=== PATIENT | male | born 1940 | race Caucasian/White ===

== ENCOUNTER 2017-01-09 11:25 | Emergency (ER) | payer OTHER, MEDICARE ==
[~2017-01-09] VITALS: Ht 160 cm; Wt 58.5 kg
[~2017-01-09 11:25] MED LIST: MOBIC7.5 M1 PO
[2017-01-09] MEDS ORDERED: FOLIC ACID1 M1 PO (11:41)
[2017-01-09] MEDS ORDERED: PREDNISONE5 M1 PO (11:41)
[2017-01-09] MEDS ORDERED: METHOTREXATE2.5 M2 PO (11:42)
--- NOTE | 2017-01-09 12:53 | ED MVC/FALL/TRAUMA COMPLAINT ---
History of Present Illness General Chief Complaint: Fall Stated Complaint: BIBA FOR L SIDED ABD. PAIN AFTER FALL Source: patient Exam Limitations: no limitations Vital Signs & Intake/Output Vital Signs & Intake/Output Vital Signs Date Time Temp Pulse Resp B/P Pulse O2 O2 Flow FiO2 Ox Delivery Rate 01/09 1132 97.6 102 18 149/79 91 Room Air Allergies Coded Allergies: Sulfa (Sulfonamide Antibiotics) (UNKNOWN 02/12/16) Reconcile Medications Folic Acid 1 MG TABLET 1 TAB PO DAILY SUPPLIMENT (Reported) Meloxicam (Mobic) 7.5 MG TABLET 1 TAB PO DAILY PRN PAIN Methotrexate 2.5 MG TABLET 6 TAB PO QW ARTHRITIS (Reported) Oxycodone HCl/Acetaminophen (Percocet 5-325 MG Tablet) 5 MG-325 MG TABLET 1 TAB PO Q4-6 PRN PAIN Prednisone 5 MG TABLET 1 TAB PO DAILY UNKNOWN (Reported) Triage Note: PT BROUGHT IN BY AMBULANCE FROM HOME AFTER FALLING OUT OF BED YESTERDAY. PT DENIES HITTING HIS HEAD,STATES HE LANDED ON HIS LEFT ARM. ABDOMINAL PAIN STARTED AFTER FALL. Triage Nurses Notes Reviewed? yes Onset: Abrupt Duration: intermittent Timing: recent history Severity: severe Injuries/Fall Location: chest, abdomen Method of Injury: direct blow, fall Loss of Consciousness: no loss of consciousness HPI: Patient is a 76-year-old male who presents emergency room brought in by ambulance for concerns of fall that occurred 2 days ago. Patient states that 2 days ago he got up out of bed slipped and landed to the left side of his body which is arm and hand were adjacent to his abdomen where he believes that is hand struck his left side of his abdomen and chest and which she has been in pain since. Patient at rest has no pain however with movement and palpation make worse. Patient's last bowel movement was 2 days ago no blood no melena noted. Denies any hematuria. Denies any shortness of breath cough hemoptysis back pain neck pain extremity pain. Denies any preceding episode of lightheadedness or dizziness. Patient has not been taking any medications for symptoms. (JATIN MCNAIR,ISAÍAS) Past History Travel History Traveled to [place] past 21 day No Medical History Any Pertinent Medical History? see below for history Respiratory: COPD Musculoskeletal: rheumatoid arthritis Pneumonia Vaccine: 10/30/16 Influenza Vaccine: 10/30/16 Surgical History Surgical History: non-contributory Psychosocial History What is your primary language Wallisian Tobacco Use: Quit >30 days ago ETOH Use: denies use Illicit Drug Use: denies illicit drug use Family History Hx Contributory? No (ISAÍAS HARRIS) Review of Systems Review of Systems Constitutional: Reports: no symptoms. Eyes: Reports: no symptoms. Ears, Nose, Throat, Mouth: Reports: no symptoms. Respiratory: Reports: see HPI. Cardiovascular: Reports: see HPI, chest pain. Gastrointestinal/Abdominal: Reports: no symptoms. Genitourinary: Reports: no symptoms. Musculoskeletal: Reports: no symptoms. Skin: Reports: no symptoms. Neurological/Psychological: Reports: no symptoms. All Other Systems: Reviewed and Negative (ISAÍAS HARRIS) Physical Exam Physical Exam General Appearance: no apparent distress, alert, comfortable Comments: Well-developed well-nourished person in no acute distress HEENT: Normal EENT exam, extraocular motion intact, no nystagmus. Pupils equally round and reactive to light and accommodation. Nose is atraumatic. External auditory canal and Tympanic membranes clear. Pharynx normal. No swelling or edema. Neck: Supple, no lymphadenopathy, normal range of motion without pain or tenderness No central spinous tenderness Back: Nontender, no CVA tenderness. No central spinous tenderness Cardiovascular: Regular rate and rhythms no murmurs rubs or gallops, normal JVP Respiratory: No respiratory distress.breath sounds clear to auscultation bilaterally Abdomen: Soft, nondistended, no appreciable organomegaly. Normal bowel sounds. No ascites Extremity: No edema, no calf tenderness to palpation, normal and equal pulses. Neuro: Alert oriented x3, motor sensory normal, cranial nerves II through XII grossly intact. Skin: No appreciable rash on exposed skin, skin is warm and dry. Psych: Mood and affect is normal, memory and judgment is normal. Diagram Body: 1) Left anterior and lateral chest wall point tenderness noted, normal inspection, Left upper quadrant and flank point tenderness noted Core Measures ACS in differential dx? No Severe Sepsis Present: No Septic Shock Present: No (ISAÍAS HARRIS) Progress Differential Diagnosis: aoritic dissection, abd injury, C/T/L spine injury, ext injury, ICH, pelvis injury, pnemothorax, spinal cord injury Plan of Care: Orders Procedure Date/time Status HEPATIC FUNCTION PANEL 01/09 1325 Complete Laboratory Tests 01/09/17 1330: Total Bilirubin 0.9, Direct Bilirubin 0.5 H, AST 89 H, ALT 186 H, Alkaline Phosphatase 126, Total Protein 5.6 L, Albumin 3.1 L On initial examination patient has concerns of chest wall and abdominal wall contusion and trauma CT scan was obtained which I discussed with radiologist for concerns of significant metastasis There was a finding of a L1 compression fracture most likely subacute in which patient had a nontender central spine. I had a long discussion with the patient and a family member of the CT scan results for concerns of metastasis and I strongly advised patient to follow-up oncology for further evaluation treatment. On discharge patient looks well no apparent distress and will comply with discharge instructions and had no questions. He was noted to me the patient has had weight loss in the past year and which most likely CT scan for concerns of metastasis is an incidental finding Discussed disposition and plan with who agrees (JATIN MCNAIR,ISAÍAS) Diagnostic Imaging: Viewed by Me: CT Scan. Radiology Impression: no fracture, SEE COMMENTS Comments: PATIENT: JULIET DAVIDSON PRESENT AGE: 76 PATIENT ACCOUNT NO: [id number] : 39 LOCATION: [facility] ORDERING PHYSICIAN: ISAÍAS MCNAIR SERVICE DATE: 01/09/17 EXAM TYPE: CAT - CT ABD & PELVIS W/O IV CONTRAS; CT CHEST WO IV CONTRAST Addendum: Of note, the liver is diffusely heterogeneous and there are probably multiple masses visualized within the liver. Findings were all discussed with TABBY Allen at 2:10PM on 01/09/2017. Addendum Signed by: CHOCO LAZO MD 01/09/17 4458 EXAMINATION: CT OF THE CHEST, ABDOMEN, AND PELVIS WITHOUT CONTRAST CLINICAL INFORMATION: Fall. Left chest and abdominal pain. COMPARISON: Chest x-ray from 12/29/2016. MRI of the lumbar spine from 11/05/2016 TECHNIQUE: CT scanning of the chest, abdomen, and pelvis was performed without contrast. Coronal and sagittal reformatted images were generated. FINDINGS: Chest: The aorta is normal in caliber with scattered atherosclerotic calcification. No mediastinal hematomas. There is mediastinal lymphadenopathy, including a 1.3 cm precarinal lymph node. There are several abnormal epigastric lymph nodes and lymph nodes at the gastroesophageal junction. In the subcarinal region, intimately associated with the esophagus there is a 3.1 x 4.0 cm mass or enlarged lymph node. There is esophageal luminal narrowing at this level, and above this fluid within the esophagus. In addition there is right hilar adenopathy. There is associated narrowing of the proximal right-sided bronchi. The heart is normal in caliber. There are scattered coronary calcifications as well as calcifications at the aortic valve. There is a trace amount of pericardial fluid. There is extensive emphysematous change throughout both lungs. There is circumferential pleural thickening within the right hemithorax with some areas of nodularity and overall slight volume loss in the right hemithorax. In addition, there are discrete peripheral nodules measuring 4 to 5 mm within the right upper lobe and fairly extensive nodularity along the right major fissure. There is a somewhat loculated appearing small right pleural effusion with associated compressive atelectasis. There is also peripheral reticular abnormalities in the right lung suggesting some degree of fibrosis. Within the left lung in addition to emphysematous change there are some faint subpleural nodular opacities, the largest of which measures 6 mm, and some reticulation at the left base. Abdomen/pelvis: The liver is not well assessed due to technique. There is a vague area of hypoattenuation measuring approximately 3.6 cm in the anterior right lobe. The gallbladder is unremarkable. Both adrenal glands appear somewhat nodular and thick. Neither kidney demonstrates hydronephrosis. There is an oval 3.5 cm mass within the right kidney with Hounsfield units of approximately 16 suggesting a cyst. Calcification in both renal eduar appear vascular. The pancreas appears unremarkable. Loops of small and large bowel appear normal in caliber. Extensive diverticula are present without evidence of diverticulitis. There is moderate stool in the proximal colon. There is an abrupt caliber change in the region of the splenic flexure. Correlation with colonoscopy is recommended. No convincing mediastinal or retroperitoneal lymph nodes are visualized. No convincing pelvic sidewall lymph nodes are visualized. There is an asymmetric 1.2 cm left inguinal lymph node, nonspecific. There is fusiform dilatation of the infrarenal aorta measuring 2.6 cm with moderate calcification. No ascites or free intraperitoneal air. No significant hernia as in the abdominal wall. The pelvic viscera are notable for prostatic calcifications. The bladder is unremarkable. Osseous structures: There are 5 nonrib-bearing lumbar type vertebral bodies. There is a mild compression deformity along the superior endplate of L1 with sclerosis, new from 11/05/2016. Otherwise there is mild thoracolumbar spondylosis. No convincing acute rib fractures. IMPRESSION: 1. Acute to subacute mild compression deformity of L1 without retropulsion of bony fragments. 2. Constellation of findings within the chest suspicious for malignancy, including a large subcarinal mass with esophageal luminal narrowing, as well as right hilar adenopathy with bronchial narrowing. Additional scattered lymph nodes are described as above. There is abnormal interstitial/reticular markings within the right lung with fairly extensive pleural thickening/nodularity. Comparison to prior cross-sectional studies would be useful. Bronchoscopy may be considered for additional assessment. Underlying emphysematous change is evident bilaterally, with scattered bilateral pulmonary nodules measuring up to 6 mm. 3. Vague 3.6 cm hypoattenuating region within the liver may also reflect neoplasm. Nonspecific bilateral nodularity of both adrenal glands. 4. Abrupt caliber change of the colon at the splenic flexure. Correlation with colonoscopy is recommended. 5. Nonspecific, asymmetric 1.2 cm left inguinal lymph node. 6. Fusiform dilatation of the infrarenal abdominal aorta measuring up to 2.6 cm. (ISAÍAS HARRIS) Departure Departure Disposition: HOME OR SELF CARE Condition: Stable Clinical Impression Primary Impression: Chest wall pain Secondary Impressions: Abdominal wall pain, Metastasis Referrals: ANTHONY BUTLER,POONAM HAQUE MD,ANALISA (PCP/Family) Additional Instructions: As discussed begin the prescription of Percocet for pain. Today please CALL AND follow up TO establish oncologist Dr. CRUZ for further evaluation treatment. If symptoms worsen return to emergency room. Prescriptions waiting at [facility]. Departure Forms: Customer Survey General Discharge Information Prescriptions: Current Visit Scripts Oxycodone HCl/Acetaminophen (Percocet 5-325 MG Tablet) 1 TAB PO Q4-6 PRN PAIN #15 TAB (ISAÍAS HARRIS) PA/GREY TENDER Co-Sign Statement Statement: ED Attending supervision documentation- [X] I saw and evaluated the patient. I have also reviewed all the pertinent lab results and diagnostic results. I agree with the findings and the plan of care as documented in the PA's/GREY TENDER's documentation. [X] I have reviewed the ED Record and agree with the PA's/GREY TENDER's documentation. [] Additions or exceptions (if any) to the PAs/GREY TENDER's note and plan are summarized below: [] (YOUNG BUTLER,REINA)
--- NOTE | 2017-01-09 14:09 | CT SCAN REPORT ---
EXAMINATION: CT OF THE CHEST, ABDOMEN, AND PELVIS WITHOUT CONTRAST CLINICAL INFORMATION: Fall. Left chest and abdominal pain. COMPARISON: Chest x-ray from 12/29/2016. MRI of the lumbar spine from 11/05/2016 TECHNIQUE: CT scanning of the chest, abdomen, and pelvis was performed without contrast. Coronal and sagittal reformatted images were generated. FINDINGS: Chest: The aorta is normal in caliber with scattered atherosclerotic calcification. No mediastinal hematomas. There is mediastinal lymphadenopathy, including a 1.3 cm precarinal lymph node. There are several abnormal epigastric lymph nodes and lymph nodes at the gastroesophageal junction. In the subcarinal region, intimately associated with the esophagus there is a 3.1 x 4.0 cm mass or enlarged lymph node. There is esophageal luminal narrowing at this level, and above this fluid within the esophagus. In addition there is right hilar adenopathy. There is associated narrowing of the proximal right-sided bronchi. The heart is normal in caliber. There are scattered coronary calcifications as well as calcifications at the aortic valve. There is a trace amount of pericardial fluid. There is extensive emphysematous change throughout both lungs. There is circumferential pleural thickening within the right hemithorax with some areas of nodularity and overall slight volume loss in the right hemithorax. In addition, there are discrete peripheral nodules measuring 4 to 5 mm within the right upper lobe and fairly extensive nodularity along the right major fissure. There is a somewhat loculated appearing small right pleural effusion with associated compressive atelectasis. There is also peripheral reticular abnormalities in the right lung suggesting some degree of fibrosis. Within the left lung in addition to emphysematous change there are some faint subpleural nodular opacities, the largest of which measures 6 mm, and some reticulation at the left base. Abdomen/pelvis: The liver is not well assessed due to technique. There is a vague area of hypoattenuation measuring approximately 3.6 cm in the anterior right lobe. The gallbladder is unremarkable. Both adrenal glands appear somewhat nodular and thick. Neither kidney demonstrates hydronephrosis. There is an oval 3.5 cm mass within the right kidney with Hounsfield units of approximately 16 suggesting a cyst. Calcification in both renal eduar appear vascular. The pancreas appears unremarkable. Loops of small and large bowel appear normal in caliber. Extensive diverticula are present without evidence of diverticulitis. There is moderate stool in the proximal colon. There is an abrupt caliber change in the region of the splenic flexure. Correlation with colonoscopy is recommended. No convincing mediastinal or retroperitoneal lymph nodes are visualized. No convincing pelvic sidewall lymph nodes are visualized. There is an asymmetric 1.2 cm left inguinal lymph node, nonspecific. There is fusiform dilatation of the infrarenal aorta measuring 2.6 cm with moderate calcification. No ascites or free intraperitoneal air. No significant hernia as in the abdominal wall. The pelvic viscera are notable for prostatic calcifications. The bladder is unremarkable. Osseous structures: There are 5 nonrib-bearing lumbar type vertebral bodies. There is a mild compression deformity along the superior endplate of L1 with sclerosis, new from 11/05/2016. Otherwise there is mild thoracolumbar spondylosis. No convincing acute rib fractures. IMPRESSION: 1. Acute to subacute mild compression deformity of L1 without retropulsion of bony fragments. 2. Constellation of findings within the chest suspicious for malignancy, including a large subcarinal mass with esophageal luminal narrowing, as well as right hilar adenopathy with bronchial narrowing. Additional scattered lymph nodes are described as above. There is abnormal interstitial/reticular markings within the right lung with fairly extensive pleural thickening/nodularity. Comparison to prior cross-sectional studies would be useful. Bronchoscopy may be considered for additional assessment. Underlying emphysematous change is evident bilaterally, with scattered bilateral pulmonary nodules measuring up to 6 mm. 3. Vague 3.6 cm hypoattenuating region within the liver may also reflect neoplasm. Nonspecific bilateral nodularity of both adrenal glands. 4. Abrupt caliber change of the colon at the splenic flexure. Correlation with colonoscopy is recommended. 5. Nonspecific, asymmetric 1.2 cm left inguinal lymph node. 6. Fusiform dilatation of the infrarenal abdominal aorta measuring up to 2.6 cm.
[2017-01-09] MEDS ORDERED: PERCOCET 5-3251 EACH PO (14:33)
[2017-01-09 14:48] VITALS: BP 150/70
== END 2017-01-09 14:50 ==
LOC: ERH 11:25
DX: R07.89 Other chest pain (principal); R10.9 Unspecified abdominal pain
CPT/HCPCS: 74176

== ENCOUNTER 2017-01-20 08:35 | Inpatient (IN) | payer OTHER, MEDICARE ==
[~2017-01-20] VITALS: Ht 165.1 cm; Wt 59.1 kg
[~2017-01-20 08:35] MED LIST changes: +FOLIC ACID1 M1 PO; +METHOTREXATE2.5 M2 PO; +PERCOCET 5-3251 EACH PO; +PREDNISONE5 M1 PO
[2017-01-20 09:06] LABS: MEAN CORPUSCULAR VOLUME 101.9 FL (80.0-94.0)
[2017-01-20 09:15] LABS: HEMATOCRIT 51.4 % (42-52); MEAN CORPUSCULAR HGB 33.6 PG (27.0-31.0); MEAN PLATELET VOLUME 8.9 FL (7.4-10.4); PLATELET COUNT 192 /CUMM (130-400); RBC DISTRIBUTION WIDTH 19.5 % (11.5-14.5); RED BLOOD CELL CT 5.04 /CUMM (4.70-6.10); WHITE BLOOD CELL COUNT 9.1 /CUMM (4.8-10.8)
--- NOTE | 2017-01-20 09:58 | ED DYSPNEA/ASTHMA COMPLAINT ---
History of Present Illness General Chief Complaint: Dyspnea (COPD, CHF, Other) Stated Complaint: SOB Source: patient, family, old records, EMS Exam Limitations: clinical condition Vital Signs & Intake/Output Vital Signs & Intake/Output Vital Signs Date Time Temp Pulse Resp B/P Pulse O2 O2 Flow FiO2 Ox Delivery Rate 01/20 1750 98.6 104 20 105/70 91 01/20 1614 100 96 01/20 1451 93 BIPAP 60% 01/20 1315 98.6 108 22 98/61 90 BIPAP 60% 01/20 1228 110 92 01/20 1143 108 30 118/68 95 BIPAP 60% 01/20 1133 110 94 01/20 1118 92 Nasal 4.0L Cannula 01/20 1116 105 92 01/20 1112 103 30 106/57 97 BIPAP 100% 01/20 1037 95.9 108 30 112/58 95 BIPAP 100% 01/20 1000 114 34 98/57 91 BIPAP 100% 01/20 0937 156 87 01/20 0924 122 20 90 BIPAP 100% 01/20 0923 95.1 151 26 108/61 01/20 0909 77 Room Air 01/20 0903 95.1 151 26 108/61 77 Room Air Allergies Coded Allergies: Sulfa (Sulfonamide Antibiotics) (UNKNOWN 02/12/16) Reconcile Medications Folic Acid 1 MG TABLET 1 TAB PO DAILY SUPPLIMENT (Reported) Methotrexate 2.5 MG TABLET 6 TAB PO QW ARTHRITIS (Reported) Oxycodone HCl/Acetaminophen (Percocet 5-325 MG Tablet) 5 MG-325 MG TABLET 1 TAB PO Q4-6 PRN PAIN Prednisone 5 MG TABLET 1 TAB PO DAILY UNKNOWN (Reported) Triage Note: 76 Y/O MALE SUZIE FROM HOME FOR EVAL OF SOB SINCE LAST NIGHT; PER EMS, PT WAS DIAGNOSED WITH ? LIVER CANCER AT [place] LAST WEEK - BEGAN HAVING SOB LAST NIGHT BUT WENT TO BED AND WOKE UP MUCH WORSE. PROCUREMENT INTERNSHIP REPORTS 02 SAT IN 70'S ON THEIR ARRIVAL; RECEIVED DUO NEB EN ROUTE. ARRIVES ALERT AND ORIENTED X 4; TACHYPNEIC WITH ACCESSORY MUSCLE USE NOTED. PT REPORTS SOB X 2 DAYS WITH COUGH AND "WHITE PHLEGM". AMARO MUCOUS NOTED IN MOUTH AND AROUND LIPS. LUNGS SOUNDS DIMINISHED WITH CRACKLES. SAT 77% RA. PT STATES DUO NEB TX HELPED. DENIES PAIN. REPORTS DECREASED APPETITE AND PO INTAKE OVER THE LAST FEW DAYS PRE HOSPITAL IV HEPLOCKED. 20G PLACED TO LFA EKG COMPLETE AND SHOWING TACHYCARDIA UP TO 170S, ? SVT. MD JULIEN AT THE BEDSIDE Triage Nurses Notes Reviewed? yes Onset: Last week Duration: day(s):, constant, getting worse Timing: recent history Severity: severe Activities at Onset: rest Prior Episodes/Possible Cause: recent diagnosis of lung cancer Modifying Factors: Worsens With: movement. Associated Symptoms: cough, weakness HPI: One week prior to admission patient was diagnosed with lung cancer and likely metastases to the liver. Since discharge he has had progressive weakness shortness of breath cough fatigue anorexia with discoloration nose hands and feet. There has been no fever chills nausea vomiting diarrhea abdominal pain chest pain headache dysuria bleeding. Past History Travel History Traveled to [place] past 21 day No Medical History Any Pertinent Medical History? see below for history Neurological: NONE EENT: NONE Cardiovascular: NONE Respiratory: COPD Gastrointestinal: NONE Hepatic: ? LIVER CA Renal: NONE Musculoskeletal: rheumatoid arthritis Psychiatric: NONE Endocrine: NONE Blood Disorders: NONE Cancer(s): liver cancer PSYCHOLOGICAL ANTHROPOLOGIST/Reproductive: NONE Pneumonia Vaccine: 10/30/16 Influenza Vaccine: 10/30/16 Surgical History Surgical History: non-contributory Psychosocial History What is your primary language Tuvaluan Tobacco Use: Quit >30 days ago Family History Hx Contributory? No Review of Systems Review of Systems Constitutional: Reports: see HPI, weakness. EENTM: Reports: no symptoms. Respiratory: Reports: see HPI, cough. Cardiovascular: Reports: no symptoms. GI: Reports: no symptoms. Genitourinary: Reports: no symptoms. Musculoskeletal: Reports: no symptoms. Skin: Reports: see HPI, change in skin color. Neurological/Psychological: Reports: no symptoms. Hematologic/Endocrine: Reports: no symptoms. Immunologic/Allergic: Reports: no symptoms. All Other Systems: Reviewed and Negative Physical Exam Physical Exam General Appearance: well developed/nourished, alert, awake, anxious, severe distress, thin Head: atraumatic, normal appearance Eyes: Bilateral: normal appearance, PERRL, EOMI. 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 No Severe Sepsis Present: No Septic Shock Present: No Progress Differential Diagnosis: AMI, COPD, pneumonia Plan of Care: Orders Procedure Date/time Status Regular Diet 01/21 L Active CBC WITHOUT DIFFERENTIAL 01/21 0600 Active BASIC ELECTROLYTES PLUS BUN&CR 01/21 0600 Active Regular Diet 01/20 D Active PARTIAL THROMBOPLASTIN TIME 01/20 2330 Active TROPONIN LEVEL 01/20 2115 Active EKG 01/20 2115 Active Vital Signs 01/20 1450 Active Teach/Educate 01/20 1450 Active Nutritional Intake, Monitor 01/20 1450 Active Isolation 01/20 1450 Active Intake & Output 01/20 1450 Active Patient Care Conference 01/20 1450 Active Activity/Ambulation 01/20 1450 Active TROPONIN LEVEL 01/20 1400 Complete AMMONIA 01/20 1400 Complete LACTIC ACID 01/20 1400 Complete EKG 01/20 1400 Active Code Status 01/20 1249 Active Add-on Test (ER Only) 01/20 1215 Active PULSE OXIMETRY (GEN) 01/20 1210 Active LACTIC ACID 01/20 1147 Complete PROTHROMBIN TIME 01/20 1135 Complete D-DIMER 01/20 1135 Complete OXYGEN SETUP (GEN) 01/20 1121 Complete BIPAP 01/20 1120 Complete Pathway - chart 01/20 1102 Active Patient Data 01/20 1055 Active THYROID STIMULATING HORMONE 01/20 0955 Complete MAGNESIUM 01/20 0955 Complete FREE T4 01/20 0955 Complete Saline Lock 01/20 0938 Active Admit to inpatient 01/20 0938 Active Vital Signs 01/20 0938 Active Activity/Ambulation 01/20 0938 Active Code Status 01/20 0938 Complete EKG 01/20 0916 Active BIPAP 01/20 0915 Complete Intake & Output 01/20 0906 Active ARTERIAL BLOOD GAS (GEN) 01/20 0847 Complete BLOOD CULTURE 01/20 0847 Active TROPONIN LEVEL 01/20 0847 Complete LACTIC ACID 01/20 0847 Complete COMPREHENSIVE METABOLIC PANEL 01/20 0847 Complete CBC WITHOUT DIFFERENTIAL 01/20 0847 Complete B-TYPE NATRIURETIC PEP (BNP) 01/20 0847 Complete EKG 01/20 0842 Active Periph. Inserted Central Cath 01/20 UNK Active House Staff 01/20 UNK Active VTE Mechanical Prophylaxis 01/20 UNK Active Vital Signs 01/20 UNK Complete Telemetry/Utility Manager 01/20 UNK Active Current Medications Sig/Walter Start time Last Medication Dose Stop Time Status Admin Azithromycin 500 MG DAILY 01/21 1000 CAN (Zithromax) Dextrose/Water 250 ML (D5W) Ceftriaxone Sodium 1,000 MG DAILY 01/21 1000 CAN (Rocephin) Ceftazidime 1,000 MG Q12 01/20 2200 AC (Fortaz) Sodium Chloride 1,000 ML Q13H 01/20 2200 AC (Normal Saline 0.9%) Acetaminophen 650 MG Q6P PRN 01/20 1115 AC (Tylenol) Hydromorphone HCl 0.5 MG Q4P PRN 01/20 1115 AC (Dilaudid) Oxycodone/ 1 TAB Q6P PRN 01/20 1115 AC Acetaminophen (Percocet) Laboratory Tests 01/20/17 1515: Lactic Acid 3.8 H, Ammonia 14, Troponin I 0.34 *H 01/20/17 1142: Lactic Acid 6.7 H, PT 16.8 H, INR 1.61 H, D-Dimer 1563 H 01/20/17 1139: Troponin I Cancelled 01/20/17 0955: Anion Gap 18 H, Estimated GFR 42 L, BUN/Creatinine Ratio 19.4, Glucose 91, Lactic Acid 10.4 H, Calcium 9.3, Magnesium 2.1, Total Bilirubin 2.3 H, AST 645 H, ALT 427 H, Alkaline Phosphatase 211 H, Troponin I 0.08, Duq-G-Mleefosppxz Pept 2370 H, Total Protein 4.9 L, Albumin 2.3 L, Globulin 2.6, Albumin/ Globulin Ratio 0.9 L, TSH 0.021 L, Free T4 0.63 L 01/20/17 0915: pH 7.35, pCO2 27 L, pO2 51 L, HCO3 15 L, ABG O2 Sat (Measured) 87.0 L, P-50 (Temp Corrected) YES, Carboxyhemoglobin 1.8, O2 Concentration % 100%, Temperature 95.1 L, Respiration Rate 26, O2 Delivery Method BIPAP, Vent Mode AC , Expiratory Pressure 6, Inspiratory Pressure 22, Phlebotomy Draw Site RIGHT BRACHIAL 01/20/17 0856: CBC w Diff MAN DIFF ORDERED, RBC 5.04, MCV 101.9 H, MCH 33.6 H, RDW 19.5 H, MPV 8.9, Segmented Neutrophils 71, Band Neutrophils 20 H, Lymphocytes 4 L, Monocytes 5, Platelet Estimate ADEQUATE, Anisocytosis 1+, Macrocytic Cells FEW, PUBS MCHC 33.0 Microbiology 01/20 1007 BLOOD: Blood Culture - RECD 01/20 0955 BLOOD: Blood Culture - RECD Diagnostic Imaging: Viewed by Me: Radiology Read. Discussed w/RAD: Radiology Read. CXR Impression: Right mid to lower lung zone airspace disease suspicious for pneumonia. Clinical correlation recommended. There is a small to moderate right pleural effusion. Initial ED EKG: rhythm (svt), RBBB Prior EKG: unchanged Rhythm Strip: sinus tachycardia Departure Departure Time of Disposition: 1000 Disposition: STILL A PATIENT Condition: Guarded Clinical Impression Primary Impression: Obstructive pneumonia Secondary Impressions: Acute prerenal azotemia, Elevated troponin, SVT ( supraventricular tachycardia) Referrals: ANALISA HAQUE MD (PCP/Family) Departure Forms: Customer Survey General Discharge Information Admission Note Spoke With: ANALISA HAQUE MD Documentation of Exam: Documentation of any treatments & extenuating circumstances including Concerns Regarding Discharge (functional status, medication knowledge or non-compliance, living conditions, etc.) that warrant an admission rather than observation: Supplemental oxygen IV antibiotics serial lab exam serial EKG cardiology evaluation oncology evaluation medication adjustment interventional radiology evaluation continuing care discharge planning Critical Care Note Critical Care Note Critical Care Time: 30-74 min (40)
--- NOTE | 2017-01-20 10:19 | RADIOLOGY REPORT ---
EXAMINATION: XR PORTABLE CHEST CLINICAL INFORMATION: Pneumonia. History of COPD and lung metastases with shortness of breath. COMPARISON: Chest radiographs 12/29/2016, CT chest 01/09/2017 TECHNIQUE: Portable AP view of the chest was obtained. FINDINGS: Interval increase in airspace disease within the right mid to lower lung zone. There is a small to moderate right pleural effusion. The left lung is grossly clear. Stable cardiomediastinal silhouette. No pneumothorax. Osseous structures appear intact. IMPRESSION: Right mid to lower lung zone airspace disease suspicious for pneumonia. Clinical correlation recommended. There is a small to moderate right pleural effusion.
--- NOTE | 2017-01-20 10:57 | History & Physical ---
See Addendum General Information and HPI MD Statement: I have seen and personally examined JULIET DAVIDSON and documented this H&P. The patient is a 76 year old M who presented with a patient stated chief complaint of [SHORTNESS OF BREATH]. Source of Information: patient, family, old records History of Present Illness: This is a 76-year-old male with a past medical history of hypertension, rheumatoid arthritis currently on methotrexate and prednisone therapy, former smoker quit 9 months back with a [id number] smoking history ,who presented to the [facility] emergency department after being brought in by his family members for worsening shortness of breath and altered mental status. The patient was seen in emergency department [facility] on 01/09/2017 when the patient had a mechanical fall. The family brought the patient to the ER for suspicion of any rib fractures but the CAT scan and the imaging done at that time showed an incidental finding off metastatic lesion in the lungs neoplastic suspicion mass on the liver. The patient was scheduled for a liver biopsy today but the patient was feeling short of breath since morning and was feeling weak and fatigued and hence was brought to the emergency department by the family for persistent weakness and shortness of breath. As per the patient's son, the patient was complaining of shortness of breath since 3 days back which has worsened over the weekend. He denied any fever or chills but has been having productive sputum with the cough. The son also noted that the patient was having some mild slurring of speech as well which were resolved at the time of admission in the ER. The patient was awake alert oriented 3 when I saw the patient in the ER. The patient apparently completed a course of levofloxacin for 10 days as an outpatient started from December 29 2 01/07/2017. The patient's symptoms did not completely subsided after the antibiotics course. Events notes As per the ER staff and notes The patient's initial saturation was 77% and on examination was found to have. "Bluish grayish discoloration" around the perioral area. The patient was also found to have peripheral cyanosis of hands The patient EKG showed wide complex tachycardia and on the suspicion of supraventricular tachycardia the patient was given 6 mg of IV adenosine after that the patient heart rate went to sinus tachycardia and decreased from 172 TO 108. Allergies/Medications Allergies: Coded Allergies: Sulfa (Sulfonamide Antibiotics) (UNKNOWN 02/12/16) Home Med list Folic Acid 1 MG TABLET 1 TAB PO DAILY SUPPLIMENT (Reported) Methotrexate 2.5 MG TABLET 6 TAB PO QW ARTHRITIS (Reported) Oxycodone HCl/Acetaminophen (Percocet 5-325 MG Tablet) 5 MG-325 MG TABLET 1 TAB PO Q4-6 PRN PAIN Prednisone 5 MG TABLET 1 TAB PO DAILY UNKNOWN (Reported) Past History Travel History Traveled to [place] past 21 day No Medical History Neurological: NONE EENT: NONE Cardiovascular: NONE Respiratory: COPD Gastrointestinal: NONE Hepatic: ? LIVER CA Renal: NONE Musculoskeletal: rheumatoid arthritis Psychiatric: NONE Endocrine: NONE Blood Disorders: NONE Cancer(s): liver cancer SERVICE CONSULTANT/Reproductive: NONE Pneumonia Vaccine: 10/30/16 Influenza Vaccine: 10/30/16 Surgical History Surgical History: non-contributory Past Family/Social History Family History Relations & Conditions if any FATHER BROTHER Relation not specified for: FH: stomach cancer Psychosocial History Where do you live? Home Who Do You Live With? spouse Smoking Status: Former Smoker (quit 9 months back) Review of Systems Review of Systems Constitutional: Reports: see HPI. EENTM: Reports: see HPI. Denies: visual changes. Cardiovascular: Reports: orthopena. Denies: chest pain, edema. Respiratory: Reports: cough, orthopnea, short of breath, sputum production. GI: Denies: bloating, diarrhea, distention, bowel incontinence. Genitourinary: Denies: discharge, dysuria, frequency, hematuria. Musculoskeletal: Denies: joint pain, joint swelling. Neurological/Psychological: Reports: confusion, headache. Exam & Diagnostic Data Last 24 Hrs of Vital Signs/I&O Vital Signs Date Time Temp Pulse Resp B/P Pulse O2 O2 Flow FiO2 Ox Delivery Rate 01/20 1143 108 30 118/68 95 BIPAP 60% 01/20 1133 110 94 01/20 1118 92 Nasal 4.0L Cannula 01/20 1116 105 92 01/20 1112 103 30 106/57 97 BIPAP 100% 01/20 1037 95.9 108 30 112/58 95 BIPAP 100% 01/20 1000 114 34 98/57 91 BIPAP 100% 01/20 0937 156 87 01/20 0924 122 20 90 BIPAP 100% 01/20 0923 95.1 151 26 108/61 01/20 0909 77 Room Air 01/20 0903 95.1 151 26 108/61 77 Room Air Intake & Output 01/20 1600 01/20 0800 01/20 0000 Intake Total 2550 Output Total Balance 2550 Intake, IV 2550 Physical Exam General Appearance Oriented X3, Cooperative, Moderate Distress Skin No Breakdown HEENT Atraumatic, PERRLA, EOMI Neck No JVD, No thryomegaly Lymphatic Axillary nl, Cervical nl Cardiovascular Normal S1, Normal S2 Lungs bilateral decreased airway entry and diminished breath sounds Abdomen Soft, No Tenderness Neurological Strength at 5/5 X4 Ext Extremities No Cyanosis, No Edema Last 24 Hrs of Labs/Jordy: Laboratory Tests 01/20/17 1142: Lactic Acid Pending, PT Pending, INR Pending, D-Dimer Pending 01/20/17 1139: Troponin I Cancelled 01/20/17 0955: Anion Gap 18 H, Estimated GFR 42 L, BUN/Creatinine Ratio 19.4, Glucose 91, Lactic Acid 10.4 H, Calcium 9.3, Total Bilirubin 2.3 H, AST 645 H, ALT 427 H , Alkaline Phosphatase 211 H, Troponin I 0.08, Khd-H-Gsoeliynnez Pept 2370 H, Total Protein 4.9 L, Albumin 2.3 L, Globulin 2.6, Albumin/Globulin Ratio 0.9 L 01/20/17 0915: pH 7.35, pCO2 27 L, pO2 51 L, HCO3 15 L, ABG O2 Sat (Measured) 87.0 L, P-50 (Temp Corrected) YES, Carboxyhemoglobin 1.8, O2 Concentration % 100%, Temperature 95.1 L, Respiration Rate 26, O2 Delivery Method BIPAP, Vent Mode AC , Expiratory Pressure 6, Inspiratory Pressure 22, Phlebotomy Draw Site RIGHT BRACHIAL 01/20/17 0856: CBC w Diff MAN DIFF ORDERED, RBC 5.04, MCV 101.9 H, MCH 33.6 H, RDW 19.5 H, MPV 8.9, Segmented Neutrophils 71, Band Neutrophils 20 H, Lymphocytes 4 L, Monocytes 5, Platelet Estimate ADEQUATE, Anisocytosis 1+, Macrocytic Cells FEW, PUBS MCHC 33.0 Microbiology 01/20 1007 BLOOD: Blood Culture - RECD 01/20 955 BLOOD: Blood Culture - RECD Diagnostic Data EKG Results Wide-complex tachycardia Assessment/Plan Assessment: This 76-year-old male with a past medical history of rheumatoid arthritis, presented to the [facility] emergency department with persistent shortness of breath and mild altered mental status with a history of new diagnosis of metastatic sent as mass found incidentally and the abdominal CAT scan done 2 weeks back. Vitals at the time of admission shows: 108/61, pulse ox of 77 initially which improved to 94% on BiPAP currently on BiPAP at the setting off 22 x 6 and 28, afebrile afebrile temperature of 95.1 Labs at the time of admission shows lactic of 10.4, normal CBC and WBC but with a band neutrophils of 20, Labs chemistry shows a creatinine of 1.6 elevated BUNs, elevated transaminitis ABG shows normal pH 7.35/27/51 and a bicarbonate of 21 Chest x-ray shows Right mid to lower lung zone airspace disease suspicious for pneumonia. There is a small to moderate right pleural effusion. CT scan of the chest and abdomen done on 01/09/2017 shows 1. Acute to subacute mild compression deformity of L1 without retropulsion of bony fragments. 2. Constellation of findings within the chest suspicious for malignancy, including a large subcarinal mass with esophageal luminal narrowing, as well as right hilar adenopathy with bronchial narrowing 3.Vague 3.6 cm hypoattenuating region within the liver may also reflect neoplasm. Nonspecific bilateral nodularity of both adrenal glands. EKG shows wide complex tachycardia to a maximum 170s Assessment 1. Acute hypoxic respiratory failure most likely secondary to obstructive pneumonia(after failure to the outpatient therapy with levofloxacin). The other important differentials that needs to be considered is an acute pulmonary embolism considering the patient diagnosis of metastatic cancer. Another possibility could be the presence of parapneumonic effusion again secondary to unresolved pneumonia to the outpatient therapy and possibly metastatic lesions to the pleura 2. Transaminitis likely secondary to methotrexate toxicity versus neoplastic lesion in the liver 3. History of rheumatoid arthritis 4. Wide complex tachycardia status post 1 dose of 6 mg IV ADENOSINE IN ER 5.lactic acidosis 6.MASHA likley-prerenal Plan: I discussed with the ED staff who recommended that the patient should go to telemetry for continuous pulse oximetry. Patient has low threshold for being transferred to the ICU as the patient is currently full code -We'll start the patient on broad-spectrum antibiotics we will discontinue ceftriaxone and azithromycin and will start on vancomycin and ceftazidime with the first dose now(dose would be adjusted renally) -Stress dose of steroids with the first one given in the ED of 125 mg -Continue with IV fluids at 75 mL per hour -We will repeat set of troponin and EKG -We will proceed with CT head and CT chest(unfortunately could not be performed with and IV contrast considering the patient's elevated creatinine) -We will proceed to get a PICC line to avoid any further(blood draws) -Proceed with transthoracic echocardiogram and place a cardiology consult -We will also call Dr. Mclain(courtesy call) Overall the patient's prognosis remains poor most likely the patient has obstructive pneumonia unlikely to lung cancer primary or secondary but more higher probability for small cell carcinoma considering previous history of smoking. I spoke to the patient's step son and stepdaughter about the patient's poor prognosis and they wanted the patient to be full code at this point. They wanted further discussion on this topic with the patient's primary care physician Dr. Cook. update on 1300: After the patient was brought to the floors the patient's family had a long discussion with the Cesar Liu MD, consulting client manager [employer] on the case and after learning about the poor prognosis the patient himself dictated to be DNR/ DNI. The patient's stepbethon, scottyon were present for the conversation.. Hence the patient would be monitored on telemetry floor on BiPAP and we will continue with all supportive measures including broad-spectrum antibiotics fluids and regular checkup as mentioned above. - As Ranked By This Provider Problem List: 1. Acute prerenal azotemia 2. Metastasis 3. Obstructive pneumonia Core Measures/Miscellaneous Acute Coronary Syndrome ACS Diagnosis: No Cerebrovascular Accident CVA/TIA Diagnosis: No Congestive Heart Failure CHF Diagnosis: No Venous Thromboembolism VTE Risk Factors: Acute medical illness, Age > 40 VTE Prophylaxis Ordered Inpt: Pharm- Lovenox No Mech VTE prophylaxis d/t: No contraindications No VTE Pharm Prophylaxis d/t: No contraindications VTE Diagnosis: No VTE Type: NONE VTE Confirmed by (Test): NONE Severe Sepsis Severe Sepsis Present: No Septic Shock Septic Shock Present: No Miscellaneous Documentation Attending Case Discussed With: ANALISA COOK MD Primary Care Physician: ANALISA COOK MD Patient sees these Specialists Dr Dickens Level of Patient Care: Telemetry
[2017-01-20 12:06] LABS: PT 16.8 SEC (9.4-12.5)
--- NOTE | 2017-01-20 12:37 | CT SCAN REPORT ---
EXAMINATION: CT HEAD WITHOUT CONTRAST CLINICAL INFORMATION: Shortness of breath. COMPARISON: MRI head 07/20/2015 TECHNIQUE: Contiguous axial imaging was performed from the skull base to vertex without intravenous administration of contrast. DLP: 600.71 mGy-cm FINDINGS: There is no evidence of acute intracranial hemorrhage or territorial infarction. No abnormal mass effect or midline shift is seen. Lubin to white matter differentiation is well preserved. No extra-axial fluid collections are identified. The ventricles are normal in size. Periventricular white matter hypodensities are noted, likely representing chronic microvascular ischemic changes. The osseous structures and soft tissues are normal. Carotid siphon calcifications. The mastoid air cells and visualized portions of the paranasal sinuses are well aerated. IMPRESSION: No acute intracranial abnormality. No intracranial hemorrhage or mass effect. Mild chronic microvascular ischemic changes.
--- NOTE | 2017-01-20 12:50 | CT SCAN REPORT ---
EXAMINATION: CT CHEST WITHOUT CONTRAST CLINICAL INFORMATION: Shortness of breath COMPARISON: 01/09/2017 TECHNIQUE: Multidetector volumetric CT imaging of the chest was done. Axial MIP volume rendering provided. Sagittal and coronal reformatted images were obtained. DLP: 243.78 mGy-cm FINDINGS: LUNGS: Since the prior examination, there is increasing opacification throughout the right lower lobe as well as within the adjacent right middle lobe. In the absence of intravenous contrast, it cannot be determined whether this reflects a specific combination of consolidation, atelectasis, and/or mass. There is redemonstrated luminal narrowing of the bronchus intermedius and proximal right lower lobe airways. Air bronchograms are visible within the basilar right lower lobe. There is extensive upper lobe predominant emphysema. There are multiple scattered subcentimeter nodular densities throughout the remainder of the lungs bilaterally, overall without significant change compared to 01/09/2017. New curvilinear opacity in the anterior left lower lobe suggests atelectasis. MEDIASTINUM: There is a redemonstrated subcarinal mass, not well delineated in the absence of intravenous contrast. The bulk of the mass appears without significant change from prior and likely extends into the right hilum. Enlarged lower right paratracheal lymph node and right paracardiac region are again demonstrated. Scattered subcentimeter lymph nodes in the remainder of the mediastinum appear similar to prior. The visualized thyroid gland is unremarkable. Cardiac size is within normal limits. There is trace pericardial fluid. Coronary artery calcifications are present. Aortic valve calcifications are present, a finding which may indicate aortic stenosis. There is atherosclerotic calcification along the aorta. PLEURA: There is a redemonstrated moderate sized pleural effusion at the right base laterally, which appears loculated. No left pleural effusion. AXILLA: No lymphadenopathy. UPPER ABDOMEN: There is suggestion of a mass in the central liver above the anitha hepatis, not adequately evaluated in the absence of intravenous contrast. OSSEOUS STRUCTURES: There is moderate to severe degenerative change of the right glenohumeral joint. Degenerative changes are noted in the spine. Superior endplate compression deformity of L1 is unchanged. IMPRESSION: 1. Redemonstrated intrathoracic findings suspicious for malignancy, including a subcarinal mass likely extending into the right hilum, as well as additional mediastinal lymphadenopathy. 2. In comparison to 01/09/2017, there is increasing airspace opacification throughout the right lower and middle lobes. Redemonstrated narrowing of the central airways in the right middle and lower lobe raise the possibility that this opacification could represent postobstructive inflammation/pneumonia. Underlying mass and/or regions of atelectasis are difficult to exclude in the absence of intravenous contrast. 3. Multiple scattered subcentimeter nodules bilaterally, similar to 01/09/2017. Extensive upper lobe predominant emphysema. 4. Redemonstrated, loculated appearing lateral right basilar pleural effusion. 5. Probable hepatic mass, not adequately assessed in the absence of intravenous contrast. 6. Redemonstrated superior L1 compression deformity, similar to prior.
--- NOTE | 2017-01-20 12:50 | Event Note ---
Event Note Event Note: Full note to follow Pt with Acuter resp failure with liver failure/dysfunction with severe met acidosis due to sepsis and liver failure DIscussed with Patient and discussed with step daughter PTs wishes are to be DNR and DNI with no ICU transfer (NO mech vent, pressors or dialysis) Plan is to do max conservative measures on the floor IF he fails will transition to comfort IF he improves will get a liver bx ABX BIPAP PICC IV fluids ULtrasound lower ext Echo to ass rv function and if his rv is dilated and in strain will start anticoag Prog very poor
--- NOTE | 2017-01-20 13:04 | Admission Certification ---
Admission Certification Certification Statement - As attending physician, I certify that at the time of - admission, based on clinical presentation, severity of - symptoms, need for further diagnostic testing and - therapeutic interventions, and risk of adverse outcomes - without in-hospital treatment, in my clinical assessment, - this patient requires an acute hospital stay for a minimum - of two nights or longer. I have also considered psychsocial - factors such as support system, advanced age, financial - issues, cognitive issues, and failed out-patient treatments, - past re-admission history, safety of patient, and lack of - compliance as applicable. Specific rationale supporting this admission is: Acute respiratory failure in a patient with history of COPD and and no diagnosed stopped if lung mass
--- NOTE | 2017-01-20 13:09 | PN- Att Addend ---
Attending Addendum Attending Brief Note 76-year-old male with rheumatoid arthritis COPD, was a heavy smoker quit recently not feeling well recently diagnosed a possible malignancy workup was started and he has been feeling more short of breath worse today came into the emergency room in acute respiratory failure lethargic. Was seen by Dr. Liu who reviewed the case and after that spoke to the family and was decided to make him DNR/DNI try to treat the postobstructive pneumonia and being on BiPAP no intubation. Patient arrived to the floor seems a little bit more comfortable and grandson at the bedside. We'll also notified oncologist and also will have a cardiology evaluation to to some EKG abnormalities the patient is already on telemetry. Laboratory Tests 01/20 01/20 01/20 1142 1139 [id number] Chemistry Sodium (137 - 145 mmol/L) 143 Potassium (3.5 - 5.1 mmol/L) 4.9 Chloride (98 - 107 mmol/L) 105 Carbon Dioxide (22 - 30 mmol/L) 21 L Anion Gap (5 - 16) 18 H BUN (9 - 20 mg/dL) 31 H Creatinine (0.7 - 1.2 mg/dL) 1.6 H Estimated GFR (>60 ml/min) 42 L BUN/Creatinine Ratio (7 - 25 %) 19.4 Glucose (65 - 99 mg/dL) 91 Lactic Acid (0.7 - 2.1 mmol/L) 6.7 H 10.4 H Calcium (8.4 - 10.2 mg/dL) 9.3 Magnesium (1.6 - 2.3 mg/dL) 2.1 Total Bilirubin (0.2 - 1.3 mg/dL) 2.3 H AST (17 - 59 U/L) 645 H ALT (21 - 72 U/L) 427 H Alkaline Phosphatase (< 127 U/L) 211 H Troponin I (<0.11 ng/ml) Cancelled 0.08 Ayp-S-Euseywjihlo Pept (<125 pg/mL) 2370 H Total Protein (6.3 - 8.2 g/dL) 4.9 L Albumin (3.5 - 5.0 g/dL) 2.3 L Globulin (1.9 - 4.2 gm/dL) 2.6 Albumin/Globulin Ratio (1.1 - 2.2 %) 0.9 L TSH (0.270 - 4.200 uIU/mL) Pending Free T4 (0.78 - 2.44 ng/dL) 0.63 L Coagulation PT (9.4 - 12.5 SEC) 16.8 H INR (0.90 - 1.17) 1.61 H D-Dimer (70 - 232 ng/ml) 1563 H 01/20 01/20 0915 0856 Blood Gas pH (7.35 - 7.45 PH) 7.35 pCO2 (35 - 45 TORR) 27 L pO2 (80 - 100 TORR) 51 L HCO3 (21 - 28 MEQ/L) 15 L ABG O2 Sat (Measured) (>96.0 %) 87.0 L P-50 (Temp Corrected) YES Carboxyhemoglobin (1.5 - 5.0 %) 1.8 O2 Concentration % 100% Temperature (97.0 - 100.0 FARH) 95.1 L Respiration Rate (BPM) 26 O2 Delivery Method BIPAP Vent Mode AC Expiratory Pressure (CM H2O P) 6 Inspiratory Pressure (CM H2O P) 22 Hematology CBC w Diff MAN DIFF ORDERED WBC (4.8 - 10.8 /CUMM) 9.1 RBC (4.70 - 6.10 /CUMM) 5.04 Hgb (14.0 - 18.0 G/DL) 17.0 Hct (42 - 52 %) 51.4 MCV (80.0 - 94.0 FL) 101.9 H MCH (27.0 - 31.0 PG) 33.6 H RDW (11.5 - 14.5 %) 19.5 H Plt Count (130 - 400 /CUMM) 192 MPV (7.4 - 10.4 FL) 8.9 Segmented Neutrophils (42.2 - 75.2 %) 71 Band Neutrophils (0.0 - 5.0 %) 20 H Lymphocytes (20.5 - 51.1 %) 4 L Monocytes (1.7 - 9.3 %) 5 Platelet Estimate (ADEQUATE) ADEQUATE Anisocytosis 1+ Macrocytic Cells FEW PUBS MCHC (33.0 - 37.0 G/DL) 33.0 Miscellaneous Phlebotomy Draw Site RIGHT BRACHIAL Abnormal chest x-ray and CT of the chest.
[2017-01-20 13:15] VITALS: BP 98/61
--- NOTE | 2017-01-20 15:51 | Event Note ---
Event Note Event Note: I spoke to Dr. Loaiza regarding the patient's white tachycardia and the elements in the ED which she received adenosine for the suspicion of SVT. I also requested requested him to see and review the patient's transthoracic echocardiogram and evaluate and measure pulmonary pressures and look for any right heart strain. In the meanwhile he recommended that it would be reasonable to start the patient on IV heparin for high suspicion of Pulmonary embolism.
--- NOTE | 2017-01-20 15:59 | Event Note ---
Event Note Event Note: Had a long conversation with the patient's stepdaughter (Kaitlyn )and stepson. The bruits were very clear and were in agreement with the patient's decision of being DNR/DNI. They also mentioned that at any point if the patient is having agonal breathing, or has increased work of breathing or has worsening respiratory symptoms and signs the patient should be started on comfort measures that is IV morphine and Ativan. They requested that they should be notified on [phone] before starting the comfort measures. In the meanwhile we will continue with broad-spectrum antibiotics and IV heparin and will follow up with pulmonology and cardiology recommendations.
--- NOTE | 2017-01-20 16:02 | RADIOLOGY REPORT ---
EXAMINATION: XR PORTABLE CHEST CLINICAL INFORMATION: PICC line placement. COMPARISON: CT of the chest done today. Chest x-ray done 01/20/2017. TECHNIQUE: Portable AP portable semierect view of the chest was obtained. FINDINGS: The dens consolidation involving the lower half of the right hemithorax is due to combination of consolidation and loculated pleural effusion. There is no improvement since exam done earlier in the day. Reticular opacities involve the right upper lobe. This could also represent a pneumonia superimposed upon emphysematous lung disease. The left lung is clear. The tip of the right-sided PICC line is the distal SVC. IMPRESSION: The tip of the right-sided PICC line is in the distal SVC. No improvement in the right lower lobe consolidation, loculated right pleural effusion, and reticular opacities the right upper lobe.
--- NOTE | 2017-01-20 16:42 | ULTRASOUND REPORT ---
EXAMINATION: US TRIPLEX LOWER EXTREMITY, BILATERAL CLINICAL INFORMATION: Hypoxia, lower extremity edema COMPARISON: None TECHNIQUE: Color-flow triplex imaging with spectral analysis and compression Doppler were performed on the bilateral lower extremities. FINDINGS: Respiratory variation, normal compression and augmented flow are noted throughout the bilateral lower extremities. The visualized common femoral vein, superficial femoral vein, profunda femoral vein, popliteal vein and midcalf peroneal and posterior tibial venous segments show no evidence of deep venous thrombosis. There is no Cat's cyst. IMPRESSION: Normal triplex scan without evidence of deep venous thrombosis involving the bilateral lower extremities.
--- NOTE | 2017-01-20 17:48 | Cons- Pulmonary ---
General Information and HPI Consulting Request Date of Consult: 01/20/17 Requested By: [facility] History of Present Illness: This is a 76-year-old male with a past medical history of hypertension, rheumatoid arthritis currently on methotrexate and prednisone therapy, former smoker quit 9 months back with a [id number] smoking history ,who presented to the [facility] emergency department after being brought in by his family members for worsening shortness of breath and altered mental status. The patient was seen in emergency department [facility] on 01/09/2017 when the patient had a mechanical fall. The family brought the patient to the ER for suspicion of any rib fractures but the CAT scan and the imaging done at that time showed an incidental finding off metastatic lesion in the lungs neoplastic suspicion mass on the liver. The patient was scheduled for a liver biopsy today but the patient was feeling short of breath since morning and was feeling weak and fatigued and hence was brought to the emergency department by the family for persistent weakness and shortness of breath. As per the patient's son, the patient was complaining of shortness of breath since 3 days back which has worsened over the weekend. He denied any fever or chills but has been having productive sputum with the cough. The son also noted that the patient was having some mild slurring of speech as well which were resolved at the time of admission in the ER. The patient was awake alert oriented 3 when I saw the patient in the ER. The patient apparently completed a course of levofloxacin for 10 days as an outpatient started from December 29 2 01/07/2017. The patient's symptoms did not completely subsided after the antibiotics course. Events notes As per the ER staff and notes The patient's initial saturation was 77% and on examination was found to have. "Bluish grayish discoloration" around the perioral area. The patient was also found to have peripheral cyanosis of hands The patient EKG showed wide complex tachycardia and on the suspicion of supraventricular tachycardia the patient was given 6 mg of IV adenosine after that the patient heart rate went to sinus tachycardia and decreased from 172 TO 108. Review of Systems Constitutional: Reports: see HPI. EENTM: Reports: see HPI. Denies: visual changes. Cardiovascular: Reports: orthopena. Denies: chest pain, edema. Respiratory: Reports: cough, orthopnea, short of breath, sputum production. GI: Denies: bloating, diarrhea, distention, bowel incontinence. Genitourinary: Denies: discharge, dysuria, frequency, hematuria. Musculoskeletal: Denies: joint pain, joint swelling. Neurological/Psychological: Reports: confusion, headache. Allergies/Medications Allergies: Coded Allergies: Sulfa (Sulfonamide Antibiotics) (UNKNOWN 02/12/16) Home Med List: Folic Acid 1 MG TABLET 1 TAB PO DAILY SUPPLIMENT (Reported) Methotrexate 2.5 MG TABLET 6 TAB PO QW ARTHRITIS (Reported) Oxycodone HCl/Acetaminophen (Percocet 5-325 MG Tablet) 5 MG-325 MG TABLET 1 TAB PO Q4-6 PRN PAIN Prednisone 5 MG TABLET 1 TAB PO DAILY UNKNOWN (Reported) Review of Systems Review of Systems Constitutional: Reports: see HPI. Past History Travel History Traveled to [place] past 21 day No Medical History Blood Transfusion Hx: No Neurological: NONE EENT: NONE Cardiovascular: NONE Respiratory: COPD Gastrointestinal: NONE Hepatic: ? LIVER CA Renal: NONE Musculoskeletal: rheumatoid arthritis Psychiatric: NONE Endocrine: NONE Blood Disorders: NONE Cancer(s): liver cancer FELT FINISHER/Reproductive: NONE Surgical History Surgical History: non-contributory Family History Relations & Conditions If Any: FATHER BROTHER Relation not specified for: FH: stomach cancer Psychosocial History Where Do You Live? Home Who Do You Live With? spouse Services at Home: None Smoking Status: Former Smoker (quit 9 months back) Exam & Diagnostic Data Last 24 Hrs of Vital Signs/I&O Vital Signs Date Time Temp Pulse Resp B/P Pulse O2 O2 Flow FiO2 Ox Delivery Rate 01/20 1614 100 96 01/20 1451 93 BIPAP 60% 01/20 1315 98.6 108 22 98/61 90 BIPAP 60% 01/20 1228 110 92 01/20 1143 108 30 118/68 95 BIPAP 60% 01/20 1133 110 94 01/20 1118 92 Nasal 4.0L Cannula 01/20 1116 105 92 01/20 1112 103 30 106/57 97 BIPAP 100% 01/20 1037 95.9 108 30 112/58 95 BIPAP 100% 01/20 1000 114 34 98/57 91 BIPAP 100% 01/20 0937 156 87 01/20 0924 122 20 90 BIPAP 100% 01/20 0923 95.1 151 26 108/61 01/20 0909 77 Room Air 01/20 0903 95.1 151 26 108/61 77 Room Air Intake & Output 01/20 1600 01/20 0800 01/20 0000 Intake Total 3090 Output Total Balance 3090 Intake, IV 2850 Intake, Oral 240 Patient 130 lb Weight Last 48 Hrs of Labs/Jordy: Laboratory Tests 01/20/17 1515: Lactic Acid 3.8 H, Ammonia 14, Troponin I 0.34 *H 01/20/17 1142: Lactic Acid 6.7 H, PT 16.8 H, INR 1.61 H, D-Dimer 1563 H 01/20/17 1139: Troponin I Cancelled 01/20/17 0955: Anion Gap 18 H, Estimated GFR 42 L, BUN/Creatinine Ratio 19.4, Glucose 91, Lactic Acid 10.4 H, Calcium 9.3, Magnesium 2.1, Total Bilirubin 2.3 H, AST 645 H, ALT 427 H, Alkaline Phosphatase 211 H, Troponin I 0.08, Qnb-C-Eqaqpsvpztc Pept 2370 H, Total Protein 4.9 L, Albumin 2.3 L, Globulin 2.6, Albumin/ Globulin Ratio 0.9 L, TSH 0.021 L, Free T4 0.63 L 01/20/17 0915: pH 7.35, pCO2 27 L, pO2 51 L, HCO3 15 L, ABG O2 Sat (Measured) 87.0 L, P-50 (Temp Corrected) YES, Carboxyhemoglobin 1.8, O2 Concentration % 100%, Temperature 95.1 L, Respiration Rate 26, O2 Delivery Method BIPAP, Vent Mode AC , Expiratory Pressure 6, Inspiratory Pressure 22, Phlebotomy Draw Site RIGHT BRACHIAL 01/20/17 0856: CBC w Diff MAN DIFF ORDERED, RBC 5.04, MCV 101.9 H, MCH 33.6 H, RDW 19.5 H, MPV 8.9, Segmented Neutrophils 71, Band Neutrophils 20 H, Lymphocytes 4 L, Monocytes 5, Platelet Estimate ADEQUATE, Anisocytosis 1+, Macrocytic Cells FEW, PUBS MCHC 33.0 Assessment/Plan Impression/Plan: Physical Exam General Appearance Oriented X3, Cooperative, Moderate Distress Skin No Breakdown HEENT Atraumatic, PERRLA, EOMI Neck No JVD, No thryomegaly Lymphatic Axillary nl, Cervical nl Cardiovascular Normal S1, Normal S2 Lungs bilateral decreased airway entry and diminished breath sounds Abdomen Soft, No Tenderness Neurological Strength at 5/5 X4 Ext Extremities No Cyanosis, No Edema IMPRESSION: 1. Redemonstrated intrathoracic findings suspicious for malignancy, including a subcarinal mass likely extending into the right hilum, as well as additional mediastinal lymphadenopathy. 2. In comparison to 01/09/2017, there is increasing airspace opacification throughout the right lower and middle lobes. Redemonstrated narrowing of the central airways in the right middle and lower lobe raise the possibility that this opacification could represent postobstructive inflammation/pneumonia. Underlying mass and/or regions of atelectasis are difficult to exclude in the absence of intravenous contrast. 3. Multiple scattered subcentimeter nodules bilaterally, similar to 01/09/2017. Extensive upper lobe predominant emphysema. 4. Redemonstrated, loculated appearing lateral right basilar pleural effusion. 5. Probable hepatic mass, not adequately assessed in the absence of intravenous contrast. 6. Redemonstrated superior L1 compression deformity, similar to prior. IMPRESSION 1. Acute hypoxic respiratory failure most likely secondary to obstructive pneumonia(after failure to the outpatient therapy with levofloxacin). 2. Metastatic disease with extensive liver mets now with sig met acidosis due to hepatic dysfunction 3. Sig PNa Post obstructive with Pleural mets 4. Altered lfts due to prob liver mets 5 History of rheumatoid arthritis and hence immunosuppresed 7. Wide complex tachycardia status post 1 dose of 6 mg IV ADENOSINE IN ER 7. lactic acidosis 8. MASHA rosario-prerenal REC DIscussed with Patient and discussed with step daughter PTs wishes are to be DNR and DNI with no ICU transfer (NO mech vent, pressors or dialysis) Plan is to do max conservative measures on the floor IF he fails will transition to comfort IF he improves will get a liver bx ABX BIPAP PICC IV fluids, Broad spectrum abx for now ULtrasound lower ext Echo to ass rv function and if his rv is dilated and in strain will start anticoag Prog very poor Pt critically ill tts 50 mins Consult Acknowledgment - Thank you for your consult request.
[2017-01-20 17:50] VITALS: BP 105/70
--- NOTE | 2017-01-20 17:51 | ECHOCARDIOGRAM REPORT ---
JULIET DAVIDSON Age: 76 : 1940 Gender: M Exam Date: 01/20/2017 16:46 Exam Location: [facility] Ht (in): 65 Wt (lb): 130 BSA: 1.65 BP: 98 / 61 Ordering Physician: SEMAJ GO MD Referring Physician: SEMAJ GO MD Technologist: Claire Peralta RDCS Room Number: 178 Indications: SHORTNESS OF BREATH Rhythm: Sinus Technical Quality: Technically difficult study FINDINGS Left Ventricle Normal left ventricular size and wall thickness. Normal left ventricular ejection fraction visually estimated at >65 %. No obvious regional wall motion abnormalities. Abnormal relaxation filling pattern of the left ventricle for age (stage 1 diastolic dysfunction). Right Ventricle Right ventricle not well visualized, grossly normal. Right Atrium Right atrium not well visualized, grossly normal. Left Atrium Normal left atrial size. Mitral Valve Mitral valve not well visualized, grossly normal. No mitral regurgitation. Aortic Valve Aortic valve not well visualized, grossly normal. No aortic stenosis. Mild aortic regurgitation. Tricuspid Valve Tricuspid valve not well visualized, grossly normal. No tricuspid regurgitation. Unable to estimate the right ventricular systolic pressure. Pulmonic Valve Pulmonic valve not well visualized. Pericardium No pericardial or pleural effusion. Great Vessels Normal size aortic root. CONCLUSIONS This is a technically difficult study and is limited. Normal left ventricular size and wall thickness. Normal left ventricular ejection fraction visually estimated at >65 Abnormal relaxation filling pattern of the left ventricle for age (stage 1 diastolic dysfunction). Normal left atrial size. Valvular structures are not well visualized. Mild aortic regurgitation is seen. Joe Mcgrath M.D. (Electronically Signed) Final Date: 20 January 2017 17:51 MEASUREMENTS (Male / Female) Normal Values 2D ECHO LV Diastolic Diameter PLAX 3.1 cm 4.2 - 5.9 / 3.9 - 5.3 cm LV Systolic Diameter PLAX 2.1 cm 2.1 - 4.0 cm LV Fractional Shortening PLAX 32.3 % 25 - 46 % LV Ejection Fraction 2D Teich 62.0 % IVS Diastolic Thickness 0.9 cm LVPW Diastolic Thickness 1.2 cm LV Relative Wall Thickness 0.7 RV Internal Dim ED PLAX 2.6 cm 1.9 - 3.8 cm LVOT Diameter 1.9 cm Aortic Root Diameter 3.2 cm LA Systolic Diameter LX 2.6 cm 3.0 - 4.0 / 2.7 - 3.8 cm LA Volume 26.0 cm 18 - 58 / 22 - 52 cm DOPPLER AV Peak Velocity 192.0 cm/s AV Peak Gradient 14.7 mmHg AV Mean Velocity 138.0 cm/s AV Mean Gradient 9.0 mmHg AV Velocity Time Integral 30.7 cm LVOT Peak Velocity 105.0 cm/s LVOT Peak Gradient 4.4 mmHg LVOT Mean Velocity 63.5 cm/s LVOT Mean Gradient 2.0 mmHg LVOT Velocity Time Integral 14.7 cm LVOT Stroke Volume 41.7 cm AV Area Cont Eq vti 1.4 cm AV Area Cont Eq pk 1.6 cm MV Peak Velocity 98.2 cm/s MV Peak Gradient 3.9 mmHg MV Mean Velocity 57.4 cm/s MV Mean Gradient 2.0 mmHg Mitral E Point Velocity 49.9 cm/s Mitral A Point Velocity 89.3 cm/s Mitral E to A Ratio 0.6 MV PHT Velocity 91.1 cm/s MV Deceleration [place] 363.0 cm/s MV Pressure Half Time 75.3 ms MV Area PHT 2.9 cm MV Deceleration Time 206.0 ms LV E' Lateral Velocity 6.2 cm/s Mitral E to LV E' Lateral Ratio 8.0 LV E' Septal Velocity 5.0 cm/s Mitral E to LV E' Septal Ratio 10.0
--- NOTE | 2017-01-20 19:43 | Cons- Cardiology ---
General Information and HPI Consulting Request Date of Consult: 01/20/17 Requested By: ANALISA HAQUE MD Reason for Consult: Shortness of breath and positive troponin I. Source of Information: patient, family, old records Exam Limitations: poor historian History of Present Illness: Mr. Roel Mar is a 76-year-old male with a history of hypertension, rheumatoid arthritis on methotrexate and prednisone, former heavy smoker, and recently diagnosed metastatic lung carcinoma who presented to the ED with progressive shortness of breath and altered mental status following a completed 10 day outpatient course of antimicrobial therapy without improvement and a suspicion that the patient might have a pulmonary embolism with an elevated d- dimer, troponin I, etc. without any associated acute electrocardiographic changes other than earlier marked sinus tachycardia with transient slowing following the administration of adenosine. Allergies/Medications Allergies: Coded Allergies: Sulfa (Sulfonamide Antibiotics) (UNKNOWN 02/12/16) Home Med List: Folic Acid 1 MG TABLET 1 TAB PO DAILY SUPPLIMENT (Reported) Methotrexate 2.5 MG TABLET 6 TAB PO QW ARTHRITIS (Reported) Oxycodone HCl/Acetaminophen (Percocet 5-325 MG Tablet) 5 MG-325 MG TABLET 1 TAB PO Q4-6 PRN PAIN Prednisone 5 MG TABLET 1 TAB PO DAILY UNKNOWN (Reported) Review of Systems Review of Systems: Unobtainable. Past History Travel History Traveled to [place] past 21 day No Medical History Blood Transfusion Hx: No Neurological: NONE EENT: NONE Cardiovascular: NONE Respiratory: COPD Gastrointestinal: NONE Hepatic: ? LIVER CA Renal: NONE Musculoskeletal: rheumatoid arthritis Psychiatric: NONE Endocrine: NONE Blood Disorders: NONE Cancer(s): liver cancer SLUBBER TENDER/Reproductive: NONE Surgical History Surgical History: non-contributory Family History Relations & Conditions If Any: FATHER BROTHER Relation not specified for: FH: stomach cancer Psychosocial History Where Do You Live? Home Who Do You Live With? spouse Services at Home: None Smoking Status: Former Smoker (quit 9 months back) Exam & Diagnostic Data Vital Signs and I&O Vital Signs Date Time Temp Pulse Resp B/P Pulse O2 O2 Flow FiO2 Ox Delivery Rate 01/20 1750 98.6 104 20 105/70 91 01/20 1614 100 96 01/20 1451 93 BIPAP 60% 01/20 1315 98.6 108 22 98/61 90 BIPAP 60% 01/20 1228 110 92 01/20 1143 108 30 118/68 95 BIPAP 60% 01/20 1133 110 94 01/20 1118 92 Nasal 4.0L Cannula 01/20 1116 105 92 01/20 1112 103 30 106/57 97 BIPAP 100% 01/20 1037 95.9 108 30 112/58 95 BIPAP 100% 01/20 1000 114 34 98/57 91 BIPAP 100% 01/20 0937 156 87 01/20 0924 122 20 90 BIPAP 100% 01/20 0923 95.1 151 26 108/61 01/20 0909 77 Room Air 01/20 0903 95.1 151 26 108/61 77 Room Air Intake & Output 01/20 1600 01/20 0800 01/20 0000 01/19 1600 01/19 0800 01/19 0000 Intake Total 3090 Output Total Balance 3090 Intake, IV 2850 Intake, Oral 240 Patient 130 lb Weight Physical Exam: Chronically ill-appearing elderly male in mild respiratory distress with oxygen in place. Vital signs: See above. HEENT: Normocephalic, atraumatic, EOMI, dry mucous membranes. Neck: No JVD, no bruits. Lungs: Bilateral wheezing and rhonchi. Heart: S1, S2 with no murmur, gallop, or rub appreciated. PMI fifth ICS at MCL. Slight abdomen: Soft, nontender, positive bowel sounds. Extremities: 1+ bilateral lower extremity edema. Labs/Jordy Results: Laboratory Tests 01/20 01/20 01/20 01/20 1515 1142 1139 0955 Chemistry Sodium (137 - 145 mmol/L) 143 Potassium (3.5 - 5.1 mmol/L) 4.9 Chloride (98 - 107 mmol/L) 105 Carbon Dioxide (22 - 30 mmol/L) 21 L Anion Gap (5 - 16) 18 H BUN (9 - 20 mg/dL) 31 H Creatinine (0.7 - 1.2 mg/dL) 1.6 H Estimated GFR (>60 ml/min) 42 L BUN/Creatinine Ratio (7 - 25 %) 19.4 Glucose (65 - 99 mg/dL) 91 Lactic Acid (0.7 - 2.1 mmol/L) 3.8 H 6.7 H 10.4 H Calcium (8.4 - 10.2 mg/dL) 9.3 Magnesium (1.6 - 2.3 mg/dL) 2.1 Total Bilirubin (0.2 - 1.3 mg/dL) 2.3 H AST (17 - 59 U/L) 645 H ALT (21 - 72 U/L) 427 H Alkaline Phosphatase (< 127 U/L) 211 H Ammonia (9 - 30 umol/L) 14 Troponin I (<0.11 ng/ml) 0.34 *H Cancelled 0.08 [id number] Pept (<125 pg/mL) 2370 H Total Protein (6.3 - 8.2 g/dL) 4.9 L Albumin (3.5 - 5.0 g/dL) 2.3 L Globulin (1.9 - 4.2 gm/dL) 2.6 Albumin/Globulin Ratio (1.1 - 2.2 %) 0.9 L TSH (0.270 - 4.200 uIU/mL) 0.021 L Free T4 (0.78 - 2.44 ng/dL) 0.63 L Coagulation PT (9.4 - 12.5 SEC) 16.8 H INR (0.90 - 1.17) 1.61 H D-Dimer (70 - 232 ng/ml) 1563 H 01/20 01/20 0915 0856 Blood Gas pH (7.35 - 7.45 PH) 7.35 pCO2 (35 - 45 TORR) 27 L pO2 (80 - 100 TORR) 51 L HCO3 (21 - 28 MEQ/L) 15 L ABG O2 Sat (Measured) (>96.0 %) 87.0 L P-50 (Temp Corrected) YES Carboxyhemoglobin (1.5 - 5.0 %) 1.8 O2 Concentration % 100% Temperature (97.0 - 100.0 FARH) 95.1 L Respiration Rate (BPM) 26 O2 Delivery Method BIPAP Vent Mode AC Expiratory Pressure (CM H2O P) 6 Inspiratory Pressure (CM H2O P) 22 Hematology CBC w Diff MAN DIFF ORDERED WBC (4.8 - 10.8 /CUMM) 9.1 RBC (4.70 - 6.10 /CUMM) 5.04 Hgb (14.0 - 18.0 G/DL) 17.0 Hct (42 - 52 %) 51.4 MCV (80.0 - 94.0 FL) 101.9 H MCH (27.0 - 31.0 PG) 33.6 H RDW (11.5 - 14.5 %) 19.5 H Plt Count (130 - 400 /CUMM) 192 MPV (7.4 - 10.4 FL) 8.9 Segmented Neutrophils (42.2 - 75.2 %) 71 Band Neutrophils (0.0 - 5.0 %) 20 H Lymphocytes (20.5 - 51.1 %) 4 L Monocytes (1.7 - 9.3 %) 5 Platelet Estimate (ADEQUATE) ADEQUATE Anisocytosis 1+ Macrocytic Cells FEW PUBS MCHC (33.0 - 37.0 G/DL) 33.0 Miscellaneous Phlebotomy Draw Site RIGHT BRACHIAL Diagnostic Data EKG Results (01/20/2017) mild sinus tachycardia and incomplete right bundle branch block. Much slower rate when compared to earlier tracing from earlier today. CXR Results (01/20/2017) The tip of the right-sided PICC line is in the distal SVC. No improvement in the right lower lobe consolidation, loculated right pleural effusion, and reticular opacities the right upper lobe. Other Results Echocardiogram (01/20/2017) This is a technically difficult study and is limited. Normal left ventricular size and wall thickness. Normal left ventricular ejection fraction visually estimated at >65%. Abnormal relaxation filling pattern of the left ventricle for age (stage 1 diastolic dysfunction). Normal left atrial size. Valvular structures are not well visualized. Mild aortic regurgitation is seen. Chest CT (01/20/2017) 1. Redemonstrated intrathoracic findings suspicious for malignancy, including a subcarinal mass likely extending into the right hilum, as well as additional mediastinal lymphadenopathy. 2. In comparison to 01/09/2017, there is increasing airspace opacification throughout the right lower and middle lobes. Redemonstrated narrowing of the central airways in the right middle and lower lobe raise the possibility that this opacification could represent postobstructive inflammation/pneumonia. Underlying mass and/or regions of atelectasis are difficult to exclude in the absence of intravenous contrast. 3. Multiple scattered subcentimeter nodules bilaterally, similar to 01/09/2017. Extensive upper lobe predominant emphysema. 4. Redemonstrated, loculated appearing lateral right basilar pleural effusion. 5. Probable hepatic mass, not adequately assessed in the absence of intravenous contrast. 6. Redemonstrated superior L1 compression deformity, similar to prior. Assessment/Plan Assessment/Plan Elderly male with recently diagnosed metastatic lung carcinoma who presented with worsening shortness of breath and altered mental status after a 10 day course of antimicrobial therapy that did not improve the situation and concerns that the patient might have pulmonary embolism based on his presentation, d-dimer elevation, troponin I elevation, earlier marked sinus tachycardia without other acute electrocardiographic changes, etc. with a technically poor echocardiographic study without good visualization of the right ventricle and an inability to calculate an estimated PA systolic pressure, etc. Clearly, do not want to place Mr. Mar on anticoagulation therapy unless there is a high probability for pulmonary embolism and as such would recommend a ventilation perfusion scan. Suspect that the troponin I elevation is not secondary to an acute coronary syndrome, but rather secondary to demand ischemia (critical illness, tachycardia , etc.). Follow-up on pulmonary recommendations regarding management of pneumonia. Follow-up on oncology recommendations regarding management of metastatic lung carcinoma. Consult Acknowledgment - Thank you for your consult request.
[2017-01-21 00:04] VITALS: BP 140/70
[2017-01-21 00:22] LABS: PTT 62 SEC (25-37)
--- NOTE | 2017-01-21 05:02 | PN- Housestaff ---
Subjective Follow-up For: Obstructive PNA. ?SVT Sinus tachycardia Suspicious Metastsic Lung cancer(no tissue biopsy performed) Gram positive Bacteremia Subjective: The patient remained on high flow oxygen the whole night. Remained afebrile. He has been tolerating high flow oxygen well. Feels better than yesterday but still tired("doc I am a little decent today"). Review of Systems Constitutional: Reports: see HPI. Objective Last 24 Hrs of Vital Signs/I&O Vital Signs Date Time Temp Pulse Resp B/P Pulse O2 O2 Flow FiO2 Ox Delivery Rate 01/21 0058 92 Nasal 65% Cannula 01/21 0004 97.5 102 20 140/70 91 Nasal Cannula 01/21 0000 93 60% 01/20 2207 92 Nasal 60% Cannula 01/20 2023 91 Nasal 60% Cannula 01/20 1750 98.6 104 20 105/70 91 01/20 1630 93 Nasal 60% Cannula 01/20 1614 100 96 01/20 1451 93 BIPAP 60% 01/20 1315 98.6 108 22 98/61 90 BIPAP 60% 01/20 1228 110 92 01/20 1143 108 30 118/68 95 BIPAP 60% 01/20 1133 110 94 01/20 1118 92 Nasal 4.0L Cannula 01/20 1116 105 92 01/20 1112 103 30 106/57 97 BIPAP 100% 01/20 1037 95.9 108 30 112/58 95 BIPAP 100% 01/20 1000 114 34 98/57 91 BIPAP 100% 01/20 0937 156 87 01/20 0924 122 20 90 BIPAP 100% 01/20 0923 95.1 151 26 108/61 01/20 0909 77 Room Air 01/20 0903 95.1 151 26 108/61 77 Room Air Intake & Output 01/21 0800 01/21 0000 01/20 1600 Intake Total 821.2 1136.2 3090 Output Total 300 Balance 521.2 1136.2 3090 Intake, IV 771.2 896.2 2850 Intake, Oral 50 240 240 Output, Urine 300 Patient 130 lb Weight Physical Exam General Appearance: Alert, Oriented X3, Cooperative Skin: No Rashes, No Breakdown HEENT: Atraumatic, PERRLA Neck: Supple, No JVD Lymphatic: Axillary nl, Cervical nl Cardiovascular: Normal S1, Normal S2 Lungs: bilateral decreased airway entry diminished breath sounds bilaterally Abdomen: Soft, No Tenderness, Hepatomegaly Neurological: Normal Gait, Normal Speech Assessment/Plan Assessment: This is a 76-year-old male with a past medical history of rheumatoid arthritis on methotrexate therapy, recently diagnosis metastatic lesion to the liver 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 The patient is being treated in the hospital for obstructive pneumonia after failing an outpatient therapy with levofloxacin. Assessment 1. Acute hypoxic respiratory failure likely secondary to pneumonia 2. Lung cancer carcinoma(no tissue biopsy as refused by the patient) 3. Metastatic lesion to the liver 4. Questionable supraventricular tachycardia at the time of admission but now in sinus tachycardia 5. History of rheumatoid arthritis on chronic prednisone and methotrexate therapy 6. Acute kidney injury likely prerenal as ischemia 7. Elevated troponin secondary to type II ischemia 8.Gram positive Cocci in chain Bacteremia Plan We will continue telemetry monitoring Last night labs and events noted. I offered the patient further testing for pulmonary embolism such as VQ scan which he refused and the next 24 hours 1 daily status is better In the meanwhile considering that the patient does not have any right heart strain on transthoracic echocardiogram and his bilateral lower extremity Dopplers have been negative for any clots - would hold the anticoagulation therapy with heparin Last night telemetry events showed beats of rapid sinus tachycardia to 140s to 150s. We will consider starting him on a rate control medication CARDIZEM 30 MG TID (after discussion with the cert pharmacy tech). Continue with IV fluids Oncology staff, Dr. Mclain was contacted yesterday and he is aware of the patient's admission no further input from oncology at this point as the patient does not want a biopsy or further testing for the suspicion of cancer Appreciate pulmonology and cardiology input. Will await Sensitivities for Blood cultures and repeat BC times 2. Dc Ceftazidime.C/w Vancomycin Patient wishes to be treated conservatively and does not point any heroic measures. DNR/DNI Subcutaneous heparin for DVT prophylaxis now Problem List: 1. Elevated troponin 2. Acute prerenal azotemia 3. Metastasis Pain Ratin Pain Location: joints Pain Goal: Pain 4 or less Pain Plan: Tyelnol as needed Tomorrow's Labs & Rationales: CBC BEP
[2017-01-21 05:13] LABS: MEAN CORPUSCULAR HGB 33.7 PG (27.0-31.0); MEAN CORPUSCULAR HGB CONC 33.7 G/DL (33.0-37.0); MEAN CORPUSCULAR VOLUME 100.2 FL (80.0-94.0); MEAN PLATELET VOLUME 9.6 FL (7.4-10.4); PLATELET COUNT 163 /CUMM (130-400); RBC DISTRIBUTION WIDTH 18.8 % (11.5-14.5); RED BLOOD CELL CT 3.91 /CUMM (4.70-6.10)
[2017-01-21 05:47] LABS: HEMATOCRIT 39.1 % (42-52); WHITE BLOOD CELL COUNT 14.2 /CUMM (4.8-10.8)
[2017-01-21 08:39] VITALS: BP 128/92
--- NOTE | 2017-01-21 10:25 | PN- Pulmonary ---
Subjective HPI/Critical Care Issues: The patient remained on high flow oxygen the whole night. Remained afebrile. He has been tolerating high flow oxygen well. Feels better than yesterday but still tired("doc I am a little decent today"). Review of Systems Constitutional: Reports: see HPI. Objective Current Medications: Current Medications Sig/Walter Start time Last Medication Dose Route Stop Time Status Admin Acetaminophen 650 MG Q6P PRN 01/20 1115 AC PO Albuterol Sulfate 3 ML ONCE ONE 01/20 1115 DC 01/20 INH 01/20 1116 1116 Azithromycin 500 MG DAILY 01/21 1000 CAN Dextrose/Water 250 ML IV Azithromycin 500 MG ONCE ONE 01/20 0945 DC 01/20 Dextrose/Water 250 ML IV 01/20 1044 1035 Ceftazidime 1,000 MG Q12 01/20 2200 DC 01/21 IV 0931 Ceftriaxone Sodium 1,000 MG DAILY 01/21 1000 CAN IV Enoxaparin Sodium 40 MG DAILY 01/21 1000 DC SC Enoxaparin Sodium 40 MG DAILY@1500 01/20 1525 DC SC Heparin Sodium 5,000 UNIT Q8 01/21 1400 AC (Porcine) SC Heparin Sodium/ 25,000 UNIT Q24H 01/20 1600 DC 01/20 Dextrose IV 1724 Dextrose/Water 500 ML Hydromorphone HCl 0.5 MG Q4P PRN 01/20 1115 AC IV Ipratropium [place] 2.5 ML ONCE ONE 01/20 1115 DC 01/20 INH 01/20 1116 1116 Oxycodone/ 1 TAB Q6P PRN 01/20 1115 AC Acetaminophen PO Sodium Chloride 1,000 ML Q13H 01/20 2200 AC 01/21 IV 0931 Sodium Chloride 1,000 ML ONCE ONE 01/20 1145 DC 01/20 IV 01/20 2144 1232 Sodium Chloride 1,000 ML BOLUS ONE 01/20 1015 DC 01/20 IV 01/20 1114 1035 Vancomycin HCl 1,000 MG DAILY 01/20 1238 AC 01/21 Dextrose/Water 250 ML IV 0930 Laboratory Tests 01/21 01/21 01/20 01/20 0410 0410 2343 2115 Chemistry Sodium (137 - 145 mmol/L) 140 Potassium (3.5 - 5.1 mmol/L) 4.2 Chloride (98 - 107 mmol/L) 106 Carbon Dioxide (22 - 30 mmol/L) 25 Anion Gap (5 - 16) 9 BUN (9 - 20 mg/dL) 40 H Creatinine (0.7 - 1.2 mg/dL) 1.7 H Estimated GFR (>60 ml/min) 39 L BUN/Creatinine Ratio (7 - 25 %) 23.5 Total Bilirubin (0.2 - 1.3 mg/dL) 1.4 H Direct Bilirubin (< 0.4 mg/dL) 1.2 H AST (17 - 59 U/L) 706 H ALT (21 - 72 U/L) 603 H Alkaline Phosphatase (< 127 U/L) 238 H Troponin I (<0.11 ng/ml) 0.28 *H 0.40 *H Total Protein (6.3 - 8.2 g/dL) 4.2 L Albumin (3.5 - 5.0 g/dL) 1.9 L Coagulation APTT (25 - 37 SEC) 62 H Hematology CBC w Diff MAN DIFF ORDERED WBC (4.8 - 10.8 /CUMM) 14.2 H RBC (4.70 - 6.10 /CUMM) 3.91 L Hgb (14.0 - 18.0 G/DL) 13.2 L Hct (42 - 52 %) 39.1 L MCV (80.0 - 94.0 FL) 100.2 H MCH (27.0 - 31.0 PG) 33.7 H RDW (11.5 - 14.5 %) 18.8 H Plt Count (130 - 400 /CUMM) 163 MPV (7.4 - 10.4 FL) 9.6 Segmented Neutrophils (42.2 - 75.2 %) 54 Band Neutrophils (0.0 - 5.0 %) 26 H Lymphocytes (20.5 - 51.1 %) 12 L Monocytes (1.7 - 9.3 %) 6 Metamyelocytes (0.0 - 1.0 %) 2 H Nucleated RBCs (0.0 - 0.0 /100WBC) 3 H Platelet Estimate (ADEQUATE) VERIFIED BY SMEAR Poikilocytosis 1+ Anisocytosis 1+ Macrocytic Cells 1+ PUBS MCHC (33.0 - 37.0 G/DL) 33.7 01/20 01/20 01/20 01/20 1515 1142 1139 0955 Chemistry Sodium (137 - 145 mmol/L) 143 Potassium (3.5 - 5.1 mmol/L) 4.9 Chloride (98 - 107 mmol/L) 105 Carbon Dioxide (22 - 30 mmol/L) 21 L Anion Gap (5 - 16) 18 H BUN (9 - 20 mg/dL) 31 H Creatinine (0.7 - 1.2 mg/dL) 1.6 H Estimated GFR (>60 ml/min) 42 L BUN/Creatinine Ratio (7 - 25 %) 19.4 Glucose (65 - 99 mg/dL) 91 Lactic Acid (0.7 - 2.1 mmol/L) 3.8 H 6.7 H 10.4 H Calcium (8.4 - 10.2 mg/dL) 9.3 Magnesium (1.6 - 2.3 mg/dL) 2.1 Total Bilirubin (0.2 - 1.3 mg/dL) 2.3 H AST (17 - 59 U/L) 645 H ALT (21 - 72 U/L) 427 H Alkaline Phosphatase (< 127 U/L) 211 H Ammonia (9 - 30 umol/L) 14 Troponin I (<0.11 ng/ml) 0.34 *H Cancelled 0.08 [id number]-Cnrngaqqzhp Pept (<125 pg/mL) 2370 H Total Protein (6.3 - 8.2 g/dL) 4.9 L Albumin (3.5 - 5.0 g/dL) 2.3 L Globulin (1.9 - 4.2 gm/dL) 2.6 Albumin/Globulin Ratio (1.1 - 2.2 %) 0.9 L TSH (0.270 - 4.200 uIU/mL) 0.021 L Free T4 (0.78 - 2.44 ng/dL) 0.63 L Coagulation PT (9.4 - 12.5 SEC) 16.8 H INR (0.90 - 1.17) 1.61 H D-Dimer (70 - 232 ng/ml) 1563 H 01/20 01/20 0915 0856 Blood Gas pH (7.35 - 7.45 PH) 7.35 pCO2 (35 - 45 TORR) 27 L pO2 (80 - 100 TORR) 51 L HCO3 (21 - 28 MEQ/L) 15 L ABG O2 Sat (Measured) (>96.0 %) 87.0 L P-50 (Temp Corrected) YES Carboxyhemoglobin (1.5 - 5.0 %) 1.8 O2 Concentration % 100% Temperature (97.0 - 100.0 FARH) 95.1 L Respiration Rate (BPM) 26 O2 Delivery Method BIPAP Vent Mode AC Expiratory Pressure (CM H2O P) 6 Inspiratory Pressure (CM H2O P) 22 Hematology CBC w Diff MAN DIFF ORDERED WBC (4.8 - 10.8 /CUMM) 9.1 RBC (4.70 - 6.10 /CUMM) 5.04 Hgb (14.0 - 18.0 G/DL) 17.0 Hct (42 - 52 %) 51.4 MCV (80.0 - 94.0 FL) 101.9 H MCH (27.0 - 31.0 PG) 33.6 H RDW (11.5 - 14.5 %) 19.5 H Plt Count (130 - 400 /CUMM) 192 MPV (7.4 - 10.4 FL) 8.9 Segmented Neutrophils (42.2 - 75.2 %) 71 Band Neutrophils (0.0 - 5.0 %) 20 H Lymphocytes (20.5 - 51.1 %) 4 L Monocytes (1.7 - 9.3 %) 5 Platelet Estimate (ADEQUATE) ADEQUATE Anisocytosis 1+ Macrocytic Cells FEW PUBS MCHC (33.0 - 37.0 G/DL) 33.0 Miscellaneous Phlebotomy Draw Site RIGHT BRACHIAL Microbiology Date/Time Procedure - Status Source Growth 01/21 0900 Blood Culture - RECD BLOOD 01/21 0848 Blood Culture - RECD BLOOD 01/20 1007 Blood Culture - RES BLOOD GRAM POSITIVE COCCI 01/20 0955 Blood Culture - RES BLOOD GRAM POSITIVE COCCI Vital Signs & I&O Last 24 Hrs of Vitals and I&O: Vital Signs Date Time Temp Pulse Resp B/P Pulse O2 O2 Flow FiO2 Ox Delivery Rate 01/21 0932 92 Nasal 65% Cannula 01/21 0839 97.5 102 22 128/92 92 Nasal Cannula 01/21 0058 92 Nasal 65% Cannula 01/21 0004 97.5 102 20 140/70 91 Nasal Cannula 01/21 0000 93 60% 01/20 2207 92 Nasal 60% Cannula 01/20 2023 91 Nasal 60% Cannula 01/20 1750 98.6 104 20 105/70 91 01/20 1630 93 Nasal 60% Cannula 01/20 1614 100 96 02/21 1451 93 BIPAP 60% 01/20 1315 98.6 108 22 98/61 90 BIPAP 60% 01/20 1228 110 92 01/20 1143 108 30 118/68 95 BIPAP 60% 01/20 1133 110 94 01/20 1118 92 Nasal 4.0L Cannula 01/20 1116 105 92 01/20 1112 103 30 106/57 97 BIPAP 100% 01/20 1037 95.9 108 30 112/58 95 BIPAP 100% Intake & Output 01/21 1600 01/21 0800 01/21 0000 Intake Total 821.2 1136.2 Output Total 300 Balance 521.2 1136.2 Intake, IV 771.2 896.2 Intake, Oral 50 240 Output, Urine 300 Laboratory Tests 01/21 01/21 01/20 01/20 0410 0410 2343 2115 Chemistry Sodium (137 - 145 mmol/L) 140 Potassium (3.5 - 5.1 mmol/L) 4.2 Chloride (98 - 107 mmol/L) 106 Carbon Dioxide (22 - 30 mmol/L) 25 Anion Gap (5 - 16) 9 BUN (9 - 20 mg/dL) 40 H Creatinine (0.7 - 1.2 mg/dL) 1.7 H Estimated GFR (>60 ml/min) 39 L BUN/Creatinine Ratio (7 - 25 %) 23.5 Total Bilirubin (0.2 - 1.3 mg/dL) 1.4 H Direct Bilirubin (< 0.4 mg/dL) 1.2 H AST (17 - 59 U/L) 706 H ALT (21 - 72 U/L) 603 H Alkaline Phosphatase (< 127 U/L) 238 H Troponin I (<0.11 ng/ml) 0.28 *H 0.40 *H Total Protein (6.3 - 8.2 g/dL) 4.2 L Albumin (3.5 - 5.0 g/dL) 1.9 L Coagulation APTT (25 - 37 SEC) 62 H Hematology CBC w Diff MAN DIFF ORDERED WBC (4.8 - 10.8 /CUMM) 14.2 H RBC (4.70 - 6.10 /CUMM) 3.91 L Hgb (14.0 - 18.0 G/DL) 13.2 L Hct (42 - 52 %) 39.1 L MCV (80.0 - 94.0 FL) 100.2 H MCH (27.0 - 31.0 PG) 33.7 H RDW (11.5 - 14.5 %) 18.8 H Plt Count (130 - 400 /CUMM) 163 MPV (7.4 - 10.4 FL) 9.6 Segmented Neutrophils (42.2 - 75.2 %) 54 Band Neutrophils (0.0 - 5.0 %) 26 H Lymphocytes (20.5 - 51.1 %) 12 L Monocytes (1.7 - 9.3 %) 6 Metamyelocytes (0.0 - 1.0 %) 2 H Nucleated RBCs (0.0 - 0.0 /100WBC) 3 H Platelet Estimate (ADEQUATE) VERIFIED BY SMEAR Poikilocytosis 1+ Anisocytosis 1+ Macrocytic Cells 1+ PUBS MCHC (33.0 - 37.0 G/DL) 33.7 01/20 01/20 01/20 01/20 1515 1142 1139 0955 Chemistry Sodium (137 - 145 mmol/L) 143 Potassium (3.5 - 5.1 mmol/L) 4.9 Chloride (98 - 107 mmol/L) 105 Carbon Dioxide (22 - 30 mmol/L) 21 L Anion Gap (5 - 16) 18 H BUN (9 - 20 mg/dL) 31 H Creatinine (0.7 - 1.2 mg/dL) 1.6 H Estimated GFR (>60 ml/min) 42 L BUN/Creatinine Ratio (7 - 25 %) 19.4 Glucose (65 - 99 mg/dL) 91 Lactic Acid (0.7 - 2.1 mmol/L) 3.8 H 6.7 H 10.4 H Calcium (8.4 - 10.2 mg/dL) 9.3 Magnesium (1.6 - 2.3 mg/dL) 2.1 Total Bilirubin (0.2 - 1.3 mg/dL) 2.3 H AST (17 - 59 U/L) 645 H ALT (21 - 72 U/L) 427 H Alkaline Phosphatase (< 127 U/L) 211 H Ammonia (9 - 30 umol/L) 14 Troponin I (<0.11 ng/ml) 0.34 *H Cancelled 0.08 Ufd-I-Ohlfvcnipxi Pept (<125 pg/mL) 2370 H Total Protein (6.3 - 8.2 g/dL) 4.9 L Albumin (3.5 - 5.0 g/dL) 2.3 L Globulin (1.9 - 4.2 gm/dL) 2.6 Albumin/Globulin Ratio (1.1 - 2.2 %) 0.9 L TSH (0.270 - 4.200 uIU/mL) 0.021 L Free T4 (0.78 - 2.44 ng/dL) 0.63 L Coagulation PT (9.4 - 12.5 SEC) 16.8 H INR (0.90 - 1.17) 1.61 H D-Dimer (70 - 232 ng/ml) 1563 H 01/20 01/20 0915 0856 Blood Gas pH (7.35 - 7.45 PH) 7.35 pCO2 (35 - 45 TORR) 27 L pO2 (80 - 100 TORR) 51 L HCO3 (21 - 28 MEQ/L) 15 L ABG O2 Sat (Measured) (>96.0 %) 87.0 L P-50 (Temp Corrected) YES Carboxyhemoglobin (1.5 - 5.0 %) 1.8 O2 Concentration % 100% Temperature (97.0 - 100.0 FARH) 95.1 L Respiration Rate (BPM) 26 O2 Delivery Method BIPAP Vent Mode AC Expiratory Pressure (CM H2O P) 6 Inspiratory Pressure (CM H2O P) 22 Hematology CBC w Diff MAN DIFF ORDERED WBC (4.8 - 10.8 /CUMM) 9.1 RBC (4.70 - 6.10 /CUMM) 5.04 Hgb (14.0 - 18.0 G/DL) 17.0 Hct (42 - 52 %) 51.4 MCV (80.0 - 94.0 FL) 101.9 H MCH (27.0 - 31.0 PG) 33.6 H RDW (11.5 - 14.5 %) 19.5 H Plt Count (130 - 400 /CUMM) 192 MPV (7.4 - 10.4 FL) 8.9 Segmented Neutrophils (42.2 - 75.2 %) 71 Band Neutrophils (0.0 - 5.0 %) 20 H Lymphocytes (20.5 - 51.1 %) 4 L Monocytes (1.7 - 9.3 %) 5 Platelet Estimate (ADEQUATE) ADEQUATE Anisocytosis 1+ Macrocytic Cells FEW PUBS MCHC (33.0 - 37.0 G/DL) 33.0 Miscellaneous Phlebotomy Draw Site RIGHT BRACHIAL Microbiology Date/Time Procedure - Status Source Growth 01/21 0900 Blood Culture - RECD BLOOD 01/21 0848 Blood Culture - RECD BLOOD 01/20 1007 Blood Culture - RES BLOOD GRAM POSITIVE COCCI 01/20 0955 Blood Culture - RES BLOOD GRAM POSITIVE COCCI Impression/Plan Impression/Plan Impression/Plan: Physical Exam General Appearance Oriented X3, Cooperative, Moderate Distress Skin No Breakdown HEENT Atraumatic, PERRLA, EOMI Neck No JVD, No thryomegaly Lymphatic Axillary nl, Cervical nl Cardiovascular Normal S1, Normal S2 Lungs bilateral decreased airway entry and diminished breath sounds Abdomen Soft, No Tenderness Neurological Strength at 5/5 X4 Ext Extremities No Cyanosis, No Edema IMPRESSION: 1. Redemonstrated intrathoracic findings suspicious for malignancy, including a subcarinal mass likely extending into the right hilum, as well as additional mediastinal lymphadenopathy. 2. In comparison to 01/09/2017, there is increasing airspace opacification throughout the right lower and middle lobes. Redemonstrated narrowing of the central airways in the right middle and lower lobe raise the possibility that this opacification could represent postobstructive inflammation/pneumonia. Underlying mass and/or regions of atelectasis are difficult to exclude in the absence of intravenous contrast. 3. Multiple scattered subcentimeter nodules bilaterally, similar to 01/09/2017. Extensive upper lobe predominant emphysema. 4. Redemonstrated, loculated appearing lateral right basilar pleural effusion. 5. Probable hepatic mass, not adequately assessed in the absence of intravenous contrast. 6. Redemonstrated superior L1 compression deformity, similar to prior. Blood culture positive for gram positive cocci IMPRESSION 1. Acute hypoxic respiratory failure most likely secondary to obstructive pneumonia(after failure to the outpatient therapy with levofloxacin). 2. Metastatic disease with extensive liver mets now with sig met acidosis due to hepatic dysfunction and sepsis 3. Sig PNa Post obstructive with Pleural mets 4. Altered lfts due to prob liver mets 5 History of rheumatoid arthritis and hence immunosuppresed 7. Wide complex tachycardia status post 1 dose of 6 mg IV ADENOSINE IN ER 7. lactic acidosis 8. MASHA likley-prerenal REC Cont ivf and change to d5 .45 ns at 75 cc ABX, to contiue, sputum culture cont high flow BIPAP only if worse Will need ultrasound guided biopsy of the liver if he gets better soon Check post void resuidue i Will follow Fannie lopez
--- NOTE | 2017-01-21 14:29 | PN- Att Addend ---
Attending Addendum Attending Brief Note Patient name flattened, on high flow oxygen, his pulse rate still a little elevated. Appreciate pulmonary and cardiology's input and recommendations the lab called earlier this morning stating that 2 blood cultures are growing gram- positive blood cultures will be repeated we'll continue the IV antibiotic therapy monitor the patient during the day if stable in morning and consider a liver biopsy for definite diagnosis of his problems Current Medications Sig/Walter Start time Last Medication Dose Route Stop Time Status Admin Acetaminophen 650 MG Q6P PRN 01/20 1115 AC PO Azithromycin 500 MG DAILY 01/21 1037 AC 01/21 Dextrose/Water 250 ML IV 1219 Ceftazidime 1,000 MG Q12 01/20 2200 DC 01/21 IV 0931 Ceftriaxone Sodium 1,000 MG DAILY 01/22 2000 AC IV Dextrose/Sodium 1,000 ML Q13H 01/21 1200 AC 01/21 Chloride IV 1219 Diltiazem HCl 30 MG Q6 01/21 1200 AC 01/21 PO 1252 Enoxaparin Sodium 40 MG DAILY@1500 01/20 1525 DC SC Heparin Sodium 5,000 UNIT Q8 01/21 1400 AC (Porcine) SC Heparin Sodium/ 25,000 UNIT Q24H 01/20 1600 DC 01/20 Dextrose IV 1724 Dextrose/Water 500 ML Hydromorphone HCl 0.5 MG Q4P PRN 01/20 1115 AC IV Methylprednisolone 40 MG DAILY 01/21 1036 AC IV Oxycodone/ 1 TAB Q6P PRN 01/20 1115 AC Acetaminophen PO Sodium Chloride 1,000 ML Q13H 01/20 2200 DC 01/21 IV 0931 Sodium Chloride 1,000 ML ONCE ONE 01/20 1145 DC 01/20 IV 01/20 2144 1232 Vancomycin HCl 1,000 MG DAILY 01/20 1238 DC 01/21 Dextrose/Water 250 ML IV 0930 Laboratory Tests 01/21/17 1010: Urinalysis MOD H, Urine Color YEL, Urine Clarity HAZY H, Urine pH 6.0, Ur Specific [place] 1.020, Urine Protein 30 H, Urine Ketones NEG, Urine Nitrite NEG, Urine Bilirubin NEG, Urine Urobilinogen 1.0, Ur Leukocyte Esterase NEG, Ur Microscopic SEDIMENT EXAMINED, Urine RBC 1-3, Urine WBC 1-3 H, Ur Epithelial Cells FEW, Granular Casts 1-3 H, Urine Hemoglobin SMALL H, Urine Glucose NEG 01/21/17 0410: Anion Gap 9, Estimated GFR 39 L, BUN/Creatinine Ratio 23.5 01/21/17 0410: Total Bilirubin 1.4 H, Direct Bilirubin 1.2 H, AST 706 H, ALT 603 H, Alkaline Phosphatase 238 H, Troponin I 0.28 *H, Total Protein 4.2 L, Albumin 1.9 L, CBC w Diff MAN DIFF ORDERED, RBC 3.91 L, MCV 100.2 H, MCH 33.7 H, RDW 18.8 H, MPV 9.6, Segmented Neutrophils 54, Band Neutrophils 26 H, Lymphocytes 12 L, Monocytes 6, Metamyelocytes 2 H, Nucleated RBCs 3 H, Platelet Estimate VERIFIED BY SMEAR, Poikilocytosis 1+, Anisocytosis 1+, Macrocytic Cells 1+, PUBS MCHC 33.7 01/20/17 2343: APTT 62 H 01/20/17 2115: Troponin I 0.40 *H 01/20/17 1515: Lactic Acid 3.8 H, Ammonia 14, Troponin I 0.34 *H 01/20/17 1142: Lactic Acid 6.7 H, PT 16.8 H, INR 1.61 H, D-Dimer 1563 H 01/20/17 1139: Troponin I Cancelled 01/20/17 0955: Anion Gap 18 H, Estimated GFR 42 L, BUN/Creatinine Ratio 19.4, Glucose 91, Lactic Acid 10.4 H, Calcium 9.3, Magnesium 2.1, Total Bilirubin 2.3 H, AST 645 H, ALT 427 H, Alkaline Phosphatase 211 H, Troponin I 0.08, Zuy-F-Zqfewrygrta Pept 2370 H, Total Protein 4.9 L, Albumin 2.3 L, Globulin 2.6, Albumin/ Globulin Ratio 0.9 L, TSH 0.021 L, Free T4 0.63 L 01/20/17 0915: pH 7.35, pCO2 27 L, pO2 51 L, HCO3 15 L, ABG O2 Sat (Measured) 87.0 L, P-50 (Temp Corrected) YES, Carboxyhemoglobin 1.8, O2 Concentration % 100%, Temperature 95.1 L, Respiration Rate 26, O2 Delivery Method BIPAP, Vent Mode AC , Expiratory Pressure 6, Inspiratory Pressure 22, Phlebotomy Draw Site RIGHT BRACHIAL 01/20/17 0856: CBC w Diff MAN DIFF ORDERED, RBC 5.04, MCV 101.9 H, MCH 33.6 H, RDW 19.5 H, MPV 8.9, Segmented Neutrophils 71, Band Neutrophils 20 H, Lymphocytes 4 L, Monocytes 5, Platelet Estimate ADEQUATE, Anisocytosis 1+, Macrocytic Cells FEW, PUBS MCHC 33.0 Microbiology Date/Time Procedure - Status Source Growth 01/21 114 Respiratory Culture - COLB LOWER RESP 01/21 114 Gram Stain - COLB LOWER RESP 01/21 09 Blood Culture - RECD BLOOD 01/21 0848 Blood Culture - RECD BLOOD Vital Signs Date Time Temp Pulse Resp B/P Pulse O2 O2 Flow FiO2 Ox Delivery Rate 01/21 1252 142 122/60 01/21 0932 92 Nasal 65% Cannula 01/21 0839 97.5 102 22 128/92 92 Nasal Cannula 01/21 0800 Nasal 65% Cannula 01/21 0058 92 Nasal 65% Cannula 01/21 0004 97.5 102 20 140/70 91 Nasal Cannula 01/21 0000 93 60% 01/20 2207 92 Nasal 60% Cannula 01/20 2023 91 Nasal 60% Cannula 01/20 1750 98.6 104 20 105/70 91 01/20 1630 93 Nasal 60% Cannula 01/20 1614 100 96 01/20 1451 93 BIPAP 60% Intake & Output 01/21 1600 01/21 0800 01/21 0000 Intake Total 1120 821.2 1136.2 Output Total 400 300 Balance 720 521.2 1136.2 Intake, IV 500 771.2 896.2 Intake, Oral 620 50 240 Output, Urine 400 300
--- NOTE | 2017-01-21 15:00 | Discharge Summary ---
Visit Information Visit Dates Admission Date: 01/20/17 Discharge Date: 01/26/17. Hospital Course Course Attending Physician: ANALISA HAQUE MD Primary Care Physician: SHABNAM BUTLER,ANALISA Hospital Course: This 76-year-old male with a past medical history of rheumatoid arthritis, presented to the [facility] emergency department with persistent shortness of breath and mild altered mental status with a history of new diagnosis of metastatic sent as mass found incidentally and the abdominal CAT scan done 2 weeks back. The patient initially presented patient showed acute hypoxic respiratory failure, with persistent wheezing and bilateral decreased airway entry. The patient also had persistent cough which was productive with white sputum. Denies any fever or chills Vitals at the time of admission shows: 108/61, pulse ox of 77 initially which improved to 94% on BiPAP currently on BiPAP at the setting off 22 x 6 and 28, afebrile afebrile temperature of 95.1 Labs at the time of admission shows lactic of 10.4, normal CBC and WBC but with a band neutrophils of 20, Labs chemistry shows a creatinine of 1.6 elevated BUNs, elevated transaminitis ABG shows normal pH 7.35/27/51 and a bicarbonate of 21 Chest x-ray shows Right mid to lower lung zone airspace disease suspicious for pneumonia. There is a small to moderate right pleural effusion. CT scan of the chest and abdomen done on 01/09/2017 shows 1. Acute to subacute mild compression deformity of L1 without retropulsion of bony fragments. 2. Constellation of findings within the chest suspicious for malignancy, including a large subcarinal mass with esophageal luminal narrowing, as well as right hilar adenopathy with bronchial narrowing 3.Vague 3.6 cm hypoattenuating region within the liver may also reflect neoplasm. Nonspecific bilateral nodularity of both adrenal glands. EKG shows wide complex tachycardia to a maximum 170s Hospital course 1. Acute hypoxic respiratory failure 2. Obstructive pneumonia 3. Metastatic versus small cell carcinoma of the lung lesion to the liver 4. Supraventricular tachycardia . Rheumatoid arthritis on prednisone and methotrexate therapy Hospital course and management The patient was initially started on broad-spectrum antibiotics vancomycin and ceftazidime along with the stress dose of Solu-Medrol. This was then later tapered and narrowed down to ceftriaxone and azithromycin. The patient remained on high flow oxygen throughout his stay in the hospital. The patient did not respond well to the antibiotics and steroids, and the repeat chest x-ray shows a complete collapse of the right lung secondary to obstruction and metastatic cancer spread Along discussion was held between the patient's family including stepson and stepdaughter and the patient himself who decided that the patient does not want any aggressive measures, tissue biopsy or further workup regarding the cancer management. At this point patient was then made comfort care and hospice evaluation was consulted who recommended that the patient would be a good candidate for inpatient hospice. Allergies: Coded Allergies: Sulfa (Sulfonamide Antibiotics) (UNKNOWN 02/12/16) Pertinent Lab Results: Laboratory Tests 01/26/17 0818: Ammonia Cancelled 01/26/17 0610: PT 11.8, INR 1.13, CBC w Diff MAN DIFF ORDERED, RBC 3.72 L, MCV 100.6 H, MCH 33.1 H, RDW 19.4 H, MPV 10.3, Gran % 96.3 H, Lymphocytes % 1.7 L, Monocytes % 2.0, Eosinophils % 0, Basophils % 0 L, Absolute Granulocytes 28.5 H, Segmented Neutrophils 85 H, Band Neutrophils 5, Absolute Lymphocytes 0.5 L, Lymphocytes 4 L, Monocytes 1 L, Absolute Monocytes 0.6, Absolute Eosinophils 0 , Absolute Basophils 0, Metamyelocytes 4 H, Myelocytes 1 H, Platelet Estimate VERIFIED BY SMEAR, Anisocytosis 1+, Macrocytic Cells 1+, PUBS MCHC 32.9 L 01/25/17 0515: Anion Gap 6, Estimated GFR > 60, BUN/Creatinine Ratio 38.2 H, CBC w Diff MAN DIFF ORDERED, RBC 3.67 L, MCV 99.5 H, MCH 33.3 H, RDW 19.3 H, MPV 10.2, Gran % 96.3 H, Lymphocytes % 1.8 L, Monocytes % 1.7, Eosinophils % 0.2, Basophils % 0 L, Absolute Granulocytes 25.5 H, Segmented Neutrophils 89 H, Band Neutrophils 5, Absolute Lymphocytes 0.5 L, Lymphocytes 4 L, Monocytes 2, Absolute Monocytes 0.4, Absolute Eosinophils 0, Absolute Basophils 0, Platelet Estimate ADEQUATE, Normocytic RBCs VERIFIED, Normochromic RBCs VERIFIED, PUBS MCHC 33.4 01/24/17 0515: Anion Gap 6, Estimated GFR > 60, BUN/Creatinine Ratio 34.0 H, Total Bilirubin 1.1, Direct Bilirubin 0.9 H, AST 96 H, ALT 234 H, Alkaline Phosphatase 438 H , Total Protein 4.3 L, Albumin 1.9 L, CBC w Diff MAN DIFF ORDERED, RBC 3.80 L , MCV 98.5 H, MCH 33.2 H, RDW 18.6 H, MPV 10.6 H, Gran % 97.5 H, Lymphocytes % 1.9 L, Monocytes % 0.5 L, Eosinophils % 0.1, Basophils % 0 L, Absolute Granulocytes 23.8 H, Segmented Neutrophils 88 H, Band Neutrophils 4, Absolute Lymphocytes 0.5 L, Lymphocytes 5 L, Monocytes 1 L, Absolute Monocytes 0.1 L, Absolute Eosinophils 0, Absolute Basophils 0, Metamyelocytes 2 H, Nucleated RBCs 1 H, Platelet Estimate VERIFIED BY SMEAR, Anisocytosis 1+, PUBS MCHC 33.7 Disposition Summary Disposition Principal Diagnosis: Metastatic lung cancer likely stage IV no tissue biopsy obtained Additional Diagnosis: Metastatic lesion to the liver History of rheumatoid arthritis previously on methotrexate and prednisone therapy Discharge Disposition: hospice - medical facilit Discharge Instructions General Discharge Information Code Status: Hospice Patient's Diet: As tolerated Patient's Activity: Please follow-up with hospice evaluation and care Follow-Up Instructions/Appts: Please follow-up with hospice evaluation Copies To: ANALISA HAQUE MD
[2017-01-21 16:38] VITALS: BP 102/64
[2017-01-21 23:49] VITALS: BP 140/76
--- NOTE | 2017-01-22 07:22 | PN- Housestaff ---
Subjective Follow-up For: Acute hypoxiac Respiratory Failure Complaints: no complaints Tele-Events Since Last Visit: Remianed in Sinus Tachycardia Subjective: No complains.Stilll having persistent chest congestion. Review of Systems Constitutional: Reports: see HPI. EENTM: Reports: see HPI. Objective Last 24 Hrs of Vital Signs/I&O Vital Signs Date Time Temp Pulse Resp B/P Pulse O2 O2 Flow FiO2 Ox Delivery Rate 01/22 0632 84 134/70 01/22 0019 90 140/76 01/22 0000 94 Nasal 65% Cannula 01/21 2359 94 Nasal 65% Cannula 01/21 2349 92 24 140/76 95 30% 01/21 1748 103 140/80 01/21 1638 98.0 94 18 102/64 95 Nasal 65% Cannula 01/21 1607 95 Nasal 65% Cannula 01/21 1252 142 122/60 01/21 1230 92 Nasal 65% Cannula 01/21 0932 92 Nasal 65% Cannula 01/21 0839 97.5 102 22 128/92 92 Nasal Cannula 01/21 0800 Nasal 65% Cannula Intake & Output 01/22 0800 01/22 0000 01/21 1600 Intake Total 650 1120 Output Total 250 400 Balance 400 720 Intake, IV 600 500 Intake, Oral 50 620 Number 1 Bowel Movements Output, Urine 250 400 Physical Exam General Appearance: Alert, Oriented X3, Cooperative Skin: No Rashes, No Breakdown HEENT: Atraumatic, PERRLA Neck: Supple, No JVD Lymphatic: Axillary nl, Cervical nl Cardiovascular: Regular Rate, Normal S1, Normal S2 Lungs: B/L decreased airway entry. 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 The patient is being treated in the hospital for obstructive pneumonia after failing an outpatient therapy with levofloxacin. Assessment 1. Acute hypoxic respiratory failure likely secondary to pneumonia 2. Lung cancer carcinoma(no tissue biopsy as refused by the patient) 3. Metastatic lesion to the liver 4. Questionable supraventricular tachycardia at the time of admission but now in sinus tachycardia 5. History of rheumatoid arthritis on chronic prednisone and methotrexate therapy 6. Acute kidney injury likely prerenal as ischemia 7. Elevated troponin secondary to type II ischemia 8.Gram positive Cocci in chain Bacteremia Plan We will continue telemetry monitoring Last night labs and events noted. I offered the patient further testing for pulmonary embolism such as VQ scan which he refused and the next 24 hours 1 daily status is better In the meanwhile considering that the patient does not have any right heart strain on transthoracic echocardiogram and his bilateral lower extremity Dopplers have been negative for any clots - would hold the anticoagulation therapy with heparin Last night telemetry events showed beats of rapid sinus tachycardia to 140s to 150s. We will consider starting him on a rate control medication CARDIZEM 30 MG TID (after discussion with the control panel builder). Continue with IV fluids Oncology staff, Dr. Mclain was contacted yesterday and he is aware of the patient's admission no further input from oncology at this point as the patient does not want a biopsy or further testing for the suspicion of cancer Appreciate pulmonology and cardiology input. Will await Sensitivities for Blood cultures and repeat BC times 2. C/w Ceftriaxone and Azithromycin. Patient wishes to be treated conservatively and does not point any heroic measures. DNR/DNI Subcutaneous heparin for DVT prophylaxis now Problem List: 1. Obstructive pneumonia 2. Elevated troponin 3. SVT (supraventricular tachycardia) Pain Ratin Pain Location: PO tylenol as needed Pain Goal: Remain pain free Pain Plan: po Tylenol as needed Tomorrow's Labs & Rationales: cbc and BEP and LFTS
[2017-01-22 08:03] LABS: ABSOLUTE BASOPHIL COUNT 0 /CUMM (0.0-0.2); ABSOLUTE EOSINOPHIL COUNT 0.2 /CUMM (0.0-0.7); ABSOLUTE GRANULOCYTE CT 14.9 /CUMM (1.4-6.5); ABSOLUTE LYMPH COUNT 0.3 /CUMM (1.2-3.4); ABSOLUTE MONOCYTE COUNT 0.2 /CUMM (0.10-0.60); BASOPHIL % 0 % (0.0-2.0); EOSINOPHIL % 1.2 % (0-5); GRANULOCYTE % 95.3 % (42.2-75.2); HEMATOCRIT 38.1 % (42-52); MEAN CORPUSCULAR HGB 33.4 PG (27.0-31.0); MEAN CORPUSCULAR HGB CONC 33.3 G/DL (33.0-37.0); MEAN CORPUSCULAR VOLUME 100.1 FL (80.0-94.0); MEAN PLATELET VOLUME 9.4 FL (7.4-10.4); PLATELET COUNT 128 /CUMM (130-400); WHITE BLOOD CELL COUNT 15.6 /CUMM (4.8-10.8)
[2017-01-22 08:25] VITALS: BP 128/68
--- NOTE | 2017-01-22 11:21 | PN- Pulmonary ---
Subjective HPI/Critical Care Issues: Acute hypoxiac Respiratory Failure Complaints: no complaints Tele-Events Since Last Visit: Remianed in Sinus Tachycardia Subjective: No complains.Stilll having persistent chest congestion. Review of Systems Constitutional: Reports: see HPI. EENTM: Reports: see HPI. Objective Current Medications: Current Medications Sig/Walter Start time Last Medication Dose Route Stop Time Status Admin Acetaminophen 650 MG Q6P PRN 01/20 1115 AC PO Azithromycin 500 MG DAILY 01/21 1037 AC 01/22 Dextrose/Water 250 ML IV 1006 Ceftriaxone Sodium 1,000 MG DAILY 01/22 2000 DC IV Ceftriaxone Sodium 1,000 MG DAILY 01/21 2200 AC 01/22 IV 1006 Dextrose/Sodium 1,000 ML Q13H 01/21 1200 AC 01/22 Chloride IV 0021 Diltiazem HCl 30 MG Q6 01/21 1200 AC 01/22 PO 0632 Guaifenesin 600 MG Q12 01/21 1459 AC 01/21 PO 1748 Heparin Sodium 5,000 UNIT Q8 01/21 1400 AC 01/22 (Porcine) SC 0632 Hydromorphone HCl 0.5 MG Q4P PRN 01/20 1115 AC 01/22 IV 0229 Methylprednisolone 40 MG DAILY 01/21 1036 AC 01/22 IV 1006 Nystatin 5 ML 4 TIMES/DAY 01/22 1100 AC PO Oxycodone/ 1 TAB Q6P PRN 01/20 1115 AC Acetaminophen PO Sodium Chloride 1,000 ML Q13H 01/20 2200 DC 01/21 IV 0931 Vital Signs & I&O Last 24 Hrs of Vitals and I&O: Vital Signs Date Time Temp Pulse Resp B/P Pulse O2 O2 Flow FiO2 Ox Delivery Rate 01/22 0904 94 Nasal 65% Cannula 01/22 0825 97.6 87 20 128/68 93 Nasal Cannula 01/22 0632 84 134/70 01/22 0019 90 140/76 01/22 0000 94 Nasal 65% Cannula 01/21 2359 94 Nasal 65% Cannula 01/21 2349 92 24 140/76 95 30% 01/21 1748 103 140/80 01/21 1638 98.0 94 18 102/64 95 Nasal 65% Cannula 01/21 1607 95 Nasal 65% Cannula 01/21 1252 142 122/60 01/21 1230 92 Nasal 65% Cannula Intake & Output 01/22 1600 01/22 0800 02/23 0000 Intake Total 600 650 Output Total 250 Balance 600 400 Intake, IV 600 600 Intake, Oral 0 50 Number 1 Bowel Movements Output, Urine 250 Patient 130 lb Weight Laboratory Tests 01/22 01/21 0610 1130 Chemistry Sodium (137 - 145 mmol/L) 138 Potassium (3.5 - 5.1 mmol/L) 4.2 Chloride (98 - 107 mmol/L) 105 Carbon Dioxide (22 - 30 mmol/L) 26 Anion Gap (5 - 16) 7 BUN (9 - 20 mg/dL) 35 H Creatinine (0.7 - 1.2 mg/dL) 1.3 H Estimated GFR (>60 ml/min) 54 L BUN/Creatinine Ratio (7 - 25 %) 26.9 H Lactic Acid (0.7 - 2.1 mmol/L) 1.8 Total Bilirubin (0.2 - 1.3 mg/dL) 1.1 Direct Bilirubin (< 0.4 mg/dL) 1.0 H AST (17 - 59 U/L) 213 H ALT (21 - 72 U/L) 400 H Alkaline Phosphatase (< 127 U/L) 313 H Total Protein (6.3 - 8.2 g/dL) 4.2 L Albumin (3.5 - 5.0 g/dL) 1.9 L Coagulation PT (9.4 - 12.5 SEC) 14.0 H INR (0.90 - 1.17) 1.34 H APTT Cancelled Hematology CBC w Diff MAN DIFF ORDERED WBC (4.8 - 10.8 /CUMM) 15.6 H RBC (4.70 - 6.10 /CUMM) 3.80 L Hgb (14.0 - 18.0 G/DL) 12.7 L Hct (42 - 52 %) 38.1 L MCV (80.0 - 94.0 FL) 100.1 H MCH (27.0 - 31.0 PG) 33.4 H RDW (11.5 - 14.5 %) 19.0 H Plt Count (130 - 400 /CUMM) 128 L MPV (7.4 - 10.4 FL) 9.4 Gran % (42.2 - 75.2 %) 95.3 H Lymphocytes % (20.5 - 51.1 %) 2.2 L Monocytes % (1.7 - 9.3 %) 1.3 L Eosinophils % (0 - 5 %) 1.2 Basophils % (0.0 - 2.0 %) 0 L Absolute Granulocytes (1.4 - 6.5 /CUMM) 14.9 H Segmented Neutrophils (42.2 - 75.2 %) 88 H Band Neutrophils (0.0 - 5.0 %) 8 H Absolute Lymphocytes (1.2 - 3.4 /CUMM) 0.3 L Monocytes (1.7 - 9.3 %) 2 Absolute Monocytes (0.10 - 0.60 /CUMM) 0.2 Absolute Eosinophils (0.0 - 0.7 /CUMM) 0.2 Absolute Basophils (0.0 - 0.2 /CUMM) 0 Metamyelocytes (0.0 - 1.0 %) 1 Myelocytes (0 - 0 %) 1 H Nucleated RBCs (0.0 - 0.0 /100WBC) 1 H Platelet Estimate (ADEQUATE) VERIFIED BY SMEAR Anisocytosis 1+ PUBS MCHC (33.0 - 37.0 G/DL) 33.3 01/21 01/21 1010 0410 Chemistry Sodium (137 - 145 mmol/L) 140 Potassium (3.5 - 5.1 mmol/L) 4.2 Chloride (98 - 107 mmol/L) 106 Carbon Dioxide (22 - 30 mmol/L) 25 Anion Gap (5 - 16) 9 BUN (9 - 20 mg/dL) 40 H Creatinine (0.7 - 1.2 mg/dL) 1.7 H Estimated GFR (>60 ml/min) 39 L BUN/Creatinine Ratio (7 - 25 %) 23.5 Urines Urinalysis MOD H Urine Color (YEL,AMB,STR) YEL Urine Clarity (CLEAR) HAZY H Urine pH (5.0 - 8.0) 6.0 Ur Specific Roland (1.001 - 1.035) 1.020 Urine Protein (NEG,<30 MG/DL) 30 H Urine Ketones (NEG) NEG Urine Nitrite (NEG) NEG Urine Bilirubin (NEG) NEG Urine Urobilinogen (0.1 - 1.0 EU/dl) 1.0 Ur Leukocyte Esterase (NEG) NEG Ur Microscopic SEDIMENT EXAMINED Urine RBC (0 - 5 /HPF) 1-3 Urine WBC (0 - 2 /HPF) 1-3 H Ur Epithelial Cells (NONE,FEW) FEW Granular Casts (NONE /LPF) 1-3 H Urine Hemoglobin (NEG) SMALL H Urine Glucose (N MG/DL) NEG 01/21 01/20 01/20 0410 2343 2115 Chemistry Total Bilirubin (0.2 - 1.3 mg/dL) 1.4 H Direct Bilirubin (< 0.4 mg/dL) 1.2 H AST (17 - 59 U/L) 706 H ALT (21 - 72 U/L) 603 H Alkaline Phosphatase (< 127 U/L) 238 H Troponin I (<0.11 ng/ml) 0.28 *H 0.40 *H Total Protein (6.3 - 8.2 g/dL) 4.2 L Albumin (3.5 - 5.0 g/dL) 1.9 L Coagulation APTT (25 - 37 SEC) 62 H Hematology CBC w Diff MAN DIFF ORDERED WBC (4.8 - 10.8 /CUMM) 14.2 H RBC (4.70 - 6.10 /CUMM) 3.91 L Hgb (14.0 - 18.0 G/DL) 13.2 L Hct (42 - 52 %) 39.1 L MCV (80.0 - 94.0 FL) 100.2 H MCH (27.0 - 31.0 PG) 33.7 H RDW (11.5 - 14.5 %) 18.8 H Plt Count (130 - 400 /CUMM) 163 MPV (7.4 - 10.4 FL) 9.6 Segmented Neutrophils (42.2 - 75.2 %) 54 Band Neutrophils (0.0 - 5.0 %) 26 H Lymphocytes (20.5 - 51.1 %) 12 L Monocytes (1.7 - 9.3 %) 6 Metamyelocytes (0.0 - 1.0 %) 2 H Nucleated RBCs (0.0 - 0.0 /100WBC) 3 H Platelet Estimate (ADEQUATE) VERIFIED BY SMEAR Poikilocytosis 1+ Anisocytosis 1+ Macrocytic Cells 1+ PUBS MCHC (33.0 - 37.0 G/DL) 33.7 01/20 01/20 01/20 1515 1142 1139 Chemistry Lactic Acid (0.7 - 2.1 mmol/L) 3.8 H 6.7 H Ammonia (9 - 30 umol/L) 14 Troponin I (<0.11 ng/ml) 0.34 *H Cancelled Coagulation PT (9.4 - 12.5 SEC) 16.8 H INR (0.90 - 1.17) 1.61 H D-Dimer (70 - 232 ng/ml) 1563 H Microbiology Date/Time Procedure - Status Source Growth 01/22 1108 Legionella Antigen - ORD URINE ROUT 01/22 1108 Streptococcus pneumoniae Antigen (M - ORD URINE ROUT 01/21 1149 Respiratory Culture - COLB LOWER RESP 01/21 1149 Gram Stain - COLB LOWER RESP 01/21 0900 Blood Culture - RECD BLOOD 01/21 0848 Blood Culture - RECD BLOOD 01/20 1007 Blood Culture - RES BLOOD GRAM POSITIVE COCCI 01/20 0955 Blood Culture - RES BLOOD GRAM POSITIVE COCCI Impression/Plan Impression/Plan Impression/Plan: Physical Exam General Appearance Oriented X3, Cooperative, Moderate Distress Skin No Breakdown HEENT Atraumatic, PERRLA, EOMI Neck No JVD, No thryomegaly Lymphatic Axillary nl, Cervical nl Cardiovascular Normal S1, Normal S2 Lungs bilateral decreased airway entry and diminished breath sounds Abdomen Soft, No Tenderness Neurological Strength at 5/5 X4 Ext Extremities No Cyanosis, No Edema IMPRESSION: 1. Redemonstrated intrathoracic findings suspicious for malignancy, including a subcarinal mass likely extending into the right hilum, as well as additional mediastinal lymphadenopathy. 2. In comparison to 01/09/2017, there is increasing airspace opacification throughout the right lower and middle lobes. Redemonstrated narrowing of the central airways in the right middle and lower lobe raise the possibility that this opacification could represent postobstructive inflammation/pneumonia. Underlying mass and/or regions of atelectasis are difficult to exclude in the absence of intravenous contrast. 3. Multiple scattered subcentimeter nodules bilaterally, similar to 01/09/2017. Extensive upper lobe predominant emphysema. 4. Redemonstrated, loculated appearing lateral right basilar pleural effusion. 5. Probable hepatic mass, not adequately assessed in the absence of intravenous contrast. 6. Redemonstrated superior L1 compression deformity, similar to prior. Blood culture positive for gram positive cocci IMPRESSION 1. Improving Acute hypoxic respiratory failure most likely secondary to obstructive pneumonia(after failure to the outpatient therapy with levofloxacin) . 2. Metastatic disease with extensive liver mets now with sig met acidosis due to hepatic dysfunction and sepsis 3. Sig PNa Post obstructive with Pleural mets 4. Altered lfts due to prob liver mets 5 History of rheumatoid arthritis and hence immunosuppresed 7. Wide complex tachycardia status post 1 dose of 6 mg IV ADENOSINE IN ER 7. lactic acidosis 8. MASHA likley-prerenal REC Can dc ivf if taking adequate po cont high flow and wean to nasal cannula Sputum culutre BIPAP only if worse Will need ultrasound guided biopsy of the liver if he gets better soon Discussed with the family Will follow Prog poor
--- NOTE | 2017-01-22 12:39 | PN- Att Addend ---
Attending Addendum Attending Brief Note Patient looks a little bit better and brighter, on high flow oxygen. Vital signs are stable his pulse rate has come down some, he is febrile. Still has some congestion when auscultating his lungs.. Appreciate Dr. Ruffin input and recommendations he improves of the more with due to liver biopsy under ultrasound guidance for diagnostic procedure to continue present treatment try to taper to nasal oxygen continue antibiotic therapy and respiratory therapy. The condition is still guarded. Current Medications Sig/Walter Start time Last Medication Dose Route Stop Time Status Admin Acetaminophen 650 MG Q6P PRN 01/20 1115 AC PO Azithromycin 500 MG DAILY 01/21 1037 AC 01/22 Dextrose/Water 250 ML IV 1006 Ceftriaxone Sodium 1,000 MG DAILY 01/22 2000 DC IV Ceftriaxone Sodium 1,000 MG DAILY 01/21 2200 AC 01/22 IV 1006 Dextrose/Sodium 1,000 ML Q13H 01/21 1200 AC 01/22 Chloride IV 0021 Diltiazem HCl 30 MG Q6 01/21 1200 AC 01/22 PO 1212 Guaifenesin 600 MG Q12 01/21 1459 AC 01/21 PO 1748 Heparin Sodium 5,000 UNIT Q8 01/21 1400 AC 01/22 (Porcine) SC 0632 Hydromorphone HCl 0.5 MG Q4P PRN 01/20 1115 AC 01/22 IV 0229 Methylprednisolone 40 MG DAILY 01/21 1036 AC 01/22 IV 1006 Nystatin 5 ML 4 TIMES/DAY 01/22 1100 AC PO Oxycodone/ 1 TAB Q6P PRN 01/20 1115 AC Acetaminophen PO Patient Medication 1 ED .STK-MED ONE 01/22 1137 [facility] Teaching ED 01/22 1138 Laboratory Tests 01/22/17 0610: Anion Gap 7, Estimated GFR 54 L, BUN/Creatinine Ratio 26.9 H, Lactic Acid 1.8, Total Bilirubin 1.1, Direct Bilirubin 1.0 H, AST 213 H, ALT 400 H, Alkaline Phosphatase 313 H, Total Protein 4.2 L, Albumin 1.9 L, PT 14.0 H, INR 1.34 H, CBC w Diff MAN DIFF ORDERED, RBC 3.80 L, MCV 100.1 H, MCH 33.4 H, RDW 19.0 H, MPV 9.4, Gran % 95.3 H, Lymphocytes % 2.2 L, Monocytes % 1.3 L, Eosinophils % 1.2, Basophils % 0 L, Absolute Granulocytes 14.9 H, Segmented Neutrophils 88 H, Band Neutrophils 8 H, Absolute Lymphocytes 0.3 L, Monocytes 2, Absolute Monocytes 0.2, Absolute Eosinophils 0.2, Absolute Basophils 0, Metamyelocytes 1, Myelocytes 1 H, Nucleated RBCs 1 H, Platelet Estimate VERIFIED BY SMEAR, Anisocytosis 1+, PUBS MCHC 33.3 Microbiology Date/Time Procedure - Status Source Growth 01/22 1108 Legionella Antigen - ORD URINE ROUT 01/22 1108 Streptococcus pneumoniae Antigen (M - ORD URINE ROUT Vital Signs Date Time Temp Pulse Resp B/P Pulse O2 O2 Flow FiO2 Ox Delivery Rate 01/22 1212 92 140/76 01/22 1000 97 Nasal 65% Cannula 01/22 0904 94 Nasal 65% Cannula 01/22 0825 97.6 87 20 128/68 93 Nasal Cannula 01/22 0632 84 134/70 Intake & Output 01/22 1600 Intake Total Output Total Balance Patient 130 lb Weight
[2017-01-22 16:44] VITALS: BP 112/68
[2017-01-23 00:31] VITALS: BP 120/70
[2017-01-23 07:56] VITALS: BP 128/64
[2017-01-23 08:01] LABS: ABSOLUTE BASOPHIL COUNT 0 /CUMM (0.0-0.2); ABSOLUTE EOSINOPHIL COUNT 0 /CUMM (0.0-0.7); ABSOLUTE LYMPH COUNT 0.6 /CUMM (1.2-3.4); ABSOLUTE MONOCYTE COUNT 0.2 /CUMM (0.10-0.60); BASOPHIL % 0 % (0.0-2.0); EOSINOPHIL % 0.2 % (0-5); HEMATOCRIT 36.4 % (42-52); MEAN CORPUSCULAR HGB 33.5 PG (27.0-31.0); MEAN CORPUSCULAR HGB CONC 33.6 G/DL (33.0-37.0); MEAN CORPUSCULAR VOLUME 99.5 FL (80.0-94.0); MEAN PLATELET VOLUME 9.5 FL (7.4-10.4); PLATELET COUNT 117 /CUMM (130-400); RED BLOOD CELL CT 3.66 /CUMM (4.70-6.10); WHITE BLOOD CELL COUNT 20.9 /CUMM (4.8-10.8)
--- NOTE | 2017-01-23 09:40 | PN- Housestaff ---
Subjective Follow-up For: Gram-positive bacteremia Metastatic cancer likely small cell carcinoma of the lung Transaminases and hepatitis Obstructive pneumonia Subjective: Patient feeling better than yesterday. Verbalize his concerns today. Still requiring high flow oxygen Review of Systems Constitutional: Reports: see HPI. Objective Last 24 Hrs of Vital Signs/I&O Vital Signs Date Time Temp Pulse Resp B/P Pulse O2 O2 Flow FiO2 Ox Delivery Rate 01/23 0756 98.6 87 20 128/64 94 Nasal Cannula 01/23 0640 124/60 01/23 0039 94 Nasal 75% Cannula 01/23 0031 98.1 86 120/70 01/23 0000 92 Nasal 75% Cannula 01/22 2348 83 120/70 01/22 2219 87 Nasal 70% Cannula 01/22 1951 92 Nasal 60% Cannula 01/22 1810 88 112/68 01/22 1715 96 Nasal 65% Cannula 01/22 1644 97.8 94 20 112/68 94 01/22 1600 93 Nasal 65% Cannula 01/22 1402 95 Nasal 65% Cannula 01/22 1212 92 140/76 01/22 1000 97 Nasal 65% Cannula Intake & Output 01/23 1600 01/23 0800 01/23 0000 Intake Total 620 800 Output Total 400 400 Balance 220 400 Intake, IV 600 600 Intake, Oral 20 200 Number 1 Bowel Movements Output, Urine 400 400 Physical Exam General Appearance: Alert, Oriented X3, Cooperative Skin: No Rashes, No Breakdown HEENT: Atraumatic, PERRLA Neck: Supple, No JVD, No thryomegaly Lymphatic: Axillary nl, Cervical nl Cardiovascular: Normal S1, Normal S2 Lungs: BILATERAL DECREASED AIRWAY ENTRY bILATERAL DECREASED BREATH SOUNDS Assessment/Plan Assessment: This is a 76-year-old male with a past medical history of rheumatoid arthritis on methotrexate therapy, recently diagnosis metastatic lesion to the liver 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 The patient is being treated in the hospital for obstructive pneumonia after failing an outpatient therapy with levofloxacin. Assessment 1. Acute hypoxic respiratory failure likely secondary to pneumonia 2. Lung cancer carcinoma(no tissue biopsy as refused by the patient) 3. Metastatic lesion to the liver 4. Questionable supraventricular tachycardia at the time of admission but now in sinus tachycardia 5. History of rheumatoid arthritis on chronic prednisone and methotrexate therapy 6. Acute kidney injury likely prerenal as ischemia 7. Elevated troponin secondary to type II ischemia 8.Gram positive Cocci in chain Bacteremia Plan We will continue telemetry monitoring for bouts of SVT Heart rate fell controlled on by mouth Cardizem Cc IV fluids today considering that the patient is eating fine Oncology staff, Dr. Mclain was contacted yesterday and he is aware of the patient's admission no further input from oncology at this point as the patient does not want a biopsy or further testing for the suspicion of cancer Appreciate pulmonology and cardiology input. Will await Sensitivities for Blood cultures and repeat BC times 2. Repeat blood cultures remain negative Strep and Legionella antigen in the urine C/w Ceftriaxone and Azithromycin. And IV Solu-Medrol for today's history. Broad prednisone tomorrow Patient wishes to be treated conservatively and does not point any heroic measures. DNR/DNI Subcutaneous heparin for DVT prophylaxis now Plan for a liver biopsy under IR guidance on Thursday. Problem List: 1. Elevated troponin 2. Acute prerenal azotemia 3. SVT (supraventricular tachycardia) Pain Ratin Pain Location: NONE Pain Goal: Remain pain free Pain Plan: PO TYELNOL NEEDED Tomorrow's Labs & Rationales: CBC BEP INR
--- NOTE | 2017-01-23 09:48 | PN- Pulmonary ---
Subjective HPI/Critical Care Issues: Subjective: No complains.Stilll having persistent chest congestion. Review of Systems Constitutional: Reports: see HPI. EENTM: Reports: see HPI. Objective Current Medications: Current Medications Sig/Walter Start time Last Medication Dose Route Stop Time Status Admin Acetaminophen 650 MG Q6P PRN 01/20 1115 AC PO Azithromycin 500 MG DAILY 01/21 1037 AC 01/22 Dextrose/Water 250 ML IV 1006 Ceftriaxone Sodium 1,000 MG DAILY 01/21 2200 AC 01/22 IV 1006 Dextrose/Sodium 1,000 ML Q13H 01/21 1200 AC 01/23 Chloride IV 0300 Diltiazem HCl 30 MG Q6 01/21 1200 AC 01/23 PO 0640 Guaifenesin 600 MG Q12 01/21 1459 AC 01/21 PO 1748 Heparin Sodium 5,000 UNIT Q8 01/21 1400 AC 01/23 (Porcine) SC 0640 Hydromorphone HCl 0.5 MG Q4P PRN 01/20 1115 AC 01/22 IV 0229 Methylprednisolone 40 MG DAILY 01/21 1036 AC 01/22 IV 1006 Nystatin 5 ML 4 TIMES/DAY 01/22 1100 AC 01/22 PO 2150 Oxycodone/ 1 TAB Q6P PRN 01/20 1115 AC Acetaminophen PO Patient Medication 1 ED .STK-MED ONE 01/22 1137 [facility] Teaching ED 01/22 1138 Vital Signs & I&O Last 24 Hrs of Vitals and I&O: Vital Signs Date Time Temp Pulse Resp B/P Pulse O2 O2 Flow FiO2 Ox Delivery Rate 01/23 0756 98.6 87 20 128/64 94 Nasal Cannula 01/23 0640 124/60 01/23 0039 94 Nasal 75% Cannula 01/23 0031 98.1 86 120/70 01/23 0000 92 Nasal 75% Cannula 01/22 2348 83 120/70 01/22 2219 87 Nasal 70% Cannula 01/22 1951 92 Nasal 60% Cannula 01/22 1810 88 112/68 01/22 1715 96 Nasal 65% Cannula 01/22 1644 97.8 94 20 112/68 94 01/22 1600 93 Nasal 65% Cannula 01/22 1402 95 Nasal 65% Cannula 01/22 1212 92 140/76 01/22 1000 97 Nasal 65% Cannula Intake & Output 01/23 1600 02/24 0800 02 0000 Intake Total 620 800 Output Total 400 400 Balance 220 400 Intake, IV 600 600 Intake, Oral 20 200 Number 1 Bowel Movements Output, Urine 400 400 SIGNIFICANT DATA PICC line is in place Blood work reviewed creatinine has normalized lactic acid is normal anion gap is normalized total bilirubin is down to 1.1 alkaline phosphatase still elevated AST ALT is improving troponin 0.28 TSH was low and free T4 was low as well White count up to 20,000 hemoglobin 12.3 INR to 1.34 Impression/Plan Impression/Plan Impression/Plan: Physical Exam General Appearance Oriented X3, Cooperative, Moderate Distress Skin No Breakdown HEENT Atraumatic, PERRLA, EOMI Neck No JVD, No thryomegaly Lymphatic Axillary nl, Cervical nl Cardiovascular Normal S1, Normal S2 Lungs bilateral decreased airway entry and diminished breath sounds Abdomen Soft, No Tenderness Neurological Strength at 5/5 X4 Ext Extremities No Cyanosis, No Edema IMPRESSION: 1. Redemonstrated intrathoracic findings suspicious for malignancy, including a subcarinal mass likely extending into the right hilum, as well as additional mediastinal lymphadenopathy. 2. In comparison to 01/09/2017, there is increasing airspace opacification throughout the right lower and middle lobes. Redemonstrated narrowing of the central airways in the right middle and lower lobe raise the possibility that this opacification could represent postobstructive inflammation/pneumonia. Underlying mass and/or regions of atelectasis are difficult to exclude in the absence of intravenous contrast. 3. Multiple scattered subcentimeter nodules bilaterally, similar to 01/09/2017. Extensive upper lobe predominant emphysema. 4. Redemonstrated, loculated appearing lateral right basilar pleural effusion. 5. Probable hepatic mass, not adequately assessed in the absence of intravenous contrast. 6. Redemonstrated superior L1 compression deformity, similar to prior. Blood culture positive for gram positive cocci IMPRESSION 1. Improving Acute hypoxic respiratory failure most likely secondary to obstructive pneumonia(after failure to the outpatient therapy with levofloxacin) . patient has gram-positive bacteremia and sepsis improving 2. Metastatic disease with extensive liver mets now with sig met acidosis due to hepatic dysfunction and sepsis 3. Sig PNa Post obstructive with Pleural mets 4. Altered lfts due to prob liver mets 5 History of rheumatoid arthritis and hence immunosuppresed 7. Wide complex tachycardia status post 1 dose of 6 mg IV ADENOSINE IN ER now resolved with non-ST segment elevation [place] with demand ischemia 7. lactic acidosis resolved 8. MASHA likley-prerenal resolved REC Can change him to nasal cannula if tolerates Sputum culutre Will need ultrasound guided biopsy of the liver on Thursday Continue antibiotics can discontinue azithromycin. If he stable can given one dose of by mouth Lasix 5 total days of steroids can switch him to by mouth prednisone patient should get 40 mg total daily for total of 5 days
[2017-01-23 15:55] VITALS: BP 124/64
--- NOTE | 2017-01-23 19:58 | PN- Att Addend ---
Attending Addendum Attending Brief Note Patient still weak but looking a little better step daughter at his site oxygen on in NAD VS stable some labs improved.Appreciate Dr Ruffin imput and recommedations, patient adviced to consider the liver biopsy for diagnostic and treatment. Current Medications Sig/Walter Start time Last Medication Dose Route Stop Time Status Admin Acetaminophen 650 MG Q6P PRN 01/20 1115 AC PO Azithromycin 500 MG DAILY 01/21 1037 DC 01/23 Dextrose/Water 250 ML IV 1032 Ceftriaxone Sodium 1,000 MG DAILY 01/21 2200 AC 01/23 IV 1018 Dextrose/Sodium 1,000 ML Q13H 01/21 1200 DC 01/23 Chloride IV 0300 Diltiazem HCl 30 MG Q6 01/21 1200 AC 01/23 PO 01/27 1400 1855 Guaifenesin 600 MG Q12 01/21 1459 AC 01/23 PO 1012 Heparin Sodium 5,000 UNIT Q8 01/21 1400 AC 01/23 (Porcine) SC 1317 Hydromorphone HCl 0.5 MG Q4P PRN 01/20 1115 AC 01/22 IV 0229 Methylprednisolone 40 MG DAILY 01/21 1036 DC 01/23 IV 1031 Nystatin 5 ML 4 TIMES/DAY 01/22 1100 AC 01/23 PO 1855 Oxycodone/ 1 TAB Q6P PRN 01/20 1115 AC Acetaminophen PO Prednisone 40 MG DAILY 01/24 1000 AC PO 01/28 1001 Laboratory Tests 01/23/17 0650: Anion Gap 5, Estimated GFR > 60, BUN/Creatinine Ratio 31.0 H, CBC w Diff MAN DIFF ORDERED, RBC 3.66 L, MCV 99.5 H, MCH 33.5 H, RDW 19.0 H, MPV 9.5, Gran % 96.0 H, Lymphocytes % 2.7 L, Monocytes % 1.1 L, Eosinophils % 0.2, Basophils % 0 L, Absolute Granulocytes 20.0 H, Segmented Neutrophils 73, Band Neutrophils 15 H, Absolute Lymphocytes 0.6 L, Lymphocytes 8 L, Monocytes 2, Absolute Monocytes 0.2, Absolute Eosinophils 0, Absolute Basophils 0, Metamyelocytes 2 H, Platelet Estimate VERIFIED BY SMEAR, Normocytic RBCs VERIFIED, Normochromic RBCs VERIFIED, PUBS MCHC 33.6 Vital Signs Date Time Temp Pulse Resp B/P Pulse O2 O2 Flow FiO2 Ox Delivery Rate 01/23 1855 92 122/70 01/23 1555 97.2 90 22 124/64 90 Nasal Cannula 01/23 1157 92 136/70 Intake & Output 01/23 1600 Intake Total 625 Output Total 200 Balance 425 Intake, IV 525 Intake, Oral 100 Number 0 Bowel Movements Output, Urine 200
[2017-01-24 00:09] VITALS: BP 140/76
--- NOTE | 2017-01-24 06:40 | PN- Housestaff ---
Subjective Follow-up For: Obstructive pneumonia Metastatic lesion from the lung to the liver Tele-Events Since Last Visit: Remained in normal sinus rhythm Subjective: Patient is doing better. He remained afebrile overnight. He remained on high flow oxygen Review of Systems Constitutional: Reports: see HPI. Objective Last 24 Hrs of Vital Signs/I&O Vital Signs Date Time Temp Pulse Resp B/P Pulse O2 O2 Flow FiO2 Ox Delivery Rate 01/24 0031 91 Nasal 65% Cannula 01/24 0015 98 140/60 01/24 0009 97.5 100 20 140/76 90 Nasal 65% Cannula 01/24 0000 Nasal 65% Cannula 01/23 2220 92 Nasal 65% Cannula 01/23 1855 92 122/70 01/23 1600 Nasal 65% Cannula 01/23 1555 97.2 90 22 124/64 90 Nasal Cannula 01/23 1157 92 136/70 01/23 0800 94 Nasal 75% Cannula 01/23 0756 98.6 87 20 128/64 94 Nasal Cannula Intake & Output 01/24 0800 01/24 0000 01/23 1600 Intake Total 480 625 Output Total 100 200 Balance 380 425 Intake, IV 525 Intake, Oral 480 100 Number 0 Bowel Movements Output, Urine 100 200 Physical Exam General Appearance: Alert, Oriented X3 Skin: No Rashes, No Breakdown HEENT: Atraumatic, PERRLA Neck: Supple, No JVD Lymphatic: Axillary nl, Cervical nl Cardiovascular: Normal S1, Normal S2 Lungs: b/l decreased airway entry and wheezing Abdomen: Soft, No Tenderness Assessment/Plan Assessment: This is a 76-year-old male with a past medical history of rheumatoid arthritis on methotrexate therapy, recently diagnosis metastatic lesion to the liver 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 The patient is being treated in the hospital for obstructive pneumonia after failing an outpatient therapy with levofloxacin. Assessment 1. Acute hypoxic respiratory failure likely secondary to pneumonia 2. Lung cancer carcinoma(no tissue biopsy as refused by the patient) 3. Metastatic lesion to the liver 4. Questionable supraventricular tachycardia at the time of admission but now in sinus tachycardia 5. History of rheumatoid arthritis on chronic prednisone and methotrexate therapy 6. Acute kidney injury likely prerenal as ischemia 7. Elevated troponin secondary to type II ischemia 8.Gram positive Cocci in chain Bacteremia Plan We will continue telemetry monitoring for bouts of SVT-this is resolved when the patient is currently in normal sinus rhythm consider discontinuing telemetry in the next 24 hours if there are no new events Heart rate fell controlled on by mouth Cardizem. This needs to be consulted with the cardiology staff germination testing manager and can be converted to long-acting Cardizem, 120 mg CD IV fluids discontinued as the patient is eating well Oncology staff, Dr. Mclain contacted and the patient is to go undergo liver biopsy on Thursday. Appreciate pulmonology and cardiology input. Blood cultures grew strep pneumo await sensitivities and can switch to by mouth Augmentin if sensitive Repeat blood cultures remain negative Strep and Legionella antigen in the urine negative Switch to by mouth prednisone 40 mg and continue for the next 5 days Patient wishes to be treated conservatively and does not point any heroic measures. DNR/DNI Subcutaneous heparin for DVT prophylaxis now Plan for a liver biopsy under IR guidance on Thursday. Problem List: 1. Elevated troponin 2. Chest wall pain 3. Obstructive pneumonia Pain Ratin Pain Location: back pain Pain Goal: Remain pain free Pain Plan: po tylneol as neded Tomorrow's Labs & Rationales: none
[2017-01-24 07:32] LABS: ABSOLUTE BASOPHIL COUNT 0 /CUMM (0.0-0.2); ABSOLUTE EOSINOPHIL COUNT 0 /CUMM (0.0-0.7); ABSOLUTE GRANULOCYTE CT 23.8 /CUMM (1.4-6.5); ABSOLUTE LYMPH COUNT 0.5 /CUMM (1.2-3.4); ABSOLUTE MONOCYTE COUNT 0.1 /CUMM (0.10-0.60); BASOPHIL % 0 % (0.0-2.0); EOSINOPHIL % 0.1 % (0-5); GRANULOCYTE % 97.5 % (42.2-75.2); HEMATOCRIT 37.4 % (42-52); MEAN CORPUSCULAR HGB 33.2 PG (27.0-31.0); MEAN CORPUSCULAR HGB CONC 33.7 G/DL (33.0-37.0); MEAN CORPUSCULAR VOLUME 98.5 FL (80.0-94.0); MEAN PLATELET VOLUME 10.6 FL (7.4-10.4); PLATELET COUNT 136 /CUMM (130-400); RBC DISTRIBUTION WIDTH 18.6 % (11.5-14.5); WHITE BLOOD CELL COUNT 24.4 /CUMM (4.8-10.8)
[2017-01-24 08:45] VITALS: BP 124/60
--- NOTE | 2017-01-24 11:57 | PN- Pulmonary ---
Subjective HPI/Critical Care Issues: pt seen and examined high flow o2 at 60% wbc 24.4 increased afebrile no n/v/d/c Objective Current Medications: Current Medications Sig/Walter Start time Last Medication Dose Route Stop Time Status Admin Acetaminophen 650 MG Q6P PRN 01/20 1115 AC PO Azithromycin 500 MG DAILY 01/21 1037 DC 01/23 Dextrose/Water 250 ML IV 1032 Ceftriaxone Sodium 1,000 MG DAILY 01/21 2200 AC 01/24 IV 1104 Dextrose/Sodium 1,000 ML Q13H 01/21 1200 DC 01/23 Chloride IV 0300 Diltiazem HCl 30 MG Q6 01/21 1200 AC 01/24 PO 01/27 1400 0615 Guaifenesin 600 MG Q12 01/21 1459 AC 01/24 PO 1104 Heparin Sodium 5,000 UNIT Q8 01/21 1400 AC 01/24 (Porcine) SC 0615 Hydromorphone HCl 0.5 MG Q4P PRN 01/20 1115 AC 01/22 IV 0229 Methylprednisolone 40 MG DAILY 01/21 1036 DC 01/23 IV 1031 Nystatin 5 ML 4 TIMES/DAY 01/22 1100 AC 01/24 PO 1104 Oxycodone/ 1 TAB Q6P PRN 01/20 1115 AC Acetaminophen PO Prednisone 40 MG DAILY 01/24 1000 AC 01/24 PO 01/28 1001 1105 Vital Signs & I&O Last 24 Hrs of Vitals and I&O: Vital Signs Date Time Temp Pulse Resp B/P Pulse O2 O2 Flow FiO2 Ox Delivery Rate 01/24 1003 92 Nasal 65% Cannula 01/24 0845 97.8 102 24 124/60 92 01/24 0615 90 134/78 01/24 0031 91 Nasal 65% Cannula 01/24 0015 98 140/60 01/24 0009 97.5 100 20 140/76 90 Nasal 65% Cannula 01/24 0000 Nasal 65% Cannula 01/23 2220 92 Nasal 65% Cannula 01/23 1855 92 122/70 01/23 1600 Nasal 65% Cannula 01/23 1555 97.2 90 22 124/64 90 Nasal Cannula 01/23 1157 92 136/70 Intake & Output 01/24 1600 01/24 0800 01/24 0000 Intake Total 250 480 Output Total 100 Balance 250 380 Intake, IV 0 Intake, Oral 250 480 Number 1 Bowel Movements Output, Urine 100 Exam Other Physical Findings: gen awake, alert heent high flow o2 cvs s1, s2 lungs rare rhonchi, diminished bs abd soft bs+ ext edematous Results Last 24 Hrs of Lab Results: Laboratory Tests 01/24/17 0515: Anion Gap 6, Estimated GFR > 60, BUN/Creatinine Ratio 34.0 H, CBC w Diff MAN DIFF ORDERED, RBC 3.80 L, MCV 98.5 H, MCH 33.2 H, RDW 18.6 H, MPV 10.6 H, Gran % 97.5 H, Lymphocytes % 1.9 L, Monocytes % 0.5 L, Eosinophils % 0.1, Basophils % 0 L, Absolute Granulocytes 23.8 H, Segmented Neutrophils 88 H, Band Neutrophils 4, Absolute Lymphocytes 0.5 L, Lymphocytes 5 L, Monocytes 1 L, Absolute Monocytes 0.1 L, Absolute Eosinophils 0, Absolute Basophils 0, Metamyelocytes 2 H, Nucleated RBCs 1 H, Platelet Estimate VERIFIED BY SMEAR, Anisocytosis 1+, PUBS MCHC 33.7 Impression/Plan Impression/Plan Impression/Plan: Impression 76 year old man Acute hypoxemic respiratory failure, obstructive pna is considered as likely cause Metastatic ca with mets to liver transaminitis leukocytosis Plan -cont to reduce fio2 requirements as tolerated -workup for liver lesions per primary team -cont abx at this time -steroid taper as ordered DVT prophylaxis at all times
--- NOTE | 2017-01-24 12:43 | PN- Att Addend ---
Attending Addendum Attending Brief Note Patient reports no complaints this morning. General Appearance: Lethargic Skin: Grossly normal HEENT: PEERLA Neck: Supple, No JVD Cardiovascular: Regular Rate, Normal S1, Normal S2, No Murmurs Lungs: Decreased air entry right lung Abdomen: Normal Bowel Sounds, Soft, No Tenderness Extremities: Pedal edema Assessment Strep pneumonia sepsis sensitivity pending currently on ceftriaxone. Worsening leukocytosis likely secondary to prednisone otherwise patient looks about stable. Kidney function has improved. This point will continue current care however prognosis appears poor. Plan Continue ceftriaxone Prednisone taper Continue respiratory care Check LFTs Continue supportive care DNI/DNR Current Medications Sig/Walter Start time Last Medication Dose Route Stop Time Status Admin Acetaminophen 650 MG Q6P PRN 01/20 1115 AC PO Azithromycin 500 MG DAILY 01/21 1037 DC 01/23 Dextrose/Water 250 ML IV 1032 Ceftriaxone Sodium 1,000 MG DAILY 01/21 2200 AC 01/24 IV 1104 Dextrose/Sodium 1,000 ML Q13H 01/21 1200 DC 01/23 Chloride IV 0300 Diltiazem HCl 30 MG Q6 01/21 1200 AC 01/24 PO 01/27 1400 1155 Guaifenesin 600 MG Q12 01/21 1459 AC 01/24 PO 1104 Heparin Sodium 5,000 UNIT Q8 01/21 1400 AC 01/24 (Porcine) SC 0615 Hydromorphone HCl 0.5 MG Q4P PRN 01/20 1115 AC 01/22 IV 0229 Methylprednisolone 40 MG DAILY 01/21 1036 DC 01/23 IV 1031 Nystatin 5 ML 4 TIMES/DAY 01/22 1100 AC 01/24 PO 1104 Oxycodone/ 1 TAB Q6P PRN 01/20 1115 AC Acetaminophen PO Prednisone 40 MG DAILY 01/24 1000 AC 01/24 PO 01/28 1001 1105 Laboratory Tests 01/24 0515 Chemistry Sodium (137 - 145 mmol/L) 141 Potassium (3.5 - 5.1 mmol/L) 4.1 Chloride (98 - 107 mmol/L) 106 Carbon Dioxide (22 - 30 mmol/L) 29 Anion Gap (5 - 16) 6 BUN (9 - 20 mg/dL) 34 H Creatinine (0.7 - 1.2 mg/dL) 1.0 Estimated GFR (>60 ml/min) > 60 BUN/Creatinine Ratio (7 - 25 %) 34.0 H Hematology CBC w Diff MAN DIFF ORDERED WBC (4.8 - 10.8 /CUMM) 24.4 H RBC (4.70 - 6.10 /CUMM) 3.80 L Hgb (14.0 - 18.0 G/DL) 12.6 L Hct (42 - 52 %) 37.4 L MCV (80.0 - 94.0 FL) 98.5 H MCH (27.0 - 31.0 PG) 33.2 H RDW (11.5 - 14.5 %) 18.6 H Plt Count (130 - 400 /CUMM) 136 MPV (7.4 - 10.4 FL) 10.6 H Gran % (42.2 - 75.2 %) 97.5 H Lymphocytes % (20.5 - 51.1 %) 1.9 L Monocytes % (1.7 - 9.3 %) 0.5 L Eosinophils % (0 - 5 %) 0.1 Basophils % (0.0 - 2.0 %) 0 L Absolute Granulocytes (1.4 - 6.5 /CUMM) 23.8 H Segmented Neutrophils (42.2 - 75.2 %) 88 H Band Neutrophils (0.0 - 5.0 %) 4 Absolute Lymphocytes (1.2 - 3.4 /CUMM) 0.5 L Lymphocytes (20.5 - 51.1 %) 5 L Monocytes (1.7 - 9.3 %) 1 L Absolute Monocytes (0.10 - 0.60 /CUMM) 0.1 L Absolute Eosinophils (0.0 - 0.7 /CUMM) 0 Absolute Basophils (0.0 - 0.2 /CUMM) 0 Metamyelocytes (0.0 - 1.0 %) 2 H Nucleated RBCs (0.0 - 0.0 /100WBC) 1 H Platelet Estimate (ADEQUATE) VERIFIED BY SMEAR Anisocytosis 1+ PUBS MCHC (33.0 - 37.0 G/DL) 33.7 Vital Signs Date Time Temp Pulse Resp B/P Pulse O2 O2 Flow FiO2 Ox Delivery Rate 01/24 1155 102 124/60 01/24 1003 92 Nasal 65% Cannula 01/24 0845 97.8 102 24 124/60 92 01/24 0615 90 134/78 01/24 0031 91 Nasal 65% Cannula 01/24 0015 98 140/60 01/24 0009 97.5 100 20 140/76 90 Nasal 65% Cannula 01/24 0000 Nasal 65% Cannula 01/23 2220 92 Nasal 65% Cannula 01/23 1855 92 122/70 01/23 1600 Nasal 65% Cannula 01/23 1555 97.2 90 22 124/64 90 Nasal Cannula
[2017-01-24 16:09] VITALS: BP 122/70
[2017-01-24 23:10] VITALS: BP 130/66
[2017-01-25 05:45] LABS: ABSOLUTE BASOPHIL COUNT 0 /CUMM (0.0-0.2); ABSOLUTE EOSINOPHIL COUNT 0 /CUMM (0.0-0.7); ABSOLUTE GRANULOCYTE CT 25.5 /CUMM (1.4-6.5); ABSOLUTE LYMPH COUNT 0.5 /CUMM (1.2-3.4); ABSOLUTE MONOCYTE COUNT 0.4 /CUMM (0.10-0.60); BASOPHIL % 0 % (0.0-2.0); EOSINOPHIL % 0.2 % (0-5); GRANULOCYTE % 96.3 % (42.2-75.2); HEMATOCRIT 36.5 % (42-52); MEAN CORPUSCULAR HGB 33.3 PG (27.0-31.0); MEAN CORPUSCULAR HGB CONC 33.4 G/DL (33.0-37.0); MEAN CORPUSCULAR VOLUME 99.5 FL (80.0-94.0); MEAN PLATELET VOLUME 10.2 FL (7.4-10.4); PLATELET COUNT 159 /CUMM (130-400); RBC DISTRIBUTION WIDTH 19.3 % (11.5-14.5); RED BLOOD CELL CT 3.67 /CUMM (4.70-6.10); WHITE BLOOD CELL COUNT 26.4 /CUMM (4.8-10.8)
--- NOTE | 2017-01-25 08:14 | PN- Housestaff ---
Subjective Follow-up For: obstructive pneumonia Tele-Events Since Last Visit: nsr 86-95, bbb Subjective: pt was seen this morning, pt has no complains, still on hiflow oxygen. he denies shortness of breath, cough. on lung exam, normal breath sounds on the left, decreased on the right. He has 2+ edema up to mid calf. CXR showed Progressive volume loss and consolidation in right lung with shift of mediastinum to the right side. A cut off of the right main stem bronchus is seen and findings are suspicious for near complete obstruction of the right main bronchus. This may be related to interim mucous plugging in this patient with known extensive mediastinal and right hilar mass. Close clinical correlation is requested. Dr Ocampo and Dr. Dimaond recommended aggressive chest PT, with mucomyst bid X 3 days, left lung down position. Repeat cxr in PM. Received last dose of ceftriaxone this am, will get ceftin starting tomorrow. Pt ordered as pt was independent on admission and now seems weak and require assitance with ambulation. Review of Systems Constitutional: Reports: see HPI. Objective Last 24 Hrs of Vital Signs/I&O Vital Signs Date Time Temp Pulse Resp B/P Pulse O2 O2 Flow FiO2 Ox Delivery Rate 01/25 1216 80 134/60 01/25 0815 98.6 86 20 122/68 94 Nasal 55% Cannula 01/25 0800 92 Nasal 55% Cannula 01/25 0530 100 128/64 01/25 0227 94 Nasal 55% Cannula 01/25 0000 Nasal 55% Cannula 01/24 2310 98.0 107 20 130/66 93 Nasal 55% Cannula 01/24 2252 101 132/66 01/24 1629 97 122/70 01/24 1609 97.3 97 18 12270 94 Nasal 65% Cannula Intake & Output 01/25 1600 01/25 0800 01/25 0000 Intake Total 250 250 Output Total Balance 250 250 Intake, IV 0 0 Intake, Oral 250 250 Number 0 1 Bowel Movements Physical Exam General Appearance: Alert, Oriented X3, Cooperative, No Acute Distress Skin: No Significant Lesion Cardiovascular: Regular Rate, Normal S1, Normal S2 Lungs: dec breath sounds on the right Abdomen: Normal Bowel Sounds, Soft, No Tenderness Extremities: 2+ pitting edema bilaterally Current Medications: Current Medications Sig/Walter Start time Last Medication Dose Route Stop Time Status Admin Acetaminophen 650 MG Q6P PRN 01/20 1115 AC PO Acetylcysteine 2 ML BID 01/25 1330 AC INH Albuterol Sulfate 3 ML BID 01/25 2200 AC INH Ceftriaxone Sodium 1,000 MG DAILY 01/21 2200 DC 01/25 IV 0926 Cefuroxime Sodium 250 MG Q12 01/26 1000 AC PO Diltiazem HCl 30 MG Q6 01/21 1200 AC 01/25 PO 01/27 1400 1216 Guaifenesin 600 MG Q12 01/25 1330 CAN PO Guaifenesin 600 MG Q12 01/21 1459 AC 01/25 PO 0907 Heparin Sodium 5,000 UNIT Q8 01/21 1400 AC 01/25 (Porcine) SC 0530 Hydromorphone HCl 0.5 MG Q4P PRN 01/20 1115 AC 01/22 IV 0229 Nystatin 5 ML 4 TIMES/DAY 01/22 1100 AC 01/25 PO 0927 Oxycodone/ 1 TAB Q6P PRN 01/20 1115 AC Acetaminophen PO Prednisone 40 MG DAILY 01/24 1000 AC 01/25 PO 01/28 1001 0907 Last 24 Hrs of Lab/Jordy Results Last 24 Hrs of Labs/Mics: Laboratory Tests 01/25/17 0515: Anion Gap 6, Estimated GFR > 60, BUN/Creatinine Ratio 38.2 H, CBC w Diff MAN DIFF ORDERED, RBC 3.67 L, MCV 99.5 H, MCH 33.3 H, RDW 19.3 H, MPV 10.2, Gran % 96.3 H, Lymphocytes % 1.8 L, Monocytes % 1.7, Eosinophils % 0.2, Basophils % 0 L, Absolute Granulocytes 25.5 H, Segmented Neutrophils 89 H, Band Neutrophils 5, Absolute Lymphocytes 0.5 L, Lymphocytes 4 L, Monocytes 2, Absolute Monocytes 0.4, Absolute Eosinophils 0, Absolute Basophils 0, Platelet Estimate ADEQUATE, Normocytic RBCs VERIFIED, Normochromic RBCs VERIFIED, PUBS MCHC 33.4 Assessment/Plan Assessment: This is a 76-year-old male with a past medical history of rheumatoid arthritis on methotrexate therapy, recently diagnosis metastatic lesion to the liver 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 The patient is being treated in the hospital for obstructive pneumonia after failing an outpatient therapy with levofloxacin. Assessment 1. Acute hypoxic respiratory failure likely secondary to pneumonia 2. Lung cancer carcinoma(no tissue biopsy as refused by the patient) 3. Metastatic lesion to the liver 4. Questionable supraventricular tachycardia at the time of admission but now in sinus tachycardia 5. History of rheumatoid arthritis on chronic prednisone and methotrexate therapy 6. Acute kidney injury likely prerenal as ischemia 7. Elevated troponin secondary to type II ischemia 8.Gram positive Cocci in chain Bacteremia Plan Chest PT with mucomyst bid, left lung down positioning Follow up repeat CXR at 6pm We will continue telemetry monitoring for bouts of SVT-this is resolved when the patient is currently in normal sinus rhythm consider discontinuing telemetry in the next 24 hours if there are no new events Heart rate well controlled on by mouth Cardizem. This needs to be consulted with the cardiology staff plastic surgeon and can be converted to long-acting Cardizem, 120 mg CD IV fluids discontinued as the patient is eating well Oncology staff, Dr. Mclain contacted and the patient is to go undergo liver biopsy on Thursday. Pt NPO after midnight. Appreciate pulmonology and cardiology input. Blood cultures grew strep pneumo await sensitivities and can switch to by mouth Augmentin if sensitive --> last dose of ceftriaxone given 01/25, ceftin starting 01/26 Repeat blood cultures remain negative Strep and Legionella antigen in the urine negative Switch to by mouth prednisone 40 mg for 5 days Patient wishes to be treated conservatively and does not point any heroic measures. DNR/DNI Subcutaneous heparin for DVT prophylaxis now Plan for a liver biopsy under IR guidance on Thursday. Problem List: 1. Obstructive pneumonia Pain Ratin Pain Location: none Pain Goal: Remain pain free Pain Plan: none Tomorrow's Labs & Rationales: cbc for leukocytosis DVT/Prophylaxis: mechanical, pharmacological
[2017-01-25 08:15] VITALS: BP 122/68
--- NOTE | 2017-01-25 11:59 | PN- Att Addend ---
See Addendum Attending Addendum Attending Brief Note Patient reports no complaints this morning. Continues to require high flow oxygen. General Appearance: Awake and alert Skin: Grossly normal HEENT: PEERLA Neck: Supple, No JVD Cardiovascular: Regular Rate, Normal S1, Normal S2, No Murmurs Lungs: Decreased air entry right lung Abdomen: Normal Bowel Sounds, Soft, No Tenderness Extremities: Pedal edema Assessment Strep pneumonia sepsis sensitive to penicillin currently on ceftriaxone. Worsening leukocytosis likely secondary to prednisone otherwise patient looks clinically stable. Kidney function and LFTs have improved. This point will continue current care however prognosis appears poor. Plan Change to Ceftin in a.m. Prednisone taper Continue respiratory care Continue supportive care DNI/DNR Current Medications Sig/Walter Start time Last Medication Dose Route Stop Time Status Admin Acetaminophen 650 MG Q6P PRN 01/20 1115 AC PO Ceftriaxone Sodium 1,000 MG DAILY 01/21 2200 AC 01/25 IV 0926 Diltiazem HCl 30 MG Q6 01/21 1200 AC 01/25 PO 01/27 1400 0530 Guaifenesin 600 MG Q12 01/21 1459 AC 01/25 PO 0907 Heparin Sodium 5,000 UNIT Q8 01/21 1400 AC 01/25 (Porcine) SC 0530 Hydromorphone HCl 0.5 MG Q4P PRN 01/20 1115 AC 01/22 IV 0229 Nystatin 5 ML 4 TIMES/DAY 01/22 1100 AC 01/25 PO 0927 Oxycodone/ 1 TAB Q6P PRN 01/20 1115 AC Acetaminophen PO Prednisone 40 MG DAILY 01/24 1000 AC 01/25 PO 01/28 1001 0907 Laboratory Tests 01/25 0515 Chemistry Sodium (137 - 145 mmol/L) 143 Potassium (3.5 - 5.1 mmol/L) 4.5 Chloride (98 - 107 mmol/L) 106 Carbon Dioxide (22 - 30 mmol/L) 31 H Anion Gap (5 - 16) 6 BUN (9 - 20 mg/dL) 42 H Creatinine (0.7 - 1.2 mg/dL) 1.1 Estimated GFR (>60 ml/min) > 60 BUN/Creatinine Ratio (7 - 25 %) 38.2 H Hematology CBC w Diff MAN DIFF ORDERED WBC (4.8 - 10.8 /CUMM) 26.4 H RBC (4.70 - 6.10 /CUMM) 3.67 L Hgb (14.0 - 18.0 G/DL) 12.2 L Hct (42 - 52 %) 36.5 L MCV (80.0 - 94.0 FL) 99.5 H MCH (27.0 - 31.0 PG) 33.3 H RDW (11.5 - 14.5 %) 19.3 H Plt Count (130 - 400 /CUMM) 159 MPV (7.4 - 10.4 FL) 10.2 Gran % (42.2 - 75.2 %) 96.3 H Lymphocytes % (20.5 - 51.1 %) 1.8 L Monocytes % (1.7 - 9.3 %) 1.7 Eosinophils % (0 - 5 %) 0.2 Basophils % (0.0 - 2.0 %) 0 L Absolute Granulocytes (1.4 - 6.5 /CUMM) 25.5 H Segmented Neutrophils (42.2 - 75.2 %) 89 H Band Neutrophils (0.0 - 5.0 %) 5 Absolute Lymphocytes (1.2 - 3.4 /CUMM) 0.5 L Lymphocytes (20.5 - 51.1 %) 4 L Monocytes (1.7 - 9.3 %) 2 Absolute Monocytes (0.10 - 0.60 /CUMM) 0.4 Absolute Eosinophils (0.0 - 0.7 /CUMM) 0 Absolute Basophils (0.0 - 0.2 /CUMM) 0 Platelet Estimate (ADEQUATE) ADEQUATE Normocytic RBCs VERIFIED Normochromic RBCs VERIFIED PUBS MCHC (33.0 - 37.0 G/DL) 33.4 Vital Signs Date Time Temp Pulse Resp B/P Pulse O2 O2 Flow FiO2 Ox Delivery Rate 01/25 0815 98.6 86 20 122/68 94 Nasal 55% Cannula 01/25 0530 100 128/64 01/25 0227 94 Nasal 55% Cannula 01/25 0000 Nasal 55% Cannula 01/24 2310 98.0 107 20 130/66 93 Nasal 55% Cannula 01/24 2252 101 132/66 01/24 1629 97 122/70 01/24 1609 97.3 97 18 122/70 94 Nasal 65% Cannula
--- NOTE | 2017-01-25 12:07 | PN- Pulmonary ---
See Addendum Subjective HPI/Critical Care Issues: pt seen and examined afebrile hemodynamically stable high flow at 55% fio2 Objective Current Medications: Current Medications Sig/Walter Start time Last Medication Dose Route Stop Time Status Admin Acetaminophen 650 MG Q6P PRN 01/20 1115 AC PO Ceftriaxone Sodium 1,000 MG DAILY 01/21 2200 AC 01/25 IV 0926 Diltiazem HCl 30 MG Q6 01/21 1200 AC 01/25 PO 01/27 1400 0530 Guaifenesin 600 MG Q12 01/21 1459 AC 01/25 PO 0907 Heparin Sodium 5,000 UNIT Q8 01/21 1400 AC 01/25 (Porcine) SC 0530 Hydromorphone HCl 0.5 MG Q4P PRN 01/20 1115 AC 01/22 IV 0229 Nystatin 5 ML 4 TIMES/DAY 01/22 1100 AC 01/25 PO 0927 Oxycodone/ 1 TAB Q6P PRN 01/20 1115 AC Acetaminophen PO Prednisone 40 MG DAILY 01/24 1000 AC 01/25 PO 01/28 1001 0907 Vital Signs & I&O Last 24 Hrs of Vitals and I&O: Vital Signs Date Time Temp Pulse Resp B/P Pulse O2 O2 Flow FiO2 Ox Delivery Rate 01/25 0815 98.6 86 20 122/68 94 Nasal 55% Cannula 01/25 0530 100 128/64 01/25 0227 94 Nasal 55% Cannula 01/25 0000 Nasal 55% Cannula 01/24 2310 98.0 107 20 130/66 93 Nasal 55% Cannula 01/24 2252 101 132/66 01/24 1629 97 122/70 01/24 1609 97.3 97 18 12270 94 Nasal 65% Cannula Intake & Output 01/25 1600 01/25 0800 01/25 0000 Intake Total 250 250 Output Total Balance 250 250 Intake, IV 0 0 Intake, Oral 250 250 Number 0 1 Bowel Movements Exam Other Physical Findings: gen awake, alert heent high flow o2 cvs s1, s2 lungs rare rhonchi, diminished bs abd soft bs+ ext edematous Results Last 24 Hrs of Lab Results: Laboratory Tests 01/25/17 0515: Anion Gap 6, Estimated GFR > 60, BUN/Creatinine Ratio 38.2 H, CBC w Diff MAN DIFF ORDERED, RBC 3.67 L, MCV 99.5 H, MCH 33.3 H, RDW 19.3 H, MPV 10.2, Gran % 96.3 H, Lymphocytes % 1.8 L, Monocytes % 1.7, Eosinophils % 0.2, Basophils % 0 L, Absolute Granulocytes 25.5 H, Segmented Neutrophils 89 H, Band Neutrophils 5, Absolute Lymphocytes 0.5 L, Lymphocytes 4 L, Monocytes 2, Absolute Monocytes 0.4, Absolute Eosinophils 0, Absolute Basophils 0, Platelet Estimate ADEQUATE, Normocytic RBCs VERIFIED, Normochromic RBCs VERIFIED, PUBS MCHC 33.4 Impression/Plan Impression/Plan Impression/Plan: Impression 76 year old man Acute hypoxemic respiratory failure, obstructive pna is considered as likely cause, streptococcal bacteremia Metastatic ca with mets to liver transaminitis leukocytosis Plan -cont to reduce fio2 requirements as tolerated -workup for liver lesions per primary team -cont abx at this time -steroid taper as ordered DVT prophylaxis at all times
--- NOTE | 2017-01-25 13:10 | RADIOLOGY REPORT ---
EXAMINATION: XR PORTABLE CHEST CLINICAL INFORMATION: Cough and dyspnea. Presumptive diagnosis of obstructive pneumonia. COMPARISON: Several prior chest x-rays, most recent of which is dated 01/20/2017. CT scan of the chest dated 01/20/2017. TECHNIQUE: Portable AP semierect view of the chest was obtained. FINDINGS: There is now near complete opacification and volume loss seen in the right hemithorax with shift of the mediastinum toward the right side. Only a small amount of aeration remains in the right upper lung. Complete cut off of the right main stem bronchus is seen. Suspect small right-sided pleural fluid. The left lung is fully inflated and aside from minimal basilar subsegmental atelectasis is unremarkable. No left-sided effusion is seen. A right subclavian PICC line is in place with tip in the distal SVC. The cardiomediastinal silhouette is obscured by the above described process. IMPRESSION: 1. Progressive volume loss and consolidation in right lung with shift of mediastinum to the right side. A cut off of the right main stem bronchus is seen and findings are suspicious for near complete obstruction of the right main bronchus. This may be related to interim mucous plugging in this patient with known extensive mediastinal and right hilar mass. Close clinical correlation is requested. 2. Persistent small right pleural effusion again seen. Findings discussed with Dr. Ocampo, 01/25/2017, 1:00 PM.
[2017-01-25 17:20] VITALS: BP 130/60
--- NOTE | 2017-01-25 22:40 | RADIOLOGY REPORT ---
EXAMINATION: XR PORTABLE CHEST CLINICAL INFORMATION: Right-sided opacification COMPARISON: Chest x-ray 02/22/2017 TECHNIQUE: Portable AP view of the chest was obtained. FINDINGS: There is stable complete opacification throughout the right hemithorax with mediastinal shift to the right side. Stable cut off of the right mainstem bronchus. Right pleural effusion is stable. Diffuse interstitial opacities throughout the left lung with more hazy airspace opacity at the left lung base remain stable. Right PICC line tip is again noted to terminate near the cavoatrial junction. Cardiac silhouette and osseous structures are stable. Gas distended bowel within the left upper quadrant. IMPRESSION: Stable radiographic appearance of the chest demonstrating near complete opacification of the right hemithorax and rightward mediastinal shift with cut off/obstruction of the right mainstem bronchus. Associated right pleural effusion is stable.
[2017-01-26 00:50] VITALS: BP 140/70
--- NOTE | 2017-01-26 07:27 | PN- Housestaff ---
Subjective Follow-up For: Obstructive pneumonia Metastatic lesions to liver and lungs Complaints: NO SPECIFIC COMPLAINTS BUT THE PATIENT LOOKS IN RESPIRATORY DISTRESS. Subjective: The patient is in mild distress and has been having exertional breathing. Review of Systems Constitutional: Reports: see HPI. Objective Last 24 Hrs of Vital Signs/I&O Vital Signs Date Time Temp Pulse Resp B/P Pulse O2 O2 Flow FiO2 Ox Delivery Rate 01/26 0606 82 140/70 01/26 0131 94 Nasal 55% Cannula 01/26 0050 97.8 53 28 140/70 93 Nasal Cannula 01/26 0000 96 Nasal 55% Cannula 01/25 2356 96 130/60 01/25 2237 94 Nasal 55% Cannula 01/25 1925 90 Nasal 55% Cannula 01/25 1756 85 130/60 01/25 1720 98.0 80 20 130/60 93 Nasal Cannula 01/25 1645 93 Nasal 55% Cannula 01/25 1600 93 Nasal 55% Cannula 01/25 1354 Nasal 55% Cannula 01/25 1216 80 134/60 01/25 0815 98.6 86 20 122/68 94 Nasal 55% Cannula 01/25 0800 92 Nasal 55% Cannula Intake & Output 01/26 0800 01/26 0000 01/25 1600 Intake Total 480 44 520 Output Total 225 275 Balance 480 -181 245 Intake, Oral 480 44 520 Number 1 Bowel Movements Output, Urine 225 275 Physical Exam General Appearance: Alert, Oriented X3 Skin: No Rashes, No Breakdown HEENT: Atraumatic, PERRLA Neck: Supple, No JVD Lymphatic: Axillary nl, Cervical nl Cardiovascular: Normal S1, Normal S2 Lungs: BILATERAL DECREASED AIR ENTRY AND BILATERAL CRACKLES AND RHONCHI Abdomen: Soft, No Tenderness Neurological: Normal Gait, Normal Speech Assessment/Plan Assessment: This is a 76-year-old male with a past medical history of rheumatoid arthritis on methotrexate therapy, recently diagnosis metastatic lesion to the liver 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 The patient is being treated in the hospital for obstructive pneumonia after failing an outpatient therapy with levofloxacin. Assessment 1. Acute hypoxic respiratory failure likely secondary to pneumonia 2. Lung cancer carcinoma(no tissue biopsy as refused by the patient) 3. Metastatic lesion to the liver 4. Questionable supraventricular tachycardia at the time of admission but now in sinus tachycardia 5. History of rheumatoid arthritis on chronic prednisone and methotrexate therapy 6. Acute kidney injury likely prerenal as ischemia 7. Elevated troponin secondary to type II ischemia 8.Gram positive Cocci in chain Bacteremia Plan Patient is currently on high flow oxygen, but not saturating well. We will continue telemetry monitoring for bouts of SVT-this is resolved when the patient is currently in normal sinus rhythm consider discontinuing telemetry in the next 24 hours if there are no new events Heart rate well controlled on by mouth Cardizem. This needs to be consulted with the cardiology staff phone engineer and can be converted to long-acting Cardizem, 120 mg CD IV fluids discontinued as the patient is eating well We will defer liver biopsy at this point, await family discussion for possible transition to hospice service. Appreciate pulmonology and cardiology input. Blood cultures grew strep pneumo await sensitivities and can switch to by mouth Augmentin if sensitive --> last dose of ceftriaxone given 01/25, ceftin starting 01/26 Repeat blood cultures remain negative Strep and Legionella antigen in the urine negative Switch to by mouth prednisone 40 mg for 5 days Patient wishes to be treated conservatively and does not point any heroic measures. DNR/DNI Subcutaneous heparin for DVT prophylaxis now The patient's goal of care needs to be readdressed I had a long discussion with the patient's stepdaughter son, and the knees who unanimously agreed with the patient's wishes of being conservative management they do not want to us to pursue the liver biopsy and want to make the patient comfort table. They also want to get a hospice evaluation and opting for inpatient hospice given the choice. Problem List: 1. Elevated troponin 2. Acute prerenal azotemia 3. SVT (supraventricular tachycardia) Pain Ratin Pain Location: None Pain Goal: Remain pain free Pain Plan: . tYLENOL NEEDED Tomorrow's Labs & Rationales: No need
[2017-01-26 08:22] LABS: PT 11.8 SEC (9.4-12.5)
[2017-01-26 08:35] VITALS: BP 132/64
[2017-01-26 09:13] LABS: ABSOLUTE BASOPHIL COUNT 0 /CUMM (0.0-0.2); ABSOLUTE EOSINOPHIL COUNT 0 /CUMM (0.0-0.7); ABSOLUTE GRANULOCYTE CT 28.5 /CUMM (1.4-6.5); ABSOLUTE LYMPH COUNT 0.5 /CUMM (1.2-3.4); ABSOLUTE MONOCYTE COUNT 0.6 /CUMM (0.10-0.60); BASOPHIL % 0 % (0.0-2.0); EOSINOPHIL % 0 % (0-5); GRANULOCYTE % 96.3 % (42.2-75.2); HEMATOCRIT 37.4 % (42-52); MEAN CORPUSCULAR HGB 33.1 PG (27.0-31.0); MEAN CORPUSCULAR HGB CONC 32.9 G/DL (33.0-37.0); MEAN CORPUSCULAR VOLUME 100.6 FL (80.0-94.0); MEAN PLATELET VOLUME 10.3 FL (7.4-10.4); PLATELET COUNT 184 /CUMM (130-400); RBC DISTRIBUTION WIDTH 19.4 % (11.5-14.5); RED BLOOD CELL CT 3.72 /CUMM (4.70-6.10); WHITE BLOOD CELL COUNT 29.6 /CUMM (4.8-10.8)
--- NOTE | 2017-01-26 10:39 | PN- Att Addend ---
Attending Addendum Attending Brief Note Condition deteriorated over the weekend today less responsive and some respiratory distress oxygen is on by the chest x-ray showed a complete opacification of the lung patient in no condition to have any interventional procedures and also the patient and her family wish no heroics no more procedures and patient will be on comfort care. In addition is poor prognosis is poor. Intake & Output 01/26 1600 01/26 0800 01/26 0000 Intake Total 480 44 Output Total 225 Balance 480 -181 Intake, Oral 480 44 Number 1 Bowel Movements Output, Urine 225 Current Medications Sig/Walter Start time Last Medication Dose Route Stop Time Status Admin Acetaminophen 650 MG Q6P PRN 01/20 1115 AC PO Acetylcysteine 2 ML BID 01/25 1330 AC 01/25 INH 1925 Albuterol Sulfate 3 ML BID 01/25 2200 AC 01/26 INH 1007 Ceftriaxone Sodium 1,000 MG DAILY 01/21 2200 DC 01/25 IV 0926 Cefuroxime Sodium 250 MG Q12 01/26 1000 CAN PO Diltiazem HCl 30 MG Q6 01/21 1200 AC 01/26 PO 01/27 1400 0606 Guaifenesin 600 MG Q12 01/25 1330 CAN PO Guaifenesin 600 MG Q12 01/21 1459 DC 01/25 PO 2059 Heparin Sodium 5,000 UNIT Q8 01/21 1400 DC 01/25 (Porcine) SC 01/25 2300 2059 Hydromorphone HCl 0.5 MG Q4P PRN 01/20 1115 AC 01/22 IV 0229 Nystatin 5 ML 4 TIMES/DAY 01/22 1100 AC 01/26 PO 0958 Oxycodone/ 1 TAB Q6P PRN 01/20 1115 AC Acetaminophen PO Prednisone 40 MG DAILY 01/24 1000 DC 01/25 PO 01/28 1001 0907 Scopolamine HBr 1 PAT Q72H 01/26 0845 AC 01/26 TOP 0945 Laboratory Tests 01/26 01/26 0818 0610 Chemistry Ammonia Cancelled Coagulation PT (9.4 - 12.5 SEC) 11.8 INR (0.90 - 1.17) 1.13 Hematology CBC w Diff MAN DIFF ORDERED WBC (4.8 - 10.8 /CUMM) 29.6 H RBC (4.70 - 6.10 /CUMM) 3.72 L Hgb (14.0 - 18.0 G/DL) 12.3 L Hct (42 - 52 %) 37.4 L MCV (80.0 - 94.0 FL) 100.6 H MCH (27.0 - 31.0 PG) 33.1 H RDW (11.5 - 14.5 %) 19.4 H Plt Count (130 - 400 /CUMM) 184 MPV (7.4 - 10.4 FL) 10.3 Gran % (42.2 - 75.2 %) 96.3 H Lymphocytes % (20.5 - 51.1 %) 1.7 L Monocytes % (1.7 - 9.3 %) 2.0 Eosinophils % (0 - 5 %) 0 Basophils % (0.0 - 2.0 %) 0 L Absolute Granulocytes (1.4 - 6.5 /CUMM) 28.5 H Segmented Neutrophils (42.2 - 75.2 %) 85 H Band Neutrophils (0.0 - 5.0 %) 5 Absolute Lymphocytes (1.2 - 3.4 /CUMM) 0.5 L Lymphocytes (20.5 - 51.1 %) 4 L Monocytes (1.7 - 9.3 %) 1 L Absolute Monocytes (0.10 - 0.60 /CUMM) 0.6 Absolute Eosinophils (0.0 - 0.7 /CUMM) 0 Absolute Basophils (0.0 - 0.2 /CUMM) 0 Metamyelocytes (0.0 - 1.0 %) 4 H Myelocytes (0 - 0 %) 1 H Platelet Estimate (ADEQUATE) VERIFIED BY SMEAR Anisocytosis 1+ Macrocytic Cells 1+ PUBS MCHC (33.0 - 37.0 G/DL) 32.9 L
--- NOTE | 2017-01-26 13:31 | PN- Pulmonary ---
Subjective HPI/Critical Care Issues: The patient is in sig distress and has been having agonal breathing. Review of Systems Constitutional: Reports: see HPI. Objective Current Medications: Current Medications Sig/Walter Start time Last Medication Dose Route Stop Time Status Admin Acetaminophen 650 MG Q6P PRN 01/20 1115 AC PO Acetylcysteine 2 ML BID 01/25 1330 DC 01/25 INH 1925 Albuterol Sulfate 3 ML BID 01/25 2200 AC 01/26 INH 1007 Cefuroxime Sodium 250 MG Q12 01/26 1000 CAN PO Diltiazem HCl 30 MG Q6 01/21 1200 DC 01/26 PO 01/27 1400 0606 Guaifenesin 600 MG Q12 01/21 1459 DC 01/25 PO 2059 Heparin Sodium 5,000 UNIT Q8 01/21 1400 DC 01/25 (Porcine) SC 01/25 2300 2059 Hydromorphone HCl 0.5 MG Q4P PRN 01/20 1115 AC 01/22 IV 0229 Nystatin 5 ML 4 TIMES/DAY 01/22 1100 AC 01/26 PO 0958 Oxycodone/ 1 TAB Q6P PRN 01/20 1115 AC Acetaminophen PO Prednisone 40 MG DAILY 01/24 1000 DC 01/25 PO 01/28 1001 0907 Scopolamine HBr 1 PAT Q72H 01/26 0845 AC 01/26 TOP 0945 Vital Signs & I&O Last 24 Hrs of Vitals and I&O: Vital Signs Date Time Temp Pulse Resp B/P Pulse O2 O2 Flow FiO2 Ox Delivery Rate 01/26 1010 92 Nasal 65% Cannula 01/26 0844 92 Nasal 50% Cannula 01/26 0835 97.5 82 17 132/64 91 Nasal Cannula 01/26 0606 82 140/70 01/26 0131 94 Nasal 55% Cannula 01/26 0050 97.8 53 28 140/70 93 Nasal Cannula 01/26 0000 96 Nasal 55% Cannula 01/25 2356 96 130/60 01/25 2237 94 Nasal 55% Cannula 01/25 1925 90 Nasal 55% Cannula 01/25 1756 85 130/60 01/25 1720 98.0 80 20 130/60 93 Nasal Cannula 01/25 1645 93 Nasal 55% Cannula 01/25 1600 93 Nasal 55% Cannula 01/25 1354 Nasal 55% Cannula Intake & Output 01/26 1600 01/26 0800 01/26 0000 Intake Total 480 44 Output Total 225 Balance 480 -181 Intake, Oral 480 44 Number 1 Bowel Movements Output, Urine 225 Impression/Plan Impression/Plan Impression/Plan: Physical Exam General Appearance Oriented X3, Cooperative, Moderate Distress Skin No Breakdown HEENT Atraumatic, PERRLA, EOMI Neck No JVD, No thryomegaly Lymphatic Axillary nl, Cervical nl Cardiovascular Normal S1, Normal S2 Lungs bilateral decreased airway entry and diminished breath sounds Abdomen Soft, No Tenderness Neurological Strength at 5/5 X4 Ext Extremities No Cyanosis, No Edema IMPRESSION: 1. Redemonstrated intrathoracic findings suspicious for malignancy, including a subcarinal mass likely extending into the right hilum, as well as additional mediastinal lymphadenopathy. 2. In comparison to 01/09/2017, there is increasing airspace opacification throughout the right lower and middle lobes. Redemonstrated narrowing of the central airways in the right middle and lower lobe raise the possibility that this opacification could represent postobstructive inflammation/pneumonia. Underlying mass and/or regions of atelectasis are difficult to exclude in the absence of intravenous contrast. 3. Multiple scattered subcentimeter nodules bilaterally, similar to 01/09/2017. Extensive upper lobe predominant emphysema. 4. Redemonstrated, loculated appearing lateral right basilar pleural effusion. 5. Probable hepatic mass, not adequately assessed in the absence of intravenous contrast. 6. Redemonstrated superior L1 compression deformity, similar to prior. Blood culture positive for gram positive cocci IMPRESSION 1. Worsening Acute hypoxic respiratory failure most likely secondary to obstructive pneumonia(after failure to the outpatient therapy with levofloxacin) . patient has strep pneumo bacteremia and sepsis 2. Metastatic disease with extensive liver mets now with sig met acidosis due to hepatic dysfunction and sepsis 3. Sig PNa Post obstructive with Pleural mets with lung collapse with resp failure 4. Altered lfts due to prob liver mets 5 History of rheumatoid arthritis and hence immunosuppresed 7. Wide complex tachycardia status post 1 dose of 6 mg IV ADENOSINE IN ER now resolved with non-ST segment elevation LA with demand ischemia 7. lactic acidosis resolved 8. MASHA likley-prerenal resolved REC Pt is unfortunately deteriorating Due to worsening malignancy of his lung disease seems to be having significant collapse of his right lung and his respiratory failure is worsening Per his previous wishes patient should be made comfort and transition to hospice Prognosis is poor Previous discussion with the family had he lived the same finding Prognosis poor
--- NOTE | 2017-01-26 13:59 | Patient Discharge Instructions ---
Discharge Instructions General Discharge Information You were seen/treated for: HYPXIAC RESPIRATORY FAILURE Special Instructions: PLEASE F/U WITH FRANCISCO JAVIER Acute Coronary Syndrome Inclusion Criteria At DC or during hospital stay patient has or had the following: ACS DIAGNOSIS No Discharge Core Measures Meds if any: Prescribed or Continued at Discharge Meds if any: NOT Prescribed or Continued at Discharge Congestive Heart Failure Inclusion Criteria At DC or during hospital stay patient has or had the following: CHF DIAGNOSIS No Discharge Core Measures Meds if any: Prescribed or Continued at Discharge Meds if any: NOT Prescribed or Continued at Discharge Cerebrovascular accident Inclusion Criteria At DC or during hospital stay patient has or had the following: CVA/TIA Diagnosis No Discharge Core Measures Meds if any: Prescribed or Continued at Discharge Meds if any: NOT Prescribed or Continued at Discharge Venous thromboembolism Inclusion Criteria VTE Diagnosis No VTE Type NONE VTE Confirmed by (Test) NONE Discharge Core Measures - Per Current guidelines, there needs to be overlap - treatment for the first 5 days of Warfarin therapy. - If discharged on Warfarin prior to 5 days of - overlap therapy, the patient will need to be - assessed for post discharge needs including - *Post discharge parental anticoagulation - *Warfarin and/or parental anticoagulation education - *Follow up date to check INR post discharge At least 5 days overlap therapy as Inpatient No Meds if any: Prescribed or Continued at Discharge Note: Overlap Therapy is Warfarin and Anticoagulant Meds if any: NOT Prescribed or Continued at Discharge
== END 2017-01-26 14:20 | disposition hospice, home (50) | DRG 871 ==
LOC: ENRESERVTM → ENRESERVDT → ERH 08:35 → 1NO 09:38 → ERHI 09:38 → 1NO 12:36
PROVIDERS: Emergency Medicine; Internal Medicine Nephrology; Radiology Diagnostic Radiology; ADMIT Internal Medicine
DX: A40.3 Sepsis due to Streptococcus pneumoniae (principal); J18.8 Other pneumonia, unspecified organism; J96.01 Acute respiratory failure with hypoxia; N17.9 Acute kidney failure, unspecified; E87.4 Mixed disorder of acid-base balance; C34.91 Malignant neoplasm of unspecified part of right bronchus or lung; C78.2 Secondary malignant neoplasm of pleura; C78.7 Secondary malignant neoplasm of liver and intrahepatic bile duct; Z51.5 Encounter for palliative care; K72.90 Hepatic failure, unspecified without coma; Z87.891 Personal history of nicotine dependence
CPT/HCPCS: 1NP; 87184; 36415; 81001; 82436; 87040; 87070; 87147; 87449; 87450; 93005; 93010; 93306; 93970; 96361; 96365; 96374; 96375; 99291; C1769; J0153; J0456; J0696; J0713; J1644; J1650; J2920; J2930; J3370; J7042; J7060; J7608

== ENCOUNTER 2017-01-26 14:27 | Inpatient (IN) | payer OTHER ==
[2017-01-26 16:23] VITALS: BP 120/60
--- NOTE | 2017-01-26 16:40 | PN- Att Addend ---
Attending Addendum Attending Brief Note Hospice Admission H&P Chief Complaint: Admit to hospice Source: Medical records, pt Exam Limitations: clinical condition Associated Symptoms: dyspnea, congestion History of Present Illness: This is a 76-year-old male with a past medical history of hypertension, rheumatoid arthritis, former smoker, who presented to the emergency department for worsening shortness of breath and altered mental status. The patient was recently seen in emergency department [facility] on 01/09/2017 when the patient had a mechanical fall and family brought the patient to the ER for suspicion of rib fractures but the CAT scan and the imaging done at that time showed an incidental finding of probable metastatic lesion in the lungs and suspicious mass on the liver. The patient was previously scheduled for a liver biopsy on the day he was admitted. Pt also completed 10 day course of levofloxacin on 01/07/17 for COPD exacerbation but his symptoms did not fully resolve. Initially in the ER, pts O2 saturation was 77% and on examination was found to have "Bluish grayish discoloration" around the perioral area. The patient was also found to have peripheral cyanosis of hands. Patient also noted to have significant postobstructive pneumonia, transaminitis, wide-complex tachycardia in the ER requiring IV adenosine, lactic acidosis, gram -positive bacteremia. The patient was initially started on broad-spectrum antibiotics vancomycin and ceftazidime along with the stress dose of Solu- Medrol. This was then later tapered and narrowed down to ceftriaxone and azithromycin. The patient remained on high flow oxygen throughout his stay in the hospital. The patient did not respond well to the antibiotics and steroids, and the repeat chest x-ray shows a complete collapse of the right lung secondary to obstruction and most likely metastatic cancer spread. The patient's family and the patient himself decided against any aggressive measures, tissue biopsy or further workup regarding the cancer management. At this point patient was then made comfort care and hospice evaluation was consulted who recommended that the patient would be an appropriate candidate for inpatient hospice. Allergies: Sulfa Review of Systems: Positive for dyspnea and congestion, lethargy. Patient denies pain. Past Medical History: Rheumatoid arthritis, COPD, HTN Past Surgical History: Noncontributory Family History: Noncontributory Psychosocial History: Patient had been living at home, primary caregiver for with advanced dementia. 3 living stepchildren. Stepdaughter Tamiko is HCR. Former smoker, quit 9 months ago. Functional Ability: Currently dependent. Exam and Diagnostic Data: Vital signs: T-97.5; HR-82; RR-17; BP-132/64; O2 sat 91% on 50% high flow O2 Physical Exam: General: Minimally responsive, chronically ill appearing male, no acute distress. Skin: Warm and dry. Ecchymosis to bilateral upper extremities. HEENT: Normocephalic and atraumatic. Pupils equal and reactive to light. Oral mucosa dry. Neck: negative JVD. Heart: S1-S2, no murmur appreciated. Lungs: Unlabored, congestion noted. High flow nasal O2 in place. Abdomen: Soft and nontender. Positive bowel sounds. Extremities: No clubbing, cyanosis; 12 plus bilateral pedal edema. Neuro/Psych: Lethargic, minimal interaction. Responsive to verbal stimuli. Labs/Imaging: CT of abdomen and pelvis 01/09/2017: Constellation of findings within the chest suspicious for malignancy, including a large subcarinal mass with esophageal luminal narrowing, as well as right hilar adenopathy with bronchial narrowing. Additional scattered lymph nodes are described as above. There is abnormal interstitial/reticular markings within the right lung with fairly extensive pleural thickening/nodularity. Comparison to prior cross-sectional studies would be useful. Bronchoscopy may be considered for additional assessment. Underlying emphysematous change is evident bilaterally, with scattered bilateral pulmonary nodules measuring up to 6 mm. 3. Vague 3.6 cm hypoattenuating region within the liver may also reflect neoplasm. Nonspecific bilateral nodularity of both adrenal glands. 4. Abrupt caliber change of the colon at the splenic flexure. Correlation with colonoscopy is recommended. 5. Nonspecific, asymmetric 1.2 cm left inguinal lymph node. 6. Fusiform dilatation of the infrarenal abdominal aorta measuring up to 2.6 cm. Addendum: Of note, the liver is diffusely heterogeneous and there are probably multiple masses visualized within the liver. Chest x-ray on 01/25/2017: Stable radiographic appearance of the chest demonstrating near complete opacification of the right hemithorax and rightward mediastinal shift with cut off/obstruction of the right mainstem bronchus. Associated right pleural effusion is stable. CBC with WBC 29.6, Hgb 12.3, HCT 37.4, platelets 184, granulocytes 96.3 Chemistries with BUN 42, creatinine 1.1, AST 96, ALT 234, alkaline phosphatase 438 Blood cultures positive for strep pneumonia Assessment/Plan: 76-year-old male with past medical history of rheumatoid arthritis, COPD with recent antibiotic treatment for exacerbation admitted with acute hypoxic respiratory failure in setting of recently discovered masses in the lung and liver highly suspicious for carcinoma/metastatic disease. Patient also with gram-positive bacteremia and postobstructive pneumonia who did not improve with treatment and made decision to transition to hospice care for symptom management. Orders written. Morphine 2 mg IV every 2 hours as needed for pain/dyspnea. For anxiety, Ativan 0.5 mg IV every 4 hours as needed. Increase scopolamine to 2 patches every 72 hours. Robinul 0.4 mg every 4 hours as needed for congestion. Continue high flow oxygen therapy, TRC ordered and therapy will titrate flow when necessary.
[2017-01-27 07:36] VITALS: BP 96/52
--- NOTE | 2017-01-27 10:07 | PN- Att Addend ---
Attending Addendum Attending Brief Note Patient was transferred to hospice comfort care. Patient in no acute distress his oxygen is on, his vital signs are stable. Will continue treatment as per hospice Vital Signs Date Time Temp Pulse Resp B/P Pulse O2 O2 Flow FiO2 Ox Delivery Rate 01/27 800 Nasal Cannula 01/27 0736 97.6 112 20 96/52 90 Nasal 65% Cannula 01/27 0000 Nasal Cannula 01/26 2228 Nasal 65% Cannula 01/26 2009 93 Nasal 65% Cannula 01/26 1715 Nasal 65% Cannula 01/26 1623 98.2 95 18 120/60 94 01/26 1600 Nasal 55% Cannula 01/26 1448 Nasal 65% Cannula Intake & Output 01/27 1600 01/27 0800 01/27 0000 Intake Total 0 0 Output Total 200 100 Balance -200 -100 Intake, IV 0 0 Intake, Oral 0 0 Output, Urine 200 100
--- NOTE | 2017-01-27 13:44 | PN- Gen Med ---
Assessment/Plan Assessment: 76-year-old male with past medical history of rheumatoid arthritis, COPD with recent antibiotic treatment for exacerbation admitted with acute hypoxic respiratory failure in setting of recently discovered masses in the lung and liver highly suspicious for carcinoma/metastatic disease. Patient also with gram-positive bacteremia and postobstructive pneumonia who did not improve with treatment and made decision to transition to hospice care for symptom management. Pt. appears comfortable. Improvement of congestion with scopolomine patch. Problem List: 1. Acute respiratory failure with hypoxia 2. COPD (chronic obstructive pulmonary disease) 3. Bacteremia due to Gram-positive bacteria Plan: Continue with supportive care, prn medications. Subjective Subjective: Family at bedside. Pt has not required any morphine over night. He has had ativan x 1 for anxiety/restlessness. He is currently unresponsive. Family wishes to continue with high flow oxygen. Review of Systems Constitutional: Reports: see HPI. Objective Last 24 Hrs of Vital Signs/I&O Vital Signs Date Time Temp Pulse Resp B/P Pulse O2 O2 Flow FiO2 Ox Delivery Rate 01/27 1030 Nasal 65% Cannula 01/27 0800 Nasal Cannula 01/27 0736 97.6 112 20 96/52 90 Nasal 65% Cannula 01/27 0000 Nasal Cannula 01/26 2228 Nasal 65% Cannula 01/26 2009 93 Nasal 65% Cannula 01/26 1715 Nasal 65% Cannula 01/26 1623 98.2 95 18 120/60 94 01/26 1600 Nasal 55% Cannula 01/26 1448 Nasal 65% Cannula Intake & Output 01/27 1600 01/27 0800 01/27 0000 Intake Total 0 0 Output Total 200 100 Balance -200 -100 Intake, IV 0 0 Intake, Oral 0 0 Output, Urine 200 100 Physical Exam General Appearance: No Acute Distress HEENT: mucous membranes dry Cardiovascular: Normal S1, Normal S2, tachycardic Lungs: Clear to Auscultation, Normal Air Movement Extremities: bipedal edema 1-2+, trace mottling bilat. feet noted
--- NOTE | 2017-01-28 14:31 | Discharge Summary ---
Visit Information Visit Dates Admission Date: 01/26/17 Discharge Date: 01/27/17 Hospital Course Course Attending Physician: ANALISA HAQUE MD Primary Care Physician: ANALISA HAQUE MD Hospital Course: 76-year-old male with past medical history of rheumatoid arthritis, COPD with recent antibiotic treatment for exacerbation admitted with acute hypoxic respiratory failure in setting of recently discovered masses in the lung and liver highly suspicious for carcinoma/metastatic disease. Patient also with gram-positive bacteremia and postobstructive pneumonia who did not improve with treatment and made decision to transition to hospice care for symptom management.He was kept comfortable with morphine and ativan until he passed peacefully. Allergies: Coded Allergies: Sulfa (Sulfonamide Antibiotics) (UNKNOWN 02/12/16) Disposition Summary Disposition Principal Diagnosis: Acute hypoxic respiratory failure Chronic Obstructive pulmonary disease with acute exacerbation Gram positive bacteremia Additional Diagnosis: Lung Mass Liver Mass Discharge Disposition: Discharge Instructions General Discharge Information Code Status: Hospice Patient's Diet: N/A Patient's Activity: N/A Follow-Up Instructions/Appts: N/A Copies To: ANALISA HAQUE MD
== END 2017-01-27 19:35 | disposition expired | DRG 189 ==
LOC: 2NA 14:27
PROVIDERS: ADMIT Internal Medicine
DX: J96.01 Acute respiratory failure with hypoxia (principal); J44.9 Chronic obstructive pulmonary disease, unspecified; B96.89 Other specified bacterial agents as the cause of diseases classified elsewhere; Z51.5 Encounter for palliative care